=== PATIENT | female | born 1985 | race Two or more races ===

== ENCOUNTER → 2017-09-13 11:43 | Outpatient (CLI) | payer OTHER, SELFPAY ==
--- NOTE | 2017-09-13 12:15 | CT_ITS ---
CT abdomen pelvis w con CLINICAL INDICATION: ITS.REASON: NAUSEA,VOMITING WITH BLOOD, ABD PAIN ORDERING PHYSICIAN: Charley Chanel PATIENT AGE: 31 years TECHNIQUE: Axial images obtained with sagittal and coronal reformats. All CT scans at the facility use one or more dose reduction, viz: automated exposure control; ma/kV adjustment per patient size (including targeted exams where dose is matched to indication; i.e. head); or iterative reconstruction technique. PROCEDURE: Oral Contrast: Gastroview IV Contrast: 75 mL's of Isovue-370 . FINDINGS: No acute finding in the lung bases. No focal liver lesion. Prior cholecystectomy with only minimal prominence of the biliary tree. The spleen, adrenal glands, and pancreas are unremarkable. No renal or ureteral calculi or hydronephrosis. Unremarkable appendix. No evidence of diverticulitis, intestinal obstruction, or free air. There is a tiny umbilical hernia which contains fat. There is a small amount fluid in the cul-de-sac. There is a macrolobulated 18 mm isodensity right adnexa with a thin rim of contrast enhancement and may be due to ruptured ovarian cyst. No acute bony anomalies. IMPRESSION: 1. Suspect ruptured right ovarian cyst measuring 18 mm with a small amount fluid in the cul-de-sac. 2. Otherwise negative CT abdomen pelvis
== END ==
PROVIDERS: PCP Family Medicine; Visit Provider Nurse Practitioner
DX: R11.2 Nausea with vomiting, unspecified (principal); R10.9 Unspecified abdominal pain; K92.0 Hematemesis
CPT/HCPCS: 74177; Q9967

== ENCOUNTER → 2017-09-20 08:04 | Outpatient (CLI) | payer OTHER, SELFPAY ==
--- NOTE | 2017-09-20 08:12 | FL_ITS ---
FL upper GI w air HISTORY: ITS.REASON: NAUSEA, VOMITING,ABD PAIN, HEMATEMESIS ORDERING PHYSICIAN: Alexx Vivas MD PATIENT AGE: 31 years COMPARISON: FINDINGS: The esophagus, stomach, and duodenum have an unremarkable appearance. There is no evidence of hiatal hernia. No ulcer or mass evident. No mucosal abnormalities apparent. There is normal peristalsis. The duodenal C-loop is nondisplaced. There has been prior cholecystectomy FLUOROSCOPY TIME : 1 minute and 55 seconds. IMPRESSION: Negative upper GI
[2017-09-20 10:26] LABS: Alanine Aminotransferase 31 U/L (12-78); Albumin Level 3.9 gm/dL (3.4-5.0); Albumin/Globulin Ratio 1.1 (1.1-1.8); Alkaline Phosphatase 57 U/L (46-116); Amylase 45 U/L (25-125); Aspartate Amino Transferase 18 U/L (15-37); Bilirubin,Total 0.5 mg/dL (0.2-1.0); Blood Urea Nitrogen 13 mg/dL (7-18); Calcium 8.8 mg/dL (8.5-10.1); Carbon Dioxide 26 mmol/L (21.0-32.0); Chloride 105 mmol/L (98-107); Creatinine,Serum 0.58 mg/dL (0.55-1.02); Estimated Glomerular Filt Rate 122 ml/min (>60); GFR (African American) 148 ML/MIN (>60); Globulin 3.6 gm/dl (1.3-3.2); Glucose 98 mg/dL (74-106); Lipase 122 u/L (73-393); Sodium 141 mmol/L (136-145); Total Protein,Serum 7.5 gm/dL (6.4-8.2)
== END ==
PROVIDERS: Nurse Practitioner; Family Provider Family Medicine; PCP Family Medicine; Visit Provider Family Medicine
DX: R11.2 Nausea with vomiting, unspecified (principal); R10.9 Unspecified abdominal pain; K92.0 Hematemesis
CPT/HCPCS: 36415; 74247; 80053; 82150; 83690

== ENCOUNTER → 2017-09-25 14:07 | Outpatient (POV) | payer OTHER, SELFPAY | PROVIDERS: Family Provider Family Medicine; PCP Family Medicine; Visit Provider Nurse Practitioner Acute Care | DX: Z00.00 Encounter for general adult medical examination without abnormal findings (principal) ==

== ENCOUNTER → 2017-10-05 09:57 | Outpatient (CLI) | payer OTHER, SELFPAY ==
--- NOTE | 2017-10-05 09:58 | US_ITS ---
US transvaginal HISTORY: Pelvic pain/pressure, bleeding ITS.REASON: US T/V- Heavy bleeding ORDERING PHYSICIAN: Robyn Miguel MD PATIENT AGE: 32 years Comparison: None FINDINGS: The uterus measures 10 x 4 x 6 cm with a combined endometrial thickness of 9 mm. No uterine mass evident. The left ovary is 3 x 2 cm and contains small follicles and a small cyst measuring up to 1.5 cm. The right ovary measures 4 x 2.7 cm containing small follicles and a cyst at 1.7 cm No cul-de-sac fluid evident. IMPRESSION: 1. Mildly prominent uterus with endometrial thickness upper limits of normal 2. Small bilateral ovarian cysts
== END ==
PROVIDERS: Family Provider Family Medicine; PCP Family Medicine; Visit Provider Obstetrics & Gynecology
DX: N92.0 Excessive and frequent menstruation with regular cycle (principal)
CPT/HCPCS: 76830

== ENCOUNTER → 2017-11-20 10:18 | Outpatient (CLI) | payer OTHER, SELFPAY ==
[2017-11-20 10:51] LABS: Basophils % 0.2 % (0.1-2.0); Eosinophils # 0.2 K/mm3 (0.0-0.4); Eosinophils % 3.1 % (0.1-12.0); Hematocrit 38.8 % (37.0-47.0); Lymphocytes # 1.9 K/mm3 (0.7-4.5); Lymphocytes % 27.1 K/mm3 (10-50); Mean Corpuscular HGB Conc 33.5 g/dL (31.8-35.4); Mean Corpuscular Hemoglobin 28.5 pg (27.0-31.2); Mean Corpuscular Volume 85.1 fl (81-99); Mean Platelet Volume 8.8 fl (7.4-10.4); Monocytes # 0.3 K/mm3 (0.1-1.0); Monocytes % 4.7 % (1.7-9.3); Neutrophils # 4.6 K/mm3 (1.8-7.8); Neutrophils % 64.9 % (37.0-80.0); Platelet Count 266 K/mm3 (142-424); Red Blood Count 4.56 M/mm3 (4.20-5.40); Red Cell Distribution Width 13.1 % (11.5-17.5); White Blood Count 7.1 K/mm3 (4.8-10.8)
[2017-11-20 11:28] LABS: HCG Qualitative, Serum Negative (Negative)
[2017-11-20 11:58] LABS: Anion Gap 11.9 mEq/L (5-15); Blood Urea Nitrogen 12 mg/dL (7-18); Calcium 8.6 mg/dL (8.5-10.1); Carbon Dioxide 26 mmol/L (21.0-32.0); Chloride 107 mmol/L (98-107); Creatinine,Serum 0.58 mg/dL (0.55-1.02); Estimated Glomerular Filt Rate 121 ml/min (>60); GFR (African American) 147 ML/MIN (>60); Glucose 87 mg/dL (74-106); Potassium 3.9 mmoL/L (3.5-5.1); Sodium 141 mmol/L (136-145)
== END ==
PROVIDERS: Visit Provider Obstetrics & Gynecology
DX: Z01.818 Encounter for other preprocedural examination (principal); N92.0 Excessive and frequent menstruation with regular cycle; R10.2 Pelvic and perineal pain; N94.6 Dysmenorrhea, unspecified; N85.2 Hypertrophy of uterus
CPT/HCPCS: 36415; 80048; 84703; 85025

== ENCOUNTER → 2017-11-21 12:08 | Outpatient (CLI) | payer OTHER, SELFPAY | PROVIDERS: Family Provider Family Medicine; PCP Family Medicine; Visit Provider Obstetrics & Gynecology | DX: Z01.818 Encounter for other preprocedural examination (principal) | CPT/HCPCS: 36415; 86850 ==

== ENCOUNTER 2017-11-23 08:30 | Inpatient (IN) ==
--- NOTE | 2017-11-23 10:10 | Progress Note ---
[facility] Anesthesia Checklist - Patient Identification Patient Identification: Arm Band - Structural Data Admitted From: Home Planned Operative Procedure/s: maddy bso Consent for Planned Operative Procedure(s) Verified: Yes Verified Documents: Surgical Consent, History and Physical - NPO Status Verified Time NPO: 00:00 - Additional verifications Anesthesia Reactions: No - Airway Assessment C-Spine Mobility Assessed: Yes (mp2) TMJ Mobility Assessed: Yes Dentition: Good Dentition - Neurological Assessment Level of Consciousness: Awake, Alert - Anesthesia Plan Anesthesia Risk discussed: Yes Anesthesia Plan: Verified ASA Class: II Anesthesia Type: General (with TAP block) [facility] Anesthesia HX Medical History: Reports:: Anxiety Denies:: Asthma, Cancer, Depression, Diabetes Mellitus Type 1, Diabetes Mellitus Type 2, Hyperlipidemia, Hypertension, Internal Pacemaker, Lung Disease , Migraine, MRSA, Seizures Other Medical History: Denies: Blood Transfusion Reaction Other Surgeries: Yes: Cholecystectomy. No: Pacemaker Amputation: No Fractures: No *Family Hx:: Cancer, Diabetes, Thyroid Disorder
--- NOTE | 2017-11-23 13:11 | Progress Note ---
[facility] Anesthesia Record Part II Discharge Time: 13:35 Destination: 2nd floor PACU nurse assessment reviewed?: Yes Patient Condition:: Good Anesthesia Complications:: None
--- NOTE | 2017-11-23 13:11 | Progress Note ---
[facility] Anesthesia Record Part I Intake, IV Amount: 2,000 Estimated blood loss (mL): 300 Urine output (mL): 150 Blood Pressure: 141/71 SaO2: 96 Pulse Rate: 82 Respiratory Rate: 16 Temperature: 98.3 F Patient is:: Drowsy, Stable Stable to PACU at:: 13:05
--- NOTE | 2017-11-23 14:59 | Pharmacy Consult Notes ---
[facility] VTE Monitoring - Patient Demographics Admission date: 11/23/17 Report Date: 11/23/17 Time: 14:59 Allergies/Adverse Reactions: Patient Allergies No Known Allergies Allergy (Verified 10/30/17 13:53) Height: 1.63 m Weight: 78.471 kg - VTE Risk Was VTE Risk Assessment Performed: Yes Clinical Trial Participant: No - Prophylaxis VTE Prophylaxis Ordered?: Yes Types of VTE Prophylaxis: IPCS Knee High
--- NOTE | 2017-11-23 22:00 | Operative Note ---
Date of procedure: 11/23/17 Pre-op Diagnosis:: 1. Heavy menstrual bleeding 2. Severe dysmenorrhea 3. Chronic pelvic pain 4. Bulky/enlarged uterus 5. Bilateral ovarian cysts Post-op Diagnosis:: 1. Heavy menstrual bleeding 2. Severe dysmenorrhea 3. Chronic pelvic pain 4. Pelvic congestion Procedure performed:: Total abdominal hysterectomy, bilateral salpingectomy Surgeon:: Robyn Miguel MD Batch Mixer(s):: Stuart Baptiste MD ASSEMBLER RUBBER FOOTWEAR:: Chauncey Perry Anesthesia: GETA Estimated blood loss (mL): 300 Operative findings:: Grossly normal size uterus without obvious fibroids Grossly normal fallopian tubes and ovaries bilaterally Extensive pelvic congestion, bilaterally No evidence of endometriosis or pelvic adhesions Operative note:: The patient was taken to the operating room and general anesthesia was administered without difficulty. She was prepped and draped in the supine position. A Pfannenstiel skin incision was made approximately 2 cm above the pubic symphysis with a scalpel and carried down to the underlying layer of fascia. The fascia was incised in the midline and extended laterally sharply. The rectus muscles were sharply dissected off the fascia and in the midline. The peritoneum was turned and sharply, with good visualization of the underlying structures. The peritoneal incision was extended bluntly. A survey of the patient's pelvis and abdomen revealed a grossly normal sized uterus without any obvious fibroids. No evidence of endometriosis or pelvic adhesions were observed. Significant pelvic congestion was noted bilaterally, adjacent to both adnexa, and extending throughout the IP ligaments on both sides. At this time, the patient was placed in Trendelenburg and a Chris retractor was placed in the abdomen; the bowel was packed with moist laparotomy sponges. Tooth tenaculum was placed on the uterine fundus and the uterus was elevated out of the pelvis. No fibroids or other visible uterine lesions were noted. The round ligaments were identified and transected and suture-ligated. The anterior lip of the broad ligament was dissected medially on both sides and the bladder flap was created digitally. The posterior leaf of the broad ligament was dissected until the ureters were able to be identified on either side and noted to be free of the forthcoming adnexal pedicles. Infundibulopelvic ligaments were doubly clamped transected and suture ligated on either side, with excellent hemostasis noted. The fallopian tubes on either side were clamped transected and suture ligated and the specimens were set aside for pathology. The uterine arteries were skeletonized on either side, and were clamped, transected and suture ligated with excellent hemostasis. The bladder flap was further bluntly dissected off the lower uterine segment with excellent hemostasis and without injury to the bladder. The cardinal and uterosacral ligaments were clamped transected and suture ligated on both sides until the vaginal mucosa was entered. The vaginal incision was extended circumferentially with the Jorganson scissors; the uterus and cervix were removed abdominally and sent for pathology, along with the fallopian tubes. The vaginal cuff angles were closed 0 Vicryl [id number] sutures and were transfixed to the ipsilateral cardinal and uterosacral ligaments. The remainder of the vaginal cuff was closed with 0 Vicryl interrupted sutures. The pelvis was copiously irrigated with a solution of sterile water containing 1 g of Ancef. The cuff was examined and found to be hemostatic. Tamar was placed over the vaginal cuff and area of bladder flap dissection for additional hemostasis. The adnexal pedicles and area of the fallopian tube excision were reexamined and remained hemostatic. All instruments were removed from the patient's pelvis and abdomen and an initial count was correct. The peritoneum was closed with 2-0 Vicryl in a running fashion. Fascia was closed with 0 Vicryl in a running fashion. The skin was closed with wedny. The patient tolerated the procedure well; sponge/lap/needle and instrument counts were correct 2. She was taken to the recovery room awake in stable condition. Estimated blood loss: 300cc. Condition: stable Disposition: PACU Specimens:: Uterus and bilateral fallopian tubes Complications:: None
[2017-11-24 06:06] LABS: Hematocrit 31.6 % (37.0-47.0); Hemoglobin 10.6 g/dL (12.2-16.2)
[2017-11-24 06:23] LABS: Anion Gap 7.9 mEq/L (5-15); Calcium 8.2 mg/dL (8.5-10.1); Potassium 3.9 mmoL/L (3.5-5.1)
--- NOTE | 2017-11-24 15:28 | Progress Note ---
Internal Medicine - PN: Subj *Date: 11/24/17 *Time: 15:24 Interval history: POD #1 LUIS M, bilateral salpingectomy Having some difficulty with pain management overnight because IV narcotics making her feel drowsy; switched over to po pain meds for today Denies nausea/vomiting and tolerating clear liquids Catheter removed but has not voided yet Exam Vital signs and Labs for Last 24 Hours: Temp Pulse Resp BP Pulse Ox 97.8 F 70 18 103/57 100 11/24/17 12:30 11/24/17 12:30 11/24/17 12:30 11/24/17 12:30 11/24/17 12:30 Laboratory Results - last 24 hr 11/23/17 10:50: Urine Color Yellow, Urine Appearance Clear, Urine pH 7.5, Ur Specific [place] 1.020, Urine Protein Negative, Urine Glucose (UA) Negative, Urine Ketones Negative, Urine Blood Trace-l, Urine Nitrate Negative, Urine Bilirubin Negative, Urine Urobilinogen 0.2, Ur Leukocyte Esterase Negative, Urine RBC Occasional, Urine WBC Occasional, Ur Squamous Epith Cells 10-20, Urine Bacteria Trace 11/24/17 05:04: Hgb 10.6 L, Hct 31.6 L 11/24/17 05:04: Sodium 138, Potassium 3.9, Chloride 106, Carbon Dioxide 28, Anion Gap 7.9, BUN 6 L, Creatinine 0.61, Estimated Creat Clear 166, Estimated GFR 114, Est GFR ( Amer) 138, Glucose 138 H, Calcium 8.2 L I & O for Last 24 hours: Intake & Output 11/22/17 11/23/17 11/24/17 11/25/17 11:59 11:59 11:59 11:59 Intake Total 4121 / 4121 Output Total 4850 / 4850 350 / 350 Balance -729 / -729 -350 / -350 Weight 173 lb 173 lb - Constitutional no acute distress - *Routine HEENT Exam Head: Present: normocephalic, atraumatic - *Routine Respiratory Exam Present: CTA bilaterally. Absent: respiratory distress - *Routine Cardiovascular Exam Present: RRR. Absent: tachycardia - *Routine Abdominal Exam Present: soft. Absent: tenderness, distended, guarding - *Routine Extremities Exam Absent: edema, tenderness - *Routine Skin Exam Present: intact, dry, warm. Absent: lesions, rash - *Routine Neurological Exam Present: alert, oriented X3. Absent: altered mental status - Routine Psychiatric Exam Present: normal affect. Absent: depressed, anxious Assessment and Plan (1) H/O hysterectomy for benign disease Current visit: Yes Status: Acute Category: Surgical Code(s): Z90.710 - Acquired absence of both cervix and uterus (2) Heavy menstrual bleeding Current visit: No Status: Acute Category: Medical Code(s): N92.0 - Excessive and frequent menstruation with regular cycle (3) Pain in female pelvis Current visit: No Status: Acute Category: Medical Code(s): R10.2 - Pelvic and perineal pain (4) Severe dysmenorrhea Current visit: No Status: Acute Category: Medical Code(s): N94.6 - Dysmenorrhea, unspecified (5) Pelvic congestion Current visit: No Status: Acute Category: Medical Code(s): N94.89 - Other specified conditions associated with female genital organs and menstrual cycle - Assessment and plan all Dx Assessment and Plan for all problems:: Routine postop care Advance care as tolerated Anticipate discharge POD #3
--- NOTE | 2017-11-25 17:43 | Progress Note ---
Internal Medicine - PN: Subj *Date: 11/25/17 *Time: 17:40 Interval history: POD #2 LUIS M, bilateral salpingectomy Denies N/V; tolerating regular diet. Voiding without difficulty, +flatus Pain control not as good with po dilaudid; will switch back to oxycodone to see if better relief Exam Vital signs and Labs for Last 24 Hours: Temp Pulse Resp BP Pulse Ox 98.8 F 69 18 133/69 98 11/25/17 13:39 11/25/17 13:39 11/25/17 13:39 11/25/17 13:39 11/25/17 13:39 I & O for Last 24 hours: Intake & Output 11/23/17 11/24/17 11/25/17 11/26/17 11:59 11:59 11:59 11:59 Intake Total 4121 / 4121 480 / 480 Output Total 4850 / 4850 1300 / 1300 Balance -729 / -729 -820 / -820 Weight 173 lb - Constitutional no acute distress - *Routine Respiratory Exam Absent: respiratory distress - *Routine Cardiovascular Exam Absent: tachycardia - *Routine Abdominal Exam Present: soft, tenderness (appropriate postop pain incision). Absent: distended , guarding - *Routine Extremities Exam Absent: edema, tenderness - *Routine Skin Exam Present: intact (incision dry/intact) - *Routine Neurological Exam Present: alert, oriented X3 - Routine Psychiatric Exam Present: normal affect. Absent: depressed, anxious Assessment and Plan (1) H/O hysterectomy for benign disease Current visit: Yes Status: Acute Category: Surgical Code(s): Z90.710 - Acquired absence of both cervix and uterus (2) Heavy menstrual bleeding Current visit: No Status: Acute Category: Medical Code(s): N92.0 - Excessive and frequent menstruation with regular cycle (3) Pain in female pelvis Current visit: No Status: Acute Category: Medical Code(s): R10.2 - Pelvic and perineal pain (4) Severe dysmenorrhea Current visit: No Status: Acute Category: Medical Code(s): N94.6 - Dysmenorrhea, unspecified (5) Pelvic congestion Current visit: No Status: Acute Category: Medical Code(s): N94.89 - Other specified conditions associated with female genital organs and menstrual cycle - Assessment and plan all Dx Assessment and Plan for all problems:: POD#2 Routine PO care pain meds changed to oxycodone anticipate dc tomorrow
--- NOTE | 2017-11-26 14:45 | Discharge Summary ---
General - General Admission date:: 11/23/17 Discharge date: 11/26/17 HPI HPI: POD #3 LUIS M, bilateral salpingectomy Tolerating regular diet, ambulating and voiding without difficullty Having less side effects with po percocet compared to po dilaudid Ready for discharge today Hospital Course Hospital Course: as per HPI Objective Vital signs: Temp Pulse Resp BP Pulse Ox 98.3 F 76 18 111/62 100 11/26/17 12:00 11/26/17 12:00 11/26/17 12:00 11/26/17 12:00 11/26/17 12:00 no acute distress - *Routine Respiratory Exam Absent: respiratory distress - *Routine Abdominal Exam Present: soft. Absent: tenderness, distended, guarding (Incision intact with wendy) - *Routine Extremities Exam Absent: edema - *Routine Skin Exam Absent: rash - Routine Psychiatric Exam Absent: depressed, anxious DS: Diagnosis - Discharge Diagnosis (1) H/O hysterectomy for benign disease Status: Acute (2) Heavy menstrual bleeding Status: Acute (3) Pain in female pelvis Status: Acute (4) Severe dysmenorrhea Status: Acute (5) Pelvic congestion Status: Acute Discharge Plan - Patient Discharge Instructions ACTIVITY: Continue current activity, No heavy lifting - Follow up Plan Disposition: Home, Self-Retirement Medications: Home Medications Medication Instructions Recorded Confirmed Type Buspirone HCl [Buspar 10mg tablet] 5 mg PO BID 11/23/17 11/23/17 History Prescriptions/Medication Reconciliation: New Oxycodone HCl [OxyIR 5mg tablet] 10 mg PO Q4HP PRN tablet PRN Reason: Severe Pain Ibuprofen [Motrin 400mg tablet] 800 mg PO Q6HP PRN tablet PRN Reason: Mild Pain Continue Buspirone HCl [Buspar 10mg tablet] 5 mg PO BID
== END 2017-11-26 16:40 | disposition home or self-care (01) ==
LOC: OB 08:51 → EDSTATUS 10:30 → OB 13:45
PROVIDERS: ADMIT Obstetrics & Gynecology; ATTEND Obstetrics & Gynecology

== ENCOUNTER → 2017-12-25 10:38 | Outpatient (POV) | payer OTHER, SELFPAY | PROVIDERS: Family Provider Family Medicine; PCP Family Medicine; Visit Provider Nurse Practitioner Acute Care | DX: Z00.00 Encounter for general adult medical examination without abnormal findings (principal) ==

== ENCOUNTER → 2018-01-12 09:32 | Outpatient (CLI) | payer OTHER, SELFPAY ==
--- NOTE | 2018-01-12 | CA_ITS ---
PROCEDURE: 2-D M-mode and color Doppler study INDICATIONS FOR THE TEST: Chest pain+ COPD Heart Murmur Tobacco Smoking Palpitations+ Fatigue+ Syncope+ Edema Hypertension Diabetes Mellitus Rheumatic Fever SOB CORDERO Obesity Hyperlipidemia Family History HD+ Additional History PATIENT INFORMATION HEIGHT: 64 WEIGHT: 172 GENDER: Female B/P: 100/76 2-D/M-MODE INTERPRETATION: 2-D MEASUREMENTS OBSERVED VALUES IN CMS Right Ventricular Dimension (RVDd) 2.2 Interventricular Septum (Thickness)(IVsd) 0.8 Left Ventricular Internal Dimensions(LVIDd) 4.1 Left Ventricular Posterior Wall (Thickness)(LVPWd) 0.8 Aortic Root 2.4 Aortic Cusp Separation 1.9 Left Atrial Dimensions (LAD) 3.3 2D 1. Left atrium is normal size, left ventricle is normal size, there is no concentric left ventricular hypertrophy, visually estimated ejection fraction 55% with no obvious regional wall motion abnormality. 2. The right atrium and right ventricle are normal size and contractility. 3. The aortic, mitral and tricuspid valve are grossly normal. 4. The pulmonic valve is poorly visualized. 5. No significant pericardial effusion noted. DOPPLER INTERROGATION: Doppler interrogation of the aortic, mitral and tricuspid valvular presence of mild mitral and tricuspid regurgitation, tricuspid regurgitation jet velocity is insufficient for calculation of the right ventricular systolic pressure, diastolic parameters are within normal range. CONCLUSION: 1. Normal left ventricular size, preserved left ventricular systolic function, visually estimated ejection fraction 55% with no obvious regional wall motion abnormality diastolic parameters are within normal range. 2. Mild mitral and tricuspid regurgitation 3. No significant pericardial effusion noted.
--- NOTE | 2018-01-12 09:35 | XR_ITS ---
XR chest 2V HISTORY: ITS.REASON: LEFT CHEST PRESSURE ORDERING PHYSICIAN: Alexx Vivas MD PATIENT AGE: 32 years COMPARISON: 02/29/2016 FINDINGS: The cardiomediastinal silhouette and pulmonary vascularity are within normal limits. The lungs are clear without infiltrates, suspicious nodules, or pleural effusions. No acute bony abnormalities. IMPRESSION: Negative chest, no acute finding
--- NOTE | 2018-01-12 13:04 | US_ITS ---
US thyroid HISTORY: Enlarged thyroid gland ITS.REASON: H/O MALIGNANT NEOPLASM ORDERING PHYSICIAN: Alexx Vivas MD PATIENT AGE: 32 years Comparison: 03/10/2017 FINDINGS: The isthmus is slightly prominent 4 mm. The right lobe is 4.5 x 1.6 x 1.9 cm. There is homogeneous echogenicity. The left lobe is 4.4 x 1.3 x 1.9 cm with homogeneous echogenicity. No nodules evident. IMPRESSION: Mild thyromegaly, no thyroid nodules appear
== END ==
PROVIDERS: Family Provider Family Medicine; PCP Family Medicine; Visit Provider Family Medicine
DX: R07.89 Other chest pain (principal); R00.2 Palpitations; Z85.850 Personal history of malignant neoplasm of thyroid
CPT/HCPCS: 71046; 76536; 93005; 93306

== ENCOUNTER → 2018-01-14 15:59 | Outpatient (CLI) | payer OTHER, SELFPAY | PROVIDERS: PCP Family Medicine; Visit Provider Nurse Practitioner | DX: R00.2 Palpitations (principal) | CPT/HCPCS: 93225; 93226 ==

== ENCOUNTER → 2018-02-01 13:32 | Outpatient (CLI) | payer OTHER, SELFPAY ==
--- NOTE | 2018-02-01 13:33 | US_ITS ---
US transvaginal HISTORY: ITS.REASON: US T/V- Pelvic Pain ORDERING PHYSICIAN: Robyn Miguel MD PATIENT AGE: 32 years Comparison: 10/05/2017 FINDINGS: There has been an interval hysterectomy. The vaginal cuff has an unremarkable appearance. The left ovary is 3.5 x 3.8 cm and contains a 2.5 cm complex cyst with some internal echoes. There is blood flow to the left ovary. There is a small amount cul-de-sac fluid and small amount fluid adjacent to the left ovary.. The right ovary is 3.3 x 2.9 cm. Previously noted 1.5 cm cyst of the right ovary is no longer apparent. There are a few small follicles of the right ovary. IMPRESSION: Interval hysterectomy. 2.5 cm complex left ovarian cyst consistent with hemorrhagic cyst Small right ovarian follicles
== END ==
PROVIDERS: Family Provider Family Medicine; PCP Family Medicine; Visit Provider Obstetrics & Gynecology
DX: R10.2 Pelvic and perineal pain (principal)
CPT/HCPCS: 76830

== ENCOUNTER → 2018-02-05 08:43 | Outpatient (POV) | payer OTHER, SELFPAY | PROVIDERS: Family Provider Family Medicine; PCP Family Medicine; Visit Provider Nurse Practitioner Acute Care | DX: Z00.00 Encounter for general adult medical examination without abnormal findings (principal) ==

== ENCOUNTER → 2018-02-05 13:13 | Outpatient (CLI) | payer OTHER, SELFPAY ==
--- NOTE | 2018-02-05 13:15 | US_ITS ---
US kidney retroperitoneal comp HISTORY: ITS.REASON: HEMATURIA ORDERING PHYSICIAN: Alexx Vivas MD PATIENT AGE: 32 years Comparison: None FINDINGS: RIGHT KIDNEY:Unremarkable. Normal size and echogenicity. No hydronephrosis 10 x 4 x 5 cm LEFT KIDNEY:Unremarkable. No hydronephrosis. Normal size and echogenicity. 11 by 7 x 6 cm OTHER FINDINGS: No other pertinent findings IMPRESSION: Unremarkable bilateral renal ultrasound
== END ==
PROVIDERS: Family Provider Family Medicine; PCP Family Medicine; Visit Provider Family Medicine
DX: R31.9 Hematuria, unspecified (principal)
CPT/HCPCS: 76770

== ENCOUNTER → 2018-03-05 12:27 | Outpatient (CLI) | payer OTHER, SELFPAY ==
--- NOTE | 2018-03-05 12:32 | US_ITS ---
US transvaginal HISTORY: ITS.REASON: Pelvic Pain ORDERING PHYSICIAN: Stuart Baptiste MD PATIENT AGE: 32 years Comparison: None FINDINGS: There is been prior hysterectomy. The left ovary is 4.8 x 3.8 x 4.2 cm and contains a 4.3 x 3 cm cyst. There are internal septations of the cysts have a somewhat lacy appearance and may represent a hemorrhagic ovarian cyst. Small amount fluid is present adjacent to the left ovary. The right ovary is 2.5 x 2.3 cm and contains a 9 mm cyst. IMPRESSION: 1. 4.3 x 3 cm complex left ovarian cyst consistent with a hemorrhagic cyst. Suggest 6-12 week follow-up to confirm resolution. Small amount fluid is noted adjacent to the left ovary 2. Prior hysterectomy
== END ==
PROVIDERS: Family Provider Family Medicine; PCP Family Medicine; Visit Provider Obstetrics & Gynecology
DX: R10.2 Pelvic and perineal pain (principal)
CPT/HCPCS: 76830

== ENCOUNTER → 2018-04-05 14:23 | Outpatient (CLI) | payer OTHER, SELFPAY ==
[2018-04-05 14:26] LABS: Microscopic, Urine URINE MICROSCOPIC (MICROSCOPIC)
[2018-04-05 14:49] LABS: Appearance,Urine CLEAR (Clear); Bilirubin,Urine Negative (Negative); Blood, Urine TRACE-I (Negative); Color,Urine YELLOW (Yellow); Glucose,Urine (UA) Negative (Negative); Ketones,Urine Negative (Negative); Leukocyte Esterase,Urine Negative (Negative); Nitrate,Urine Negative (Negative); Protein,Urine Negative (Negative); Urobilinogen,Urine 0.2 EU/dl (0.2)
[2018-04-05 14:58] LABS: Basophils % 0.3 % (0.1-2.0); Eosinophils # 0.2 K/mm3 (0.0-0.4); Eosinophils % 1.8 % (0.1-12.0); Hematocrit 39.1 % (37.0-47.0); Lymphocytes # 2.8 K/mm3 (0.7-4.5); Lymphocytes % 27.4 % (10-50); Mean Corpuscular HGB Conc 33.2 g/dL (31.8-35.4); Mean Corpuscular Hemoglobin 26.4 pg (27.0-31.2); Mean Corpuscular Volume 79.6 fl (81-99); Mean Platelet Volume 8.2 fl (7.4-10.4); Monocytes # 0.4 K/mm3 (0.1-1.0); Monocytes % 3.9 % (1.7-9.3); Neutrophils # 6.8 K/mm3 (1.8-7.8); Neutrophils % 66.6 % (37.0-80.0); Platelet Count 316 K/mm3 (142-424); Red Blood Count 4.91 M/mm3 (4.20-5.40); Red Cell Distribution Width 15.2 % (11.5-17.5); White Blood Count 10.3 K/mm3 (4.8-10.8)
[2018-04-05 16:33] LABS: Alanine Aminotransferase 45 U/L (12-78); Albumin Level 3.9 gm/dL (3.4-5.0); Alkaline Phosphatase 82 U/L (46-116); Anion Gap 16.9 mEq/L (5-15); Aspartate Amino Transferase 30 U/L (15-37); Bilirubin,Total 0.4 mg/dL (0.2-1.0); Blood Urea Nitrogen 11 mg/dL (7-18); Calcium 8.8 mg/dL (8.5-10.1); Carbon Dioxide 25 mmol/L (21.0-32.0); Chloride 100 mmol/L (98-107); Creatinine,Serum 0.55 mg/dL (0.55-1.02); Estimated Glomerular Filt Rate 129 ml/min (>60); GFR (African American) 156 ML/MIN (>60); Globulin 3.9 gm/dl (1.3-3.2); Glucose 103 mg/dL (74-106); Potassium 3.9 mmoL/L (3.5-5.1); Sodium 138 mmol/L (136-145); Total Protein,Serum 7.8 gm/dL (6.4-8.2)
[2018-04-05 19:02] LABS: Bacteria,Urine 2+ /lpf
[2018-04-09 11:14] LABS: Cancer Antigen (CA) 125 8.9 U/mL (0.0-38.1)
== END ==
PROVIDERS: Visit Provider Obstetrics & Gynecology
DX: Z01.818 Encounter for other preprocedural examination (principal); R19.00 Intra-abdominal and pelvic swelling, mass and lump, unspecified site; R10.2 Pelvic and perineal pain; N94.9 Unspecified condition associated with female genital organs and menstrual cycle
CPT/HCPCS: 36415; 80053; 81001; 85025; 86316; 87086

== ENCOUNTER 2018-04-10 06:44 | Inpatient (IN) ==
--- NOTE | 2018-04-10 07:30 | Progress Note ---
[facility] Anesthesia Checklist - Patient Identification Patient Identification: Arm Band - Structural Data Admitted From: Home Planned Operative Procedure/s: pelviscopy, bso Consent for Planned Operative Procedure(s) Verified: Yes Verified Documents: Surgical Consent, History and Physical - NPO Status Verified Time NPO: 00:00 - Additional verifications Anesthesia Reactions: No - Airway Assessment C-Spine Mobility Assessed: Yes (mp2) TMJ Mobility Assessed: Yes Dentition: Good Dentition - Neurological Assessment Level of Consciousness: Awake, Alert - Anesthesia Plan Anesthesia Risk discussed: Yes Anesthesia Plan: Verified Anesthesia Type: General [facility] History I have reviewed the patient's past medical history: Yes Medical History: Denies:: Anxiety, Asthma, Cancer, Depression, Diabetes Mellitus Type 1, Diabetes Mellitus Type 2, Hyperlipidemia, Hypertension, Internal Pacemaker, Lung Disease, Migraine, MRSA, Seizures Other Medical History: Denies: Blood Transfusion Reaction Other Surgeries: Yes: Cholecystectomy, Hysterectomy-Total, Hysterectomy-Partial, Other. No: Pacemaker Amputation: No Fractures: No - *Social History Educational Level: Completed College Smoking Status: Never smoker Alcohol Intake: never Alcohol Intake Frequency:: holidays/special occasions only Substance Use Type: denies use Occupational Status: unemployed Household Members: family, children - Psychiatric History Expresses thoughts of harming self/others: None Suicide Plan Description: No Plan Pschychiatric History:: Denies:: Anxiety, Depression *Family Hx:: Cancer, Diabetes, Thyroid Disorder
--- NOTE | 2018-04-10 09:49 | Operative Note ---
Date of procedure: 04/10/18 Pre-op Diagnosis:: 1. Pelvic pain. 2. Left ovarian cyst. Post-op Diagnosis:: 1. Pelvic pain. 2. Hemorrhagic left ovarian cyst. 3. Extensive pelvic adhesions. Procedure performed:: 1. Diagnostic laparoscopy. 2. Exploratory laparotomy. 3. Extensive lysis of adhesions. 4. Left oophorectomy. Surgeon:: Stuart Baptiste MD Business Info Consultant(s):: MARIAN Bowser DEFENSIVE FIRE CONTROL SYSTEMS OPERATOR:: Chauncey Perry Anesthesia: GETKajal Estimated blood loss (mL): 300 Operative findings:: 1. Extensive pelvic adhesions. 2. Hemorrhagic left ovarian cyst. Operative note:: After the patient was prepped and draped in usual fashion and general anesthesia was admitted a moist pack was placed in the vagina for elevation of the vaginal cuff during the laparoscopy. After appropriate draping, the skin on either side of the umbilicus was tented up with towel clips. A small incision was made in the base of the umbilicus with a knife, and a Veress needle was inserted into the abdominal cavity. After a demonstration of negative pressure, an adequate pneumoperitoneum was created with carbon dioxide gas. The Veress needle was then replaced with a trocar and cannula, using the [employer] system, and the trocar replaced with a laparoscope. The pelvis was socked in with adhesions. The uterus was surgically absent. Neither adnexa was able to be visualized. The density and vascularity of the adhesions led to the decision to proceed to exploratory laparotomy. The sponge stick was removed from the vagina, and the instruments removed under direct visualization. The skin incision was infused with a dilute solution of Marcaine, and closed with a subcuticular suture of 3-0 Vicryl. The patient was then repositioned and a Pierce catheter was placed. She was reprepped and draped. A low Pfannenstiel incision was then made across the midline through the previous incision, and the fat and fascia was in usual fashion, bleeders being clamped and coagulated along the way. There was a dense, rubbery band ventral added to the rectus muscle, which required extra dissection. The peritoneum was ultimately entered bluntly, and extended above and below. There were extensive omental adhesions to the anterior abdominal wall, and these were taken down with a combination of sharp dissection and cautery. A self-retaining [place] retractor with bladder blade was placed, but the pelvis was difficult to address, because of extensive dense, vascular adhesions filling the pelvis. Extensive lysis of adhesions was carefully carried out, and ultimately the left adnexa was able to be identified. A hemorrhagic cyst was leaking. The fallopian tube had previously been removed. Careful painstaking dissection was carried out and the infundibulopelvic ligament was ultimately able to be isolated and crossclamped and cut, thus removing the left ovary. Several pedicles were To sutured with 0 Vicryl. Because of oozing Surgicel was placed across the ovarian pedicle, and sewn in place. Further dissection was carried out on the right, but at no time was the ovary able to be isolated. This the patient's symptoms were primarily on the left, it was felt prudent to leave the right ovary in situ, rather than risk injury to bowel or ureter. Extensive irrigation was carried out, and Gelfoam was placed in the pelvis because of oozing. The peritoneum was grasped with 3 Yenni clamps, and closed with a running semi-locked suture of 0 Vicryl. The muscle was approximated with a running unlocked suture of 0 Vicryl. The fascia was closed with a running locked suture of #1 Vicryl. The subcutaneous fat and Luanne's fascia were closed with a running unlocked suture of 2-0 Vicryl. The skin was closed with a subcuticular suture of 3-0 Vicryl, and appropriately dressed. The urine was clear in the Pierce catheter. The sponge and needle counts correct. The estimated blood loss was 300 cc. The patient tolerated the procedure well, and was taken to PACU in excellent condition. She will be admitted postoperatively. Condition: stable Disposition: PACU Specimens:: Left ovary Complications:: None
--- NOTE | 2018-04-10 09:57 | Progress Note ---
[facility] Anesthesia Record Part I Intake, IV Amount: 2,000 Estimated blood loss (mL): 300 Urine output (mL): 150 Blood Pressure: 144/68 SaO2: 98 Pulse Rate: 78 Respiratory Rate: 16 Temperature: 99.3 F Patient is:: Drowsy, Stable Stable to PACU at:: 09:45
--- NOTE | 2018-04-10 09:58 | Progress Note ---
[facility] Anesthesia Record Part II Discharge Time: 10:15 Destination: 2nd floor PACU nurse assessment reviewed?: Yes Patient Condition:: Good Anesthesia Complications:: None
[2018-04-10 10:52] LABS: Hematocrit 35.6 % (37.0-47.0); Hemoglobin 11.8 g/dL (12.2-16.2)
--- NOTE | 2018-04-10 17:36 | Progress Note ---
Internal Medicine - PN: Subj *Date: 04/10/18 *Time: 17:35 Interval history: This is day of surgery. The patient is afebrile. Her vital signs are stable. Her urine output is somewhat low and give her a dose of Lasix. Abdomen soft. Surgery has been explained to the patient and her family. Exam Vital signs and Labs for Last 24 Hours: Temp Pulse Resp BP Pulse Ox 97.5 F L 116 H 16 114/61 100 04/10/18 15:35 04/10/18 16:35 04/10/18 16:35 04/10/18 16:35 04/10/18 16:35 Laboratory Results - last 24 hr 04/10/18 08:10: Urine Color Yellow, Urine Appearance Sl cloudy, Urine pH 6.0, Ur Specific [place] >= 1.030, Urine Protein 2+, Urine Glucose (UA) Negative, Urine Ketones Negative, Urine Blood 2+, Urine Nitrate Negative, Urine Bilirubin Negative, Urine Urobilinogen 0.2, Ur Leukocyte Esterase Negative, Urine RBC None, Urine WBC 3-5, Ur Squamous Epith Cells 5-10, Urine Bacteria Trace 04/10/18 10:40: Hgb 11.8 L, Hct 35.6 L I & O for Last 24 hours: Intake & Output 04/08/18 04/09/18 04/10/18 04/11/18 11:59 11:59 11:59 11:59 Intake Total 2074 Output Total 50 / 50 Balance 2024 Weight 168 lb
--- NOTE | 2018-04-10 19:26 | Pharmacy Consult Notes ---
[facility] Pharmacy VTE Monitoring - Patient Demographics Admission date: 04/10/18 Report Date: 04/10/18 Time: 19:26 Allergies/Adverse Reactions: Patient Allergies No Known Allergies Allergy (Verified 04/09/18 08:21) Height: 1.63 m Weight: 76.204 kg - VTE Risk Labs: VTE Related Lab Results Hgb 11.8 g/dL (12.2-16.2) L 04/10/18 10:40 Hct 35.6 % (37.0-47.0) L 04/10/18 10:40 Was VTE Risk Assessment Performed: Yes VTE Score: 1 VTE Risk Level: Very Low Risk Clinical Trial Participant: No - Prophylaxis VTE Prophylaxis Ordered?: Yes Types of VTE Prophylaxis: IPCS Knee High (POST OP) Location of Applied Device: Bilateral Lower Extremeties
[2018-04-10 20:36] LABS: Hematocrit 25.6 % (37.0-47.0)
[2018-04-10 20:38] LABS: Hemoglobin 8.6 g/dL (12.2-16.2)
--- NOTE | 2018-04-10 21:16 | Progress Note ---
Internal Medicine - PN: Subj *Date: 04/10/18 *Time: 21:09 Interval history: I was called to see this postop patient at approximately 2000 because of tachycardia and diaphoresis. She was also complaining of left chest pain and had shallow breathing. She had undergone an exploratory laparotomy early this morning. Her hemoglobin preop was 13.0 g and immediately postop was 11.8 g. The surgery was complicated in that there were extensive adhesions from her previous total abdominal hysterectomy and bilateral salpingectomies. The indication for that surgery was pelvic pain in the left adnexal mass. Initial laparoscopy this morning revealed extensive adhesions and a "socked in pelvis", necessitating the exploratory laparotomy. Even at open procedure, the surgery was difficult because of extensive adhesions. There was some oozing and the estimated blood loss was 300 cc. En route I ordered a stat EKG and chest x-ray and H&H. The EKG was normal, as was a chest x-ray. Upon my arrival, the patient was somewhat diaphoretic. She was and is afebrile. Her lungs revealed minimal bibasilar crackles. Her abdomen is somewhat distended, but soft, and her wounds are clean. Urine output is good/clear (she had received 1 postop dose of Lasix because of initial low output). Her hemoglobin tonight is 8.6 g (a greater than 3 g drop). I consulted Dr. Armando Groves (general surgeon) and he examined the patient at bedside. The result of both of our exams is that her condition is somewhat worrisome and guarded, and the options included transfusion or return to the OR for exploratory laparotomy because of a presumed postop bleed. After discussing these options with the patient and her , the decision has been made to return to the OR in a proactive fashion. They understand the risks and benefits of the procedure and the risks of not proceeding, and wish to proceed with surgery. A preop antibiotic will be administered. The patient has been typed and crossed. Exam Vital signs and Labs for Last 24 Hours: Temp Pulse Resp BP Pulse Ox 97.4 F L 107 H 16 107/60 L 100 04/10/18 17:35 04/10/18 17:35 04/10/18 17:59 04/10/18 17:35 04/10/18 17:35 Laboratory Results - last 24 hr 04/10/18 08:10: Urine Color Yellow, Urine Appearance Sl cloudy, Urine pH 6.0, Ur Specific [place] >= 1.030, Urine Protein 2+, Urine Glucose (UA) Negative, Urine Ketones Negative, Urine Blood 2+, Urine Nitrate Negative, Urine Bilirubin Negative, Urine Urobilinogen 0.2, Ur Leukocyte Esterase Negative, Urine RBC None, Urine WBC 3-5, Ur Squamous Epith Cells 5-10, Urine Bacteria Trace 04/10/18 10:40: Hgb 11.8 L, Hct 35.6 L 04/10/18 20:19: Hgb 8.6 L D, Hct 25.6 L 04/10/18 20:55: Crossmatch (AHG) See Detail I & O for Last 24 hours: Intake & Output 04/08/18 04/09/18 04/10/18 04/11/18 11:59 11:59 11:59 11:59 Intake Total 2074 931 / 931 Output Total 50 / 50 150 / 150 Balance 2024 781 / 781 Weight 168 lb 168 lb
--- NOTE | 2018-04-10 23:29 | Operative Note ---
Date of procedure: 04/10/18 Pre-op Diagnosis:: Postop hemorrhage Post-op Diagnosis:: Postop hemorrhage, transected left ureter Procedure performed:: Exploratory laparotomy, evacuation of hemoperitoneum, oversewing of bleeders. Surgeon:: Stuart Baptiste MD Knotting Machine Operator(s):: Dr. Groves LEASE OUT WORKER:: Chauncey Perry Anesthesia: GETA Estimated blood loss (mL): 1,000 Operative findings:: Hemoperitoneum, transected left ureter Operative note:: After the patient was prepped and draped in usual fashion and general anesthesia was administered, the fresh low Pfannenstiel incision was opened, and taken down through fat and fascia. Blood and clots extruded from the peritoneal cavity. A large amount of clot was removed, and, with difficult visualization and retraction, the left infundibulopelvic ligament pedicle was exposed. There was some oozing from that area, but a distinct pumping bleeder was not identified. Several small exposed areas were oversewn with 2-0 Vicryl, and Gelfoam was used to pack the area and for hemostasis. At that point it was discovered that the left ureter was exposed and apparently had been transected. It was peristalsing and the urine was seen to flow from above. The periureteral tissue was tagged with a suture of 2-0 Prolene for identification. A #10 flat Shady-Hahn drain was placed in the pelvis and brought out through the right lower quadrant. A grenade was attached and a small amount of watery blood was flowing into the grenade. The WINSOME drain sewn in place with 2-0 Vicryl. Because [facility] does not have an on-call urologist, elected to close the wound and transfer the patient to urology (Dr. Cano) for further treatment. The muscle was loosely sewn over the abdominal wall and the fascia was closed with a running unlocked suture of 0 Vicryl. Skin was closed with skin wendy. Under needle counts correct. The urine was clear in Pierce catheter. The estimated blood loss was 1000 cc. Condition: critical Disposition: PACU Specimens:: None Complications:: Patient to be transferred to urology
--- NOTE | 2018-04-10 23:33 | Progress Note ---
[facility] Anesthesia Record Part I Intake, IV Amount: 1,500 Estimated blood loss (mL): 1,000 Urine output (mL): 50 Blood Pressure: 106/64 SaO2: 100 Pulse Rate: 84 Respiratory Rate: 16 Temperature: 98.1 F Patient is:: Drowsy, Stable Stable to PACU at:: 23:25
--- NOTE | 2018-04-10 23:34 | Progress Note ---
[facility] Anesthesia Record Part II Discharge Time: 23:55 Destination: 2nd floor (pt being transferred to ) PACU nurse assessment reviewed?: Yes Patient Condition:: Good Anesthesia Complications:: None
--- NOTE | 2018-04-10 23:42 | Progress Note ---
[facility] Anesthesia Record Part I Intake, IV Amount: 1,500 Estimated blood loss (mL): 1,000 Urine output (mL): 50 Blood Products used (#): PRBC's ([id number]) Blood Pressure: 106/64 SaO2: 100 Pulse Rate: 84 Respiratory Rate: 16 Temperature: 98.1 F Patient is:: Drowsy, Stable Stable to PACU at:: 23:25
[2018-04-11 00:05] LABS: Hematocrit 24.9 % (37.0-47.0); Hemoglobin 8.2 g/dL (12.2-16.2)
== END 2018-04-11 00:13 | disposition short-term general hospital (02) | DRG 742 ==
LOC: OR 06:44 → 2ND 09:34 → OB 10:30
PROVIDERS: ADMIT Obstetrics & Gynecology; ATTEND Obstetrics & Gynecology
CPT/HCPCS: 36415; 71010; 71045; 81001; 85014; 85018; 86850; 93005; 94761; 96372; 96374; J0131; J0330; J2405; J2710; P9016

== ENCOUNTER → 2018-05-11 11:09 | Outpatient (CLI) | payer OTHER, SELFPAY ==
--- NOTE | 2018-05-11 11:12 | XR_ITS ---
XR abdomen min 2V HISTORY: Lower abdominal pain with nausea and vomiting ITS.REASON: N/V ORDERING PHYSICIAN: SINDY Riley PATIENT AGE: 32 years COMPARISON: None FINDINGS: Surgical clips are present in the right upper quadrant. There is a left ureteral stent present with the proximal aspect curled in the region of the pelvis and the distal aspect curled in the region of the urinary bladder. There is a surgical clip overlying the left aspect of the sacrum and one overlying the pelvis toward the right. No intestinal obstruction or free air. Bowel gas pattern is nonspecific. No acute bony anomalies. IMPRESSION: Nonspecific nonobstructive bowel gas pattern with left ureteral stent in place
== END ==
PROVIDERS: PCP Physician Assistant; Visit Provider Physician Assistant
DX: R11.2 Nausea with vomiting, unspecified (principal)
CPT/HCPCS: 74019

== ENCOUNTER → 2019-01-31 09:47 | Outpatient (CLI) | payer OTHER, SELFPAY ==
--- NOTE | 2019-01-31 09:59 | US_ITS ---
PROCEDURE: US THYROID CLINICAL INDICATION: FAMILY H/O MALIGNANT NEOPLASM TYROID GLAND Fatigue, borderline thyroid function test abnormalities COMPARISON: THY US thyroid from 01/12/2018 FINDINGS: Right lobe: 4.4 x 1.4 x 2 cm in. Homogeneous echogenicity without evidence of nodule Left lobe: 4.2 x 1.6 x 1.8 cm with homogeneous echogenicity. No discrete nodule. Isthmus: Unremarkable Additional findings: IMPRESSION: Enlarged thyroid gland. No discrete nodule with no significant change Dictated by: Vivek Mary MD 01/31/2019 20:19 Electronically signed by Vivek Mary MD in [place] 01/31/2019 20:19
== END ==
PROVIDERS: PCP Physician Assistant; Visit Provider Nurse Practitioner
DX: Z80.8 Family history of malignant neoplasm of other organs or systems (principal)
CPT/HCPCS: 76536

== ENCOUNTER → 2020-10-05 08:38 | Outpatient (CLI) | payer OTHER, SELFPAY ==
--- NOTE | 2020-10-05 08:45 | US_ITS ---
PROCEDURE: US ABDOMEN LIMITED CLINICAL INDICATION: ELEVATED LFTS COMPARISON: US RUQ US RUQ-(ABD LTD)1ORGAN/QUAD/FU from 02/29/2016 FINDINGS: PANCREAS: Unremarkable. No obvious mass or abnormal fluid collection. No ductal dilatation LIVER: Diffuse increased echogenicity of the liver with poor through transmission of sound consistent with hepatic steatosis. No focal liver lesion demonstrated. There is appropriate direction of blood flow within non dilated portal vein. RIGHT KIDNEY: Unremarkable. Normal size and echogenicity. No hydronephrosis GALLBLADDER: Prior cholecystectomy. Common bile duct is normal in diameter at 3 mm. IMPRESSION: Fatty appearing liver otherwise negative right upper quadrant ultrasound Dictated by: Vivek Mary MD 10/05/2020 09:42 Vivek Mary MD in [place] 10/05/2020 09:42
== END ==
PROVIDERS: PCP Physician Assistant; Visit Provider Nurse Practitioner
DX: R79.89 Other specified abnormal findings of blood chemistry (principal); R94.5 Abnormal results of liver function studies
CPT/HCPCS: 76705

== ENCOUNTER → 2020-11-19 12:23 | Outpatient (CLI) | payer OTHER, SELFPAY ==
[2020-11-19 12:26] LABS: MANUAL DIFFERENTIAL MANUAL DIFFERENTIAL (MANUAL DIFF)
[2020-11-19 12:58] LABS: Basophils # 0.1 K/mm3 (0-0.2); Basophils % 0.6 % (0.1-2.0); Eosinophils # 0.3 K/mm3 (0.0-0.4); Eosinophils % 2.9 % (0.1-12.0); Hematocrit 42.1 % (37.0-47.0); Hemoglobin 14.1 g/dL (12.2-16.2); Lymphocytes # 2.3 K/mm3 (0.7-4.5); Lymphocytes % 27.1 % (10-50); Mean Corpuscular HGB Conc 33.5 g/dL (31.8-35.4); Mean Corpuscular Hemoglobin 28.8 pg (27.0-31.2); Mean Corpuscular Volume 85.8 fl (81-99); Mean Platelet Volume 8.5 fl (7.4-10.4); Monocytes # 0.5 K/mm3 (0.1-1.0); Monocytes % 5.3 % (1.7-9.3); Neutrophils # 5.6 K/mm3 (1.8-7.8); Neutrophils % 64.2 % (37.0-80.0); Platelet Count 269 K/mm3 (142-424); Red Blood Count 4.91 M/mm3 (4.20-5.40); Red Cell Distribution Width 12.4 % (11.5-17.5); White Blood Count 8.7 K/mm3 (4.8-10.8)
[2020-11-19 13:53] LABS: Eosinophils % 2 % (0-3); Lymphocytes % 31 % (10-50); Monocytes % 7 % (2-9); Neutrophils % 60 % (42-76); Platelet Estimate Normal; RBC Morphology Normal; Total Cells Counted 100
[2020-11-21 12:25] LABS: Peripheral Smear Review Scanned Result
== END ==
PROVIDERS: Visit Provider Nurse Practitioner
DX: R79.89 Other specified abnormal findings of blood chemistry (principal)
CPT/HCPCS: 36415; 85007; 85014; 85018; 85048; 85049

== ENCOUNTER → 2021-01-06 09:15 | Outpatient (CLI) | payer OTHER, SELFPAY ==
[2021-01-06 09:20] LABS: MANUAL DIFFERENTIAL MANUAL DIFFERENTIAL (MANUAL DIFF)
[2021-01-06 09:51] LABS: Basophils # 0.1 K/mm3 (0-0.2); Basophils % 0.8 % (0.1-2.0); Eosinophils # 0.1 K/mm3 (0.0-0.4); Hematocrit 40.1 % (37.0-47.0); Hemoglobin 14.2 g/dL (12.2-16.2); Lymphocytes % 29.6 % (10-50); Mean Corpuscular HGB Conc 35.4 g/dL (31.8-35.4); Mean Corpuscular Hemoglobin 29.3 pg (27.0-31.2); Mean Corpuscular Volume 82.9 fl (81-99); Mean Platelet Volume 8.2 fl (7.4-10.4); Monocytes # 0.3 K/mm3 (0.1-1.0); Monocytes % 3.9 % (1.7-9.3); Neutrophils # 4.4 K/mm3 (1.8-7.8); Neutrophils % 63.7 % (37.0-80.0); Platelet Count 321 K/mm3 (142-424); Red Blood Count 4.84 M/mm3 (4.20-5.40); Red Cell Distribution Width 13.3 % (11.5-17.5); White Blood Count 6.9 K/mm3 (4.8-10.8)
[2021-01-06 12:38] LABS: Eosinophils % 1 % (0-3); Hypochromasia 1+; Lymphocytes % 34 % (10-50); Microcytosis 1+; Monocytes % 3 % (2-9); Neutrophils % 62 % (42-76); Platelet Estimate Normal; Total Cells Counted 100
[2021-01-08 09:17] LABS: Peripheral Smear Review Scanned Result
== END ==
PROVIDERS: Visit Provider Nurse Practitioner
DX: R79.89 Other specified abnormal findings of blood chemistry (principal)
CPT/HCPCS: 36415; 85007; 85014; 85018; 85048; 85049

== ENCOUNTER → 2021-02-15 10:15 | Outpatient (CLI) | payer OTHER, SELFPAY ==
--- NOTE | 2021-02-15 10:19 | XR_ITS ---
PROCEDURE: XR CHEST 2V CLINICAL HISTORY: COSTOCHONDRITIS COMPARISON: CR CXR CHEST(2 VIEWS-NOT PORTABLE) from 02/29/2016 CR CXR2V XR chest 2V from 01/12/2018 CR,CT CXR1VP XR chest portable from 04/10/2018 FINDINGS: The cardiomediastinal silhouette and pulmonary vascularity are within normal limits. The lungs are clear without infiltrates, suspicious nodules, or pleural effusions. No acute bony abnormalities. IMPRESSION: No acute findings. Dictated by: Vivek Mary MD 02/15/2021 11:51 Vivek Mary MD in OV 02/15/2021 11:51
== END ==
PROVIDERS: PCP Family Medicine; Visit Provider Nurse Practitioner
DX: M94.0 Chondrocostal junction syndrome [Tietze] (principal)
CPT/HCPCS: 71046

== ENCOUNTER → 2021-04-27 12:38 | Outpatient (CLI) | payer OTHER, SELFPAY ==
[2021-04-27 13:17] LABS: Basophils # 0.1 K/mm3 (0-0.2); Basophils % 1.3 % (0.1-2.0); Eosinophils # 0.2 K/mm3 (0.0-0.4); Eosinophils % 2.5 % (0.1-12.0); Hematocrit 39.1 % (37.0-47.0); Lymphocytes # 2.1 K/mm3 (0.7-4.5); Lymphocytes % 24.8 % (10-50); Mean Corpuscular HGB Conc 35.9 g/dL (31.8-35.4); Mean Corpuscular Hemoglobin 30.4 pg (27.0-31.2); Mean Corpuscular Volume 84.9 fl (81-99); Monocytes # 0.4 K/mm3 (0.1-1.0); Monocytes % 4.9 % (1.7-9.3); Neutrophils # 5.6 K/mm3 (1.8-7.8); Neutrophils % 66.5 % (37.0-80.0); Platelet Count 343 K/mm3 (142-424); White Blood Count 8.5 K/mm3 (4.8-10.8)
== END ==
PROVIDERS: PCP Nurse Practitioner; Visit Provider Nurse Practitioner
DX: Z20.822 Contact with and (suspected) exposure to COVID-19 (principal)
CPT/HCPCS: 36415; 85025; C9803; U0003; U0005

== ENCOUNTER → 2021-08-30 08:18 | Outpatient (CLI) | payer OTHER, SELFPAY ==
[2021-08-31 16:22] LABS: H. pylori Breath Test Negative (Negative)
== END ==
PROVIDERS: Visit Provider Nurse Practitioner
DX: R76.8 Other specified abnormal immunological findings in serum (principal)
CPT/HCPCS: 83013

== ENCOUNTER → 2021-09-01 10:08 | Outpatient (CLI) | payer OTHER, SELFPAY ==
--- NOTE | 2021-09-01 10:12 | CT_ITS ---
FINAL REPORT TECHNIQUE: After the administration of intravenous contrast, axial images were obtained through the abdomen and pelvis by computed tomography. The study was performed with techniques to keep radiation dose as low as reasonably achievable, (ALARA). Individual dose reduction techniques using automated exposure control or adjustment of mA and/or kV according to the patient's size were employed. CLINICAL HISTORY: N/V/D AND RLQ PAIN X 1 MONTH FINDINGS: Abdomen: The lung bases are clear. There is mild diffuse fatty infiltration of the liver. The gallbladder is absent. The spleen, pancreas, adrenals and kidneys appear unremarkable. The aorta is normal in caliber. There is no free fluid or adenopathy. Pelvis: The appendix is not identified. The urinary bladder is unremarkable. There is no free fluid or adenopathy. The uterus is not identified and presumed surgically absent. There is an ovoid cystic structure in the right adnexa measuring 3.8 x 3.1 cm well seen on image 90 of series 2. There is a moderate amount of stool throughout the colon. IMPRESSION: 3.8 x 3.1 cm right adnexal cyst which is probably physiologic. Mild diffuse fatty infiltration of the liver. Reviewed, Interpreted and Dictated by Jordan Figueroa MD Transcribed by Micheline Castillo Authenticated by Jordan Figueroa MD on 09/01/2021 01:36:50 PM [facility]
== END ==
LOC: RAD 10:09
PROVIDERS: PCP Nurse Practitioner; Visit Provider Nurse Practitioner
DX: R11.2 Nausea with vomiting, unspecified (principal); R19.7 Diarrhea, unspecified
CPT/HCPCS: 74177; Q9967

== ENCOUNTER 2021-09-25 17:57 | Emergency (ER) | payer OTHER, SELFPAY ==
[2021-09-25 18:13] VITALS: BP 127/69; PULSE 68; RESP 19; TEMP 37.1; O2SAT 99; BMI 28.8
--- NOTE | 2021-09-25 18:17 | HMH.EDUTC ---
[facility] Disposition Clinical Impression: Encounter for screening for COVID-19 Disposition: Home, Self-Care Condition on Discharge: Good Instructions: Preventing the Spread of Coronavirus Discharge Instructions Additional Instructions: Drink plenty of fluids. Take tylenol for pain or fever. Return if you begin to have difficulty breathing. Follow up with your regular doctor. GO TO THE ER FOR ANY WORSENING SYMPTOMS Referrals: Ernesto Saucedo MD [Primary Care Provider] - Time of Disposition: 18:18 Medical Decision Making - Medical Records Medical records reviewed: No: I reviewed the patient's medical records. - Rodolfo Inquiry Pt receiving controlled substance: No Vital Signs: 09/25/21 18:13 09/25/21 18:22 Temperature 98.8 F 98.8 F Temperature Source Oral Pulse Rate 68 Pulse Rate [Left] 68 Respiratory Rate 19 19 Blood Pressure 127/69 Blood Pressure [Right Arm] 127/69 Blood Pressure Mean [Right Arm] 88 02 Sat by Pulse Oximetry 99 Orders (Tests/Meds): ORDERS Category Date Time Status Covid-19 Nasal PCR ([facility]) Routine Lab 09/25/21 18:[address] [facility] HPI - General Stated complaint: covid test for surg 09/28 in [place] Time Seen by Provider: 09/25/21 18:17 Mode of Arrival: Ambulatory Source of Information: Patient Limitations: No Limitations Description of Symptoms (Recalled from Triage Doc. by RN): pt here for covid test for procedure HEENT Symptoms (Recalled from RN notes): No Resp Symptoms (Recalled from RN notes): No Skin Symptoms (Recalled from RN notes): No MS Symptoms (Recalled from RN notes): No Functional Status (Recalled from RN notes): wnl - History of Present Illness Provider Complaint: She has an EGD scheduled for 3 days from now and she needs a covid test before she can have it done. - Related Data Home Medications Medication Instructions Recorded Confirmed No Known Home Medications 03/12/18 04/10/18 Allergies Allergy/AdvReac Type Severity Reaction Status Date / Time No Known Allergies Allergy Verified 04/09/18 08:21 - Worker's Comp Is this a Worker's Comp case?: No [facility] History - Hepatitis A Screen Attestation statement:: This patient has been screened for Hepatitis A risk factors. I have reviewed the patient's past medical history: Yes Medical History: Denies:: Anxiety, Asthma, Cancer, Depression, Diabetes Mellitus Type 1, Diabetes Mellitus Type 2, Hyperlipidemia, Hypertension, Internal Pacemaker, Lung Disease, Migraine, MRSA, Seizures Other Medical History: Denies: Blood Transfusion Reaction Other Surgeries: Yes: Cholecystectomy, Hysterectomy-Total, Hysterectomy-Partial, Other. No: Pacemaker Amputation: No Fractures: No Comment: pt. had total abdominal hysterectomy/ bilateral salpingectomy (ovaries in situ) - Social History Smoking Status: Never smoker Alcohol Intake: never Alcohol Intake Frequency:: holidays/special occasions only Substance Use Type: denies use Occupational Status: unemployed Housing: house Household Members: family, children - Psychiatric History Pschychiatric History:: Denies:: Anxiety, Depression Family Hx:: Cancer, Diabetes, Thyroid Disorder ROS Obtained: Yes All systems reviewed & no additional complaints - Constitutional Constitutional: Reports system reviewed and no additional complaints, except as docu - Eyes Eyes: Reports system reviewed and no additional complaints, except as docu - ENT Ears, Nose, Mouth, and Throat: Reports system reviewed and no additional complaints, except as docu - Cardiovascular Cardiovascular: Reports system reviewed and no additional complaints, except as docu - Respiratory Respiratory: Reports system reviewed and no additional complaints, except as docu - Gastrointestinal Gastrointestingal: Reports: system reviewed and no additional complaints, except as docu Physical Exam - General General appearance: alert, in no apparent distress - Hea
[2021-09-25 18:22] VITALS: BP 127/69; PULSE 68; RESP 19; TEMP 37.1
== END 2021-09-25 18:24 | disposition home or self-care (01) ==
PROVIDERS: Emergency Provider Nurse Practitioner Family; PCP Family Medicine
DX: Z20.822 Contact with and (suspected) exposure to COVID-19 (principal)
CPT/HCPCS: 99212; C9803; G0463; U0003; U0005

== ENCOUNTER → 2022-02-09 07:11 | Outpatient (CLI) | payer OTHER, SELFPAY | LOC: LAB.DROPOF 02-10 07:12 | PROVIDERS: PCP Nurse Practitioner; Visit Provider Nurse Practitioner | DX: R10.31 Right lower quadrant pain (principal) | CPT/HCPCS: 87086 ==

== ENCOUNTER → 2022-02-15 09:00 | Outpatient (CLI) | payer OTHER, SELFPAY ==
--- NOTE | 2022-02-15 09:00 | CT_ITS ---
FINAL REPORT TECHNIQUE: Axial images through the abdomen and pelvis was performed by computed tomography after the administration of IV an oral contrast. This study was performed with techniques to keep radiation doses as low as reasonably achievable (ALARA). Individualized dose reduction techniques using automated exposure control or adjustment of mA and/or kV according to the patient's size were employed. CLINICAL HISTORY: RLQ pain COMPARISON: 09/01/2021 FINDINGS: Abdomen: Lung bases are clear. There is fatty infiltration of the liver. The patient is status post cholecystectomy. The spleen, pancreas and adrenal glands are unremarkable. Kidneys show no mass or obstruction. No bowel obstruction or fluid collection is seen. There is mild fecal impaction. Pelvis: The appendix is unremarkable. There is an on the large cyst in the right ovary measuring 2.5 x 1.9 cm, previously measured 3.9 x 3.0 cm. There is trace free fluid. The patient is status post hysterectomy. The bladder is unremarkable. Pelvic bowel loops are unremarkable. No adenopathy is seen. IMPRESSION: No evidence of appendicitis. Enlarged benign-appearing right ovarian cyst, improved since previous. Fatty changes of liver. Reviewed, Interpreted and Dictated by Indio Lamas MD Transcribed by Kathia Franco Authenticated and [facility]
--- NOTE | 2022-02-15 09:33 | PC.NURSE ---
called to CT to initiate IV for CT scan. 20G in the left AC started. saline locked.
== END ==
LOC: RAD 09:00
PROVIDERS: PCP Nurse Practitioner; Visit Provider Nurse Practitioner
DX: R10.31 Right lower quadrant pain (principal)
CPT/HCPCS: 74177; Q9967

== ENCOUNTER 2022-02-15 09:48 | Emergency (ER) | payer OTHER, SELFPAY ==
[2022-02-15 09:48] VITALS: BP 121/84; PULSE 77; RESP 20; TEMP 36.6; O2SAT 98; BMI 29.2
--- NOTE | 2022-02-15 10:09 | HMH.EDALLER ---
Discharge Plan Disposition Patient Disposition: Home, Self-Care Condition: Good Prescriptions Prescriptions: New methylprednisolone [Medrol] 4 mg tablet 4 mg PO DIRECTED Qty: 21 0RF Rx Instructions: Take as directed on package instructions No Action methylprednisolone 4 mg tablets,dose pack See Rx Instructions PO PER PKG DIR Qty: 21 0RF Rx Instructions: PO PER PKG DIR diclofenac sodium 75 mg tablet,delayed release (DR/EC) 75 mg PO BID Qty: 60 0RF Referrals Follow up/Referrals: Provider,Referral, [Referring] - See instructions Clinical Impressions Clinical Impression: Allergic reaction Instructions Patient Instructions: DI for Adverse Drug Reaction -- Allergic Discharge ED Provider: Jonnathan Solorio Allergic React/Insect Bite HPI General Chief complaint: Allergic Reaction Stated complaint: allergic reaction Time Seen by Provider: 02/15/22 10:10 Mode of Arrival - ED Triage: Ambulatory Source of Information: Patient Limitations: No Limitations History of Present Illness HPI narrative: This is a 36-year-old female presented to the emergency department with possible allergic reaction. Patient states that she was getting a CT scan with contrast earlier when she started getting very itchy. She was feeling flushed. She felt like her throat was scratchy. Patient states she has had scans with contrast before in the past without any issues. Patient states that her symptoms are improving at this time. She denies any headache or change in vision. No focal weakness. Fevers or chills. No abdominal pain or vomiting. No diarrhea. No chest pain or shortness of breath. Allergies Allergy/AdvReac Type Severity Reaction Status Date / Time No Known Allergies Allergy Verified 02/09/22 09:11 Related Data Previous Rx's Medication Instructions Recorded diclofenac sodium 75 mg 75 mg PO BID #60 tabs 02/09/22 tablet,delayed release methylprednisolone 4 mg tablets in See Rx Instructions PO PER PKG DIR 02/09/22 a dose pack #21 tabs methylprednisolone 4 mg tablet 4 mg PO DIRECTED #21 tabs 02/15/22 (Medrol) [facility] Medical History Bulky or enlarged uterus Heavy menstrual bleeding Ovarian cyst Severe dysmenorrhea Surgical History H/O hysterectomy for benign disease Family History Other Cancer Diabetes Heart attack Social History Smoking Status: Never smoker alcohol intake: never substance use type: denies use current occupational status: unemployed Travel in the last 8 weeks: None household members: family and children housing: house current occupational exposures/hazards: No caffeine: Yes ROS Obtained: Yes All systems reviewed & no additional complaints except as documented Constitutional Constitutional: Denies chills, Denies fever(s) and Denies headache(s) ENT Ears, Nose, Mouth, and Throat: Denies headache(s) and Reports sore throat Cardiovascular Cardiovascular: Denies chest pain and Denies dyspnea Respiratory Respiratory: Denies dyspnea Gastrointestinal Gastrointestingal: Denies vomiting Musculoskeletal Musculoskeletal: Denies arthralgias Integumentary/Breasts Skin/Breast: Denies rash Neurologic Neurologic: Denies headache(s) Physical Exam General General appearance: alert and in no apparent distress Eye Eye exam: Present normal appearance, PERRL and EOMI ENT ENT exam: Present normal exam and normal oropharynx Neck Neck exam: Present normal inspection and full ROM Respiratory Respiratory exam: Present normal lung sounds bilaterally; Absent respiratory distress Cardiovascular Cardiovascular exam: Present regular rate and normal rhythm Abdominal Exam Abdominal exam: Present soft; Absent distention, ten
--- NOTE | 2022-02-15 10:23 | PC.NURSE ---
pt states feeling improved after meds
[2022-02-15 10:30] VITALS: BP 145/96; PULSE 70; RESP 16; O2SAT 100
[2022-02-15 11:00] VITALS: BP 136/84; PULSE 67; RESP 16; O2SAT 98
--- NOTE | 2022-02-15 11:01 | PC.NURSE ---
arrived to ed. at the bedside with pt.
--- NOTE | 2022-02-15 11:09 | PC.NURSE ---
family at bedside. pt up to bathroom ambulatory with steady gait
[2022-02-15 11:19] VITALS: BP 142/74; PULSE 78; RESP 16; TEMP 36.9; O2SAT 98
== END 2022-02-15 11:21 | disposition home or self-care (01) ==
PROVIDERS: Emergency Provider Emergency Medicine; PCP Nurse Practitioner
DX: T78.40XA Allergy, unspecified, initial encounter (principal)
CPT/HCPCS: 96374; 96375; 99284; J2405

== ENCOUNTER → 2022-09-30 15:30 | Outpatient (CLI) | payer OTHER, SELFPAY | LOC: RT 15:31 | PROVIDERS: PCP Nurse Practitioner; Visit Provider Nurse Practitioner | DX: R00.2 Palpitations (principal) | CPT/HCPCS: 93225; 93226 ==

== ENCOUNTER → 2022-10-07 14:10 | Outpatient (CLI) | payer OTHER, SELFPAY | PROVIDERS: PCP Nurse Practitioner; Visit Provider Nurse Practitioner | DX: R00.2 Palpitations (principal); R60.0 Localized edema | CPT/HCPCS: 93306 ==

== ENCOUNTER → 2022-10-18 09:00 | Outpatient (CLI) | payer OTHER, SELFPAY ==
[2022-10-18 18:48] LABS: Basophils % 0.4 % (0.1-2.0); Eosinophils # 0.2 K/mm3 (0.0-0.4); Hemoglobin 13.7 g/dL (12.2-16.2); Lymphocytes # 1.8 K/mm3 (0.7-4.5); Lymphocytes % 23.9 % (10-50); Mean Corpuscular HGB Conc 32.7 g/dL (31.8-35.4); Mean Corpuscular Hemoglobin 29.6 pg (27.0-31.2); Mean Corpuscular Volume 90.6 fl (81-99); Mean Platelet Volume 10.7 fl (7.4-10.4); Monocytes # 0.4 K/mm3 (0.1-1.0); Neutrophils # 5.2 K/mm3 (1.8-7.8); Neutrophils % 68.7 % (37.0-80.0); Platelet Count 253 K/mm3 (142-424); Red Blood Count 4.63 M/mm3 (4.20-5.40); Red Cell Distribution Width 13.3 % (11.5-17.5); White Blood Count 7.6 K/mm3 (4.8-10.8)
[2022-10-18 18:51] LABS: Alanine Aminotransferase 62 U/L (12-78); Albumin/Globulin Ratio 1.6 (1.1-1.8); Alkaline Phosphatase 93 U/L (38-126); Anion Gap 12.9 mEq/L (5-15); Aspartate Amino Transferase 54 U/L (14-36); Bilirubin,Total 0.4 mg/dl (0.2-1.3); Blood Urea Nitrogen 13 mg/dl (7-17); Calcium 8.6 mg/dl (8.4-10.2); Carbon Dioxide 27 mmol/L (22.0-30.0); Chloride 102 mmol/L (98-107); Chol/HDL Ratio 3.8 (1-3.5); Cholesterol 189 mg/dl (140-200); Estimated Glomerular Filt Rate 140 ml/min (>60); GFR (African American) 169 ML/MIN (>60); Globulin 2.5 g/dL (1.3-3.2); Glucose 98 mg/dl (74-100); HDL Cholesterol 50 mg/dl (40-60); Potassium 3.9 mmoL/L (3.5-5.1); Sodium 138 mmol/L (136-145); Total Protein,Serum 6.5 g/dl (6.3-8.2); Triglycerides 249 mg/dl (30-150); VLDL Cholesterol 50 mg/dL (0-40)
[2022-10-18 19:02] LABS: Direct LDL Cholesterol 105.54 mg/dL (100-129)
[2022-10-18 19:09] LABS: 25-OH Vitamin D, Total 16.6 ng/mL (30-100)
[2022-10-18 19:21] LABS: Thyroid Stimulating Hormone 0.96 uIU/mL (0.465-4.68)
[2022-10-18 19:30] LABS: Hemoglobin A1C 5.1 % (4.0-6.0)
[2022-10-18 19:39] LABS: Vitamin B12 350 pg/mL (239-931)
== END ==
LOC: LAB.DROPOF 10-19 06:41
PROVIDERS: PCP Nurse Practitioner; Visit Provider Nurse Practitioner
DX: R00.2 Palpitations (principal); R60.0 Localized edema; Z13.1 Encounter for screening for diabetes mellitus; Z13.220 Encounter for screening for lipoid disorders; E55.9 Vitamin D deficiency, unspecified; Z79.899 Other long term (current) drug therapy
CPT/HCPCS: 80053; 80061; 82306; 82607; 83036; 84443; 85025

== ENCOUNTER → 2022-11-18 09:06 | Outpatient (CLI) | payer OTHER, SELFPAY ==
--- NOTE | 2022-11-18 09:18 | XR_ITS ---
FINAL REPORT CLINICAL HISTORY: costochondritis, BLE edema COMPARISON: 02/15/2021 FINDINGS: TWO VIEW CHEST The heart size is normal. The mediastinum is normal. The lungs are clear. There is no pneumothorax. IMPRESSION: No acute cardiopulmonary process. Reviewed, Interpreted and Dictated by Syd Singh III, MD Transcribed by Rudi Castillo Authenticated and [facility]
[2022-11-18 09:20] LABS: Basophils % 0.4 % (0.1-2.0); Eosinophils # 0.2 K/mm3 (0.0-0.4); Eosinophils % 2.7 % (0.1-12.0); Hematocrit 40.3 % (37.0-47.0); Hemoglobin 13.6 g/dL (12.2-16.2); Lymphocytes # 1.8 K/mm3 (0.7-4.5); Lymphocytes % 22.9 % (10-50); Mean Corpuscular HGB Conc 33.7 g/dL (31.8-35.4); Mean Corpuscular Hemoglobin 29.4 pg (27.0-31.2); Mean Corpuscular Volume 87.4 fl (81-99); Mean Platelet Volume 9.4 fl (7.4-10.4); Monocytes # 0.3 K/mm3 (0.1-1.0); Monocytes % 4.2 % (1.7-9.3); Neutrophils # 5.3 K/mm3 (1.8-7.8); Neutrophils % 69.8 % (37.0-80.0); Platelet Count 275 K/mm3 (142-424); Red Blood Count 4.61 M/mm3 (4.20-5.40); Red Cell Distribution Width 13.2 % (11.5-17.5); White Blood Count 7.7 K/mm3 (4.8-10.8)
[2022-11-18 10:20] LABS: Alanine Aminotransferase 52 U/L (12-78); Albumin Level 4.1 g/dl (3.5-5.0); Albumin/Globulin Ratio 1.6 (1.1-1.8); Alkaline Phosphatase 74 U/L (38-126); Anion Gap 14.3 mEq/L (5-15); Aspartate Amino Transferase 37 U/L (14-36); Bilirubin,Total 0.5 mg/dl (0.2-1.3); Blood Urea Nitrogen 15 mg/dl (7-17); Calcium 8.8 mg/dl (8.4-10.2); Carbon Dioxide 25 mmol/L (22.0-30.0); Chloride 103 mmol/L (98-107); Estimated Glomerular Filt Rate 113 ml/min (>60); GFR (African American) 137 ML/MIN (>60); Globulin 2.6 g/dL (1.3-3.2); Glucose 98 mg/dl (74-100); Potassium 4.3 mmoL/L (3.5-5.1); Sodium 138 mmol/L (136-145); Total Protein,Serum 6.7 g/dl (6.3-8.2)
[2022-11-18 10:30] LABS: NT Pro Brain Natriuretic Pep. 20.5 pg/mL (0-125)
[2022-11-18 10:32] LABS: Troponin I < 0.01 ng/ml (0.00-0.034)
[2022-11-18 10:34] LABS: Free T4 (Free Thyroxine) 0.91 ng/dl (0.78-2.19)
[2022-11-18 10:49] LABS: Thyroid Stimulating Hormone 0.92 uIU/mL (0.465-4.68)
== END ==
LOC: LAB 09:06
PROVIDERS: PCP Nurse Practitioner; Visit Provider Nurse Practitioner
DX: R60.0 Localized edema (principal); M94.0 Chondrocostal junction syndrome [Tietze]; R63.5 Abnormal weight gain; R06.09 Other forms of dyspnea
CPT/HCPCS: 71046; 80053; 83880; 84439; 84443; 84484; 85025

== ENCOUNTER → 2023-01-02 16:40 | Outpatient (CLI) | payer SELFPAY ==
[2023-01-02 19:08] LABS: Basophils % 0.3 % (0.1-2.0); Eosinophils # 0.2 K/mm3 (0.0-0.4); Eosinophils % 2.5 % (0.1-12.0); Hematocrit 42.8 % (37.0-47.0); Hemoglobin 14.7 g/dL (12.2-16.2); Lymphocytes # 2.3 K/mm3 (0.7-4.5); Lymphocytes % 29.2 % (10-50); Mean Corpuscular HGB Conc 34.3 g/dL (31.8-35.4); Mean Corpuscular Hemoglobin 30.5 pg (27.0-31.2); Mean Corpuscular Volume 89.1 fl (81-99); Mean Platelet Volume 9.7 fl (7.4-10.4); Monocytes # 0.3 K/mm3 (0.1-1.0); Monocytes % 4.4 % (1.7-9.3); Neutrophils % 63.6 % (37.0-80.0); Platelet Count 281 K/mm3 (142-424); Red Cell Distribution Width 12.7 % (11.5-17.5); White Blood Count 7.8 K/mm3 (4.8-10.8)
[2023-01-02 19:15] LABS: Alanine Aminotransferase 84 U/L (12-78); Albumin Level 4.5 g/dl (3.5-5.0); Albumin/Globulin Ratio 1.4 (1.1-1.8); Alkaline Phosphatase 78 U/L (38-126); Anion Gap 15.7 mEq/L (5-15); Aspartate Amino Transferase 66 U/L (14-36); Bilirubin,Total 0.4 mg/dl (0.2-1.3); Blood Urea Nitrogen 14 mg/dl (7-17); Calcium 9.4 mg/dl (8.4-10.2); Carbon Dioxide 23 mmol/L (22.0-30.0); Chloride 106 mmol/L (98-107); Estimated Glomerular Filt Rate 113 ml/min (>60); GFR (African American) 137 ML/MIN (>60); Globulin 3.3 g/dL (1.3-3.2); Glucose 97 mg/dl (74-100); Potassium 3.7 mmoL/L (3.5-5.1); Sodium 141 mmol/L (136-145); Total Protein,Serum 7.8 g/dl (6.3-8.2)
[2023-01-02 19:33] LABS: 25-OH Vitamin D, Total 32.2 ng/mL (30-100); Free Thyroxine Index 2.8 ug/dL (5.93-13.13); T4 (Thyroxine) 9.6 ug/dl (5.53-11.0); Triiodothryronine (T3) Uptake 29 % (23.5-40.5)
[2023-01-02 19:37] LABS: Hemoglobin A1C 5.2 % (4.0-6.0)
[2023-01-02 20:43] LABS: Thyroid Stimulating Hormone 1.13 uIU/mL (0.465-4.68)
[2023-01-02 20:44] LABS: Thyroid Stimulating Hormone 1.13 uIU/mL (0.465-4.68)
[2023-01-02 21:02] LABS: Vitamin B12 486 pg/mL (239-931)
== END ==
PROVIDERS: PCP Nurse Practitioner; Visit Provider Nurse Practitioner
DX: R53.83 Other fatigue (principal); Z79.899 Other long term (current) drug therapy
CPT/HCPCS: 80053; 82306; 82607; 83036; 84436; 84443; 84479; 85025

== ENCOUNTER 2023-01-14 11:33 | Emergency (ER) | payer OTHER, SELFPAY ==
[2023-01-14] VITALS (7 sets, daily range): BP systolic 109–147; BP diastolic 57–92; PULSE 63–77; RESP 17–18; TEMP 36.8–37; O2SAT 96–99; BMI 32.1
[2023-01-14 11:46] LABS: Coronavirus 19, PCR Not Detected (NotDetected); Influenza A, PCR Not Detected (NotDetected); Influenza B, PCR Not Detected (NotDetected)
--- NOTE | 2023-01-14 12:19 | HMH.EDGENADL ---
Discharge Plan Disposition Patient Disposition: Home, Self-Care Prescriptions Prescriptions: New promethazine-DM 6.25-15 mg/5 mL syrup 5 ml PO Q6H PRN (Reason: cough) 7 Days Qty: 118 0RF ondansetron 4 mg tablet,disintegrating 4 mg PO Q6H PRN (Reason: nausea and vomiting) 5 Days Qty: 20 0RF No Action cefdinir 300 mg capsule 300 mg PO BID Qty: 20 0RF ciprofloxacin-dexamethasone 0.3-0.1 % drops,suspension 4 drp otic (ear) BID 7 Days Qty: 7.5 0RF hydrochlorothiazide 12.5 mg tablet 12.5 mg PO DAILY Qty: 15 2RF cholecalciferol (vitamin D3) 1,250 mcg (50,000 unit) capsule 1,250 mcg PO WEEKLY Qty: 8 0RF Referrals Follow up/Referrals: Charley Chanel APRN [Primary Care Provider] - See instructions Activity Restrictions/Add. Instructions Additional Instructions/Restrictions: Follow-up with primary care doctor as needed. Return to the emergency department if your symptoms worsen. Clinical Impressions Clinical Impression: Acute viral syndrome, Elevated transaminase level Discharge ED Provider: Tommy Miguel General Adult HPI General Chief complaint: Upper Respiratory Infection Stated complaint: vomiting, SOA, BLANTON,, RT leg feels numb Time Seen by Provider: 01/14/23 11:58 Mode of Arrival: Ambulatory Source of Information: Patient Limitations: No Limitations Description of Symptoms (Recalled from ER Triage Doc. by RN): Pt reports body aches, fevers, nasal and chest congestion with nonn-productive cough since Monday of this week. Reports has had vomitting x4 episodes today. Pt also reports R hip to knee area has been having intermittent numbness x4 days. States was recently treated for ear infection approx 1.5-2 weeks ago, finished antibiotics for this. History of Present Illness HPI narrative: 37-year-old female here with multiple complaints. She states she has had headache cough nasal congestion fevers since Monday this week. She had numerous episodes of nausea and vomiting which have been nonbloody nonbilious. Her primary reason for coming today is because she has had increasing nausea and vomiting has been able to keep anything down at home. She states she was recently treated for an ear infection as well but her ear symptoms have since resolved. Tmax at home was been 101. Related Data Previous Rx's Medication Instructions Recorded cholecalciferol (vitamin D3) 1,250 1,250 mcg PO WEEKLY #8 caps 10/19/22 mcg (50,000 unit) capsule cefdinir 300 mg capsule 300 mg PO BID #20 caps 01/02/23 ciprofloxacin 0.3 %-dexamethasone 4 drp otic (ear) BID 7 days #7.5 mL 01/02/23 0.1 % ear drops,suspension hydrochlorothiazide 12.5 mg tablet 12.5 mg PO DAILY #15 tabs 01/02/23 ondansetron 4 mg disintegrating 4 mg PO Q6H PRN nausea and 01/14/23 tablet vomiting 5 days #20 tabs promethazine-DM 6.25 mg-15 mg/5 mL 5 ml PO Q6H PRN cough 7 days #118 01/14/23 oral syrup mL Allergies Allergy/AdvReac Type Severity Reaction Status Date / Time No Known Allergies Allergy Verified 01/02/23 15:33 [facility] Disclaimer: The information contained in this section may have been updated after the patient was seen, as this information can be updated by other users. 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
[2023-01-14 12:32] LABS: Basophils # 0.1 K/mm3 (0-0.2); Basophils % 0.6 % (0.1-2.0); Eosinophils # 0.3 K/mm3 (0.0-0.4); Eosinophils % 3.8 % (0.1-12.0); Lymphocytes # 2.1 K/mm3 (0.7-4.5); Lymphocytes % 24.2 % (10-50); Mean Corpuscular HGB Conc 34.1 g/dL (31.8-35.4); Mean Corpuscular Hemoglobin 29.6 pg (27.0-31.2); Mean Corpuscular Volume 86.9 fl (81-99); Mean Platelet Volume 8.8 fl (7.4-10.4); Monocytes # 0.4 K/mm3 (0.1-1.0); Monocytes % 4.3 % (1.7-9.3); Neutrophils # 5.9 K/mm3 (1.8-7.8); Neutrophils % 67.2 % (37.0-80.0); Platelet Count 308 K/mm3 (142-424); Red Blood Count 4.72 M/mm3 (4.20-5.40); White Blood Count 8.8 K/mm3 (4.8-10.8)
[2023-01-14 12:39] LABS: Alanine Aminotransferase 125 U/L (12-78); Albumin Level 4.2 g/dl (3.5-5.0); Albumin/Globulin Ratio 1.2 (1.1-1.8); Alkaline Phosphatase 78 U/L (38-126); Anion Gap 12.6 mEq/L (5-15); Aspartate Amino Transferase 58 U/L (14-36); Bilirubin,Total 0.3 mg/dl (0.2-1.3); Blood Urea Nitrogen 10 mg/dl (7-17); Calcium 8.8 mg/dl (8.4-10.2); Carbon Dioxide 26 mmol/L (22.0-30.0); Chloride 105 mmol/L (98-107); Creatine Kinase 57 U/L (30-135); Creatinine Clearance Estimated 174 mL/min (50-200); Estimated Glomerular Filt Rate 113 ml/min (>60); GFR (African American) 137 ML/MIN (>60); Globulin 3.6 g/dL (1.3-3.2); Glucose 85 mg/dl (74-100); Potassium 3.6 mmoL/L (3.5-5.1); Sodium 140 mmol/L (136-145); Total Protein,Serum 7.8 g/dl (6.3-8.2)
--- NOTE | 2023-01-14 14:03 | PC.NURSE ---
helped pt stand and gain her balance. stated she felt better nothin needed at this time, at bs
[2023-01-17 05:52] LABS: HBsAg Screen Negative (Negative); HCV Ab Non Reactive (Non Reactive); Hep A Ab, IGM Negative (Negative); Hep B Core Ab, IgM Negative (Negative)
== END 2023-01-14 14:40 | disposition home or self-care (01) ==
PROVIDERS: Emergency Provider Student in an Organized Health Care Education/Training Program; PCP Nurse Practitioner
DX: R51.9 Headache, unspecified (principal); R50.9 Fever, unspecified; R05.9 Cough, unspecified; R74.01 Elevation of levels of liver transaminase levels; B34.9 Viral infection, unspecified
CPT/HCPCS: 80053; 80074; 82550; 85025; 87636; 96361; 96374; 96375; 99285; J0131; J2405

== ENCOUNTER → 2023-01-16 23:25 | Outpatient (CLI) | payer OTHER, SELFPAY ==
[2023-01-16 18:53] LABS: Adenovirus,PCR Not Detected (NotDetected); Bordetella Pertussis Not Detected (NotDetected); Chlamydophila Pneumoniae, PCR Not Detected (NotDetected); Coronavirus 19, PCR Not Detected (NotDetected); Coronavirus 229E Not Detected (NotDetected); Coronavirus NL63 Not Detected (NotDetected); Coronavirus OC43 Not Detected (NotDetected); Coronovirus HKU1,PCR Not Detected (NotDetected); Human Metapneumovirus Not Detected (NotDetected); Influenza A, PCR Not Detected (NotDetected); Influenza AH1, 2009 Not Detected (NotDetected); Influenza AH1, PCR Not Detected (NotDetected); Influenza AH3,PCR Not Detected (NotDetected); Influenza B, PCR Not Detected (NotDetected); Mycoplasma Pneumoniae, PCR Not Detected (NotDetected); Parainfluenza 1, PCR Not Detected (NotDetected); Parainfluenza 2, PCR Not Detected (NotDetected); Parainfluenza 3, PCR Not Detected (NotDetected); Parainfluenza 4, PCR Not Detected (NotDetected); Respiratory Syncytial Virus Not Detected (NotDetected); Rhinovirus/Enterovirus Not Detected (NotDetected)
[2023-01-16 19:02] LABS: Basophils % 0.3 % (0.1-2.0); Eosinophils # 0.3 K/mm3 (0.0-0.4); Eosinophils % 2.5 % (0.1-12.0); Hematocrit 41.3 % (37.0-47.0); Hemoglobin 13.9 g/dL (12.2-16.2); Lymphocytes # 2.3 K/mm3 (0.7-4.5); Lymphocytes % 23.9 % (10-50); Mean Corpuscular HGB Conc 33.7 g/dL (31.8-35.4); Mean Corpuscular Hemoglobin 30.2 pg (27.0-31.2); Mean Corpuscular Volume 89.7 fl (81-99); Monocytes # 0.5 K/mm3 (0.1-1.0); Monocytes % 4.6 % (1.7-9.3); Neutrophils # 6.7 K/mm3 (1.8-7.8); Neutrophils % 68.6 % (37.0-80.0); Platelet Count 298 K/mm3 (142-424); Red Cell Distribution Width 12.9 % (11.5-17.5); White Blood Count 9.8 K/mm3 (4.8-10.8)
== END ==
LOC: LAB.DROPOF 23:25
PROVIDERS: PCP Nurse Practitioner; Visit Provider Nurse Practitioner
DX: J06.9 Acute upper respiratory infection, unspecified (principal)
CPT/HCPCS: 85025; 87581; 87632; 87798

== ENCOUNTER → 2023-01-30 12:49 | Outpatient (CLI) | payer OTHER, SELFPAY ==
--- NOTE | 2023-01-30 12:53 | US_ITS ---
FINAL REPORT CLINICAL HISTORY: pelvic pain COMPARISON: None FINDINGS: Transvaginal sonographic images of the pelvis were obtained. Uterus and ovaries are absent. IMPRESSION: No acute findings. Reviewed, Interpreted and Dictated by Syd Singh III, MD Transcribed by Arabella Colmenares Authenticated and [facility]
--- NOTE | 2023-01-30 12:53 | MR_ITS ---
FINAL REPORT CLINICAL HISTORY: loss of balance, nystagmus. HEADACHE, DIZZINESS, BLURRED VISION. SYMPTOMS [id number]. NO INJURY OR TRAUMA COMPARISON: None FINDINGS: Multiplanar MR imaging of the brain was performed without and with contrast. There is no evidence of intracranial hemorrhage or mass. No abnormal extra-axial fluid collection is seen. The ventricular size is within normal limits. There is no evidence of shift of the midline structures. The posterior fossa and brainstem have an unremarkable appearance. No area of abnormal restricted diffusion is identified. No abnormal contrast enhancement is seen. Normal major vessel vascular flow voids are noted. IMPRESSION: No acute intracranial abnormality identified. Reviewed, Interpreted and Dictated by Syd Singh III, MD Transcribed by Arabella Colmenares Authenticated and [facility]
== END ==
PROVIDERS: PCP Nurse Practitioner; Visit Provider Nurse Practitioner
DX: R26.89 Other abnormalities of gait and mobility (principal); H55.09 Other forms of nystagmus; R10.2 Pelvic and perineal pain; Z80.8 Family history of malignant neoplasm of other organs or systems
CPT/HCPCS: 70553; 76830; A9576

== ENCOUNTER 2023-01-30 15:07 | Observation (INO) | payer OTHER, SELFPAY ==
[2023-01-30] VITALS (15 sets, daily range): BP systolic 94–155; BP diastolic 44–86; PULSE 75–99; RESP 9–23; TEMP 36.8–37.2; O2SAT 96–100; BMI 26.6; BMI 25.0; BMI 30.6
--- NOTE | 2023-01-30 15:14 | ECG_ITS ---
APPROVED REPORT Exam: Resting ECG HR:113 bpm ECG Measurements Heart Rate 113 AXES HI 142 P 72 QRSd 88 QRS 78 QT 316 T -11 QTc 383 Conclusion SINUS TACHYCARDIA MARKED ST ELEVATION, CONSIDER LATERAL INJURY [MARKED ST ELEVATION W/O NORMALLY INFLECTED T-WAVE IN I/aVL/V5/V6] ACUTE NM INTERPRETATION BASED ON A DEFAULT AGE OF 40 YEARS UNCONFIRMED REPORT Electronically signed by : Jaguar Carbajal MD 01/31/2023 17:13:45
--- NOTE | 2023-01-30 15:16 | ECG_ITS ---
APPROVED REPORT Exam: Resting ECG HR:106 bpm ECG Measurements Heart Rate 106 AXES NM 145 P 73 QRSd 94 QRS 79 QT 345 T -22 QTc 407 Conclusion SINUS TACHYCARDIA MARKED ST ELEVATION, CONSIDER LATERAL INJURY [MARKED ST ELEVATION W/O NORMALLY INFLECTED T-WAVE IN I/aVL/V5/V6] ACUTE DE INTERPRETATION BASED ON A DEFAULT AGE OF 40 YEARS UNCONFIRMED REPORT Electronically signed by : Jaguar Carbajal MD 01/31/2023 17:13:38
--- NOTE | 2023-01-30 15:19 | XR_ITS ---
FINAL REPORT CLINICAL HISTORY: CP, stemi COMPARISON: None FINDINGS: The heart size is normal. The mediastinum is normal. There is no focal infiltrate or edema. There are no pleural effusions. There is no pneumothorax. There is no osseous abnormality. IMPRESSION: No acute cardiopulmonary process Reviewed, Interpreted and Dictated by Syd Singh III, MD Transcribed by Shivani Camara Authenticated and . [facility]
[2023-01-30 15:32] LABS: Chloride 106 mmol/L (98-107); Sodium 139 mmol/L (136-145)
[2023-01-30 15:33] LABS: Potassium 3.8 mmoL/L (3.5-5.1)
[2023-01-30 15:35] LABS: Alanine Aminotransferase 60 U/L (12-78); Alkaline Phosphatase 84 U/L (38-126); Aspartate Amino Transferase 57 U/L (14-36); Basophils % 0.6 % (0.1-2.0); Bilirubin,Total 0.6 mg/dl (0.2-1.3); Blood Urea Nitrogen 9 mg/dl (7-17); Creatinine Clearance Estimated 144 mL/min (50-200); Eosinophils # 0.2 K/mm3 (0.0-0.4); Eosinophils % 3.1 % (0.1-12.0); Estimated Glomerular Filt Rate 113 ml/min (>60); GFR (African American) 137 ML/MIN (>60); Hematocrit 43.2 % (37.0-47.0); Hemoglobin 14.5 g/dL (12.2-16.2); Lymphocytes % 28.3 % (10-50); Mean Corpuscular HGB Conc 33.6 g/dL (31.8-35.4); Mean Corpuscular Hemoglobin 29.3 pg (27.0-31.2); Mean Corpuscular Volume 87.2 fl (81-99); Mean Platelet Volume 9.5 fl (7.4-10.4); Monocytes # 0.3 K/mm3 (0.1-1.0); Monocytes % 4.3 % (1.7-9.3); Neutrophils # 4.6 K/mm3 (1.8-7.8); Neutrophils % 63.7 % (37.0-80.0); Platelet Count 291 K/mm3 (142-424); Red Blood Count 4.95 M/mm3 (4.20-5.40); Red Cell Distribution Width 12.7 % (11.5-17.5); White Blood Count 7.2 K/mm3 (4.8-10.8)
[2023-01-30 15:36] LABS: Albumin Level 4.3 g/dl (3.5-5.0); Albumin/Globulin Ratio 1.2 (1.1-1.8); Anion Gap 12.8 mEq/L (5-15); Calcium 9.5 mg/dl (8.4-10.2); Carbon Dioxide 24 mmol/L (22.0-30.0); Globulin 3.5 g/dL (1.3-3.2); Glucose 88 mg/dl (74-100); Total Protein,Serum 7.8 g/dl (6.3-8.2)
[2023-01-30 15:53] LABS: T4 (Thyroxine) 11.4 ug/dl (5.53-11.0)
[2023-01-30 16:03] LABS: Troponin I < 0.01 ng/ml (0.00-0.034)
--- NOTE | 2023-01-30 16:03 | HMH.EDGENADL ---
Discharge Plan Disposition Patient Disposition: Admitted Chief Complaint: Allergic Reaction Prescriptions Prescriptions: No Action finasteride 1 mg tablet 1 mg PO DAILY Patient Comments: TAKE 1 TABLET BY MOUTH EVERY DAY azithromycin 250 mg tablet See Rx Instructions PO .COMPLEX Qty: 6 0RF Rx Instructions: For 250 mg dose pack: take 500 mg today (day 1), then 250 mg for 4 days (days 2-5) PO methylprednisolone 4 mg tablets,dose pack See Rx Instructions PO PER PKG DIR Qty: 21 0RF Rx Instructions: PO PER PKG DIR albuterol sulfate 90 mcg/actuation HFA aerosol inhaler 2 puff inhalation Q4-6H PRN (Reason: shortness of breath or wheezing) Qty: 8.5 0RF iufjpcqkrkkmsqf-daetcsdzc-NB [Bromfed DM] 2-30-10 mg/5 mL syrup 5 ml PO Q4-6H PRN (Reason: cold symptoms) Qty: 240 0RF hydrochlorothiazide 12.5 mg tablet 12.5 mg PO DAILY Qty: 15 2RF cholecalciferol (vitamin D3) 1,250 mcg (50,000 unit) capsule 1,250 mcg PO WEEKLY Qty: 8 0RF ondansetron 4 mg tablet,disintegrating 4 mg PO Q6H PRN (Reason: nausea and vomiting) 5 Days Qty: 20 0RF Referrals Follow up/Referrals: Provider,Referral, MD [Primary Care Provider] - See instructions Clinical Impressions Clinical Impression: Type 2 AMI (acute myocardial infarction) Anaphylaxis Qualifiers: Encounter type: initial encounter Qualified Code(s): T78.2XXA - Anaphylactic shock, unspecified, initial encounter Discharge ED Provider: Justo Ramos General Adult HPI General Chief complaint: Allergic Reaction Stated complaint: Reaction to contrast Time Seen by Provider: 01/30/23 15:19 Mode of Arrival: Wheelchair Source of Information: Patient Limitations: No Limitations Description of Symptoms (Recalled from ER Triage Doc. by RN): pt to ed from MRI c/o hives and throat tightness. pt states she has a known pre-existing allergy to CT contrast, but has tolerated MRI contrast in the past. pt reports having a reaction shortly after receiving MRI contrast today. History of Present Illness HPI narrative: 37-year-old female with history of iodine contrast allergy, unspecified heart problem presenting with allergic reaction. Patient has known allergy to iodine contrast, but was getting an MRI today with contrast. Started to have swelling in her throat, hives, difficulty breathing, and chest pressure. Was sent to the ED for this. On arrival, patient complaining of similar symptoms. Denies nausea or vomiting, wheezing, difficulty breathing, but states feels like there is something in my throat. Related Data Home Medications Medication Instructions Recorded Confirmed finasteride 1 mg tablet 1 mg PO DAILY 01/16/23 01/16/23 Previous Rx's Medication Instructions Recorded cholecalciferol (vitamin D3) 1,250 1,250 mcg PO WEEKLY #8 caps 10/19/22 mcg (50,000 unit) capsule hydrochlorothiazide 12.5 mg tablet 12.5 mg PO DAILY #15 tabs 01/02/23 ondansetron 4 mg disintegrating 4 mg PO Q6H PRN nausea and 01/14/23 tablet vomiting 5 days #20 tabs albuterol sulfate 90 mcg/actuation 2 puff inhalation Q4-6H PRN 01/16/23 aerosol inhaler shortness of breath or wheezing #8.5 grams azithromycin 250 mg tablet See Rx Instructions PO .COMPLEX #6 01/16/23 tabs dueoldywbkmgsjh-xamftjnjutjttsr-IH 5 ml PO Q4-6H PRN cold symptoms 01/16/23 2 mg-30 mg-10 mg/5 mL oral syrup #240 mL (Bromfed DM) methylprednisolone 4 mg tablets in See Rx Instructions PO PER PKG DIR 01/16/23 a dose pack #21 tabs Allergies Allergy/AdvReac Type Severity Reaction Status Date / Time Iodinated Contrast Media Allergy Mild Rash Verified 01/30/23 15:32 [facility] Disclaimer: The information contained in this section may have been updated after the patient was seen, as this information can be updated by other users. Medical History Abnormal Holter exam Bilateral lower extremity edema Bulky or enlarged uterus
[2023-01-30 16:07] LABS: Thyroid Stimulating Hormone 0.58 uIU/mL (0.465-4.68)
[2023-01-30 16:20] LABS: Activated Partial Thrombo Time 28.2 seconds (22.8-30.6)
[2023-01-30 18:26] LABS: Troponin I 0.33 ng/ml (0.00-0.034)
--- NOTE | 2023-01-30 18:26 | PC.NURSE ---
critical trop 0.33, MD aware
--- NOTE | 2023-01-30 18:44 | ECG_ITS ---
APPROVED REPORT Exam: Resting ECG HR:83 bpm ECG Measurements Heart Rate 83 AXES NM 162 P 72 QRSd 78 QRS 75 QT 370 T 105 QTc 410 Conclusion SINUS RHYTHM NORMAL ECG INTERPRETATION BASED ON A DEFAULT AGE OF 40 YEARS UNCONFIRMED REPORT Electronically signed by : Jaguar Carbajal MD 01/31/2023 17:13:21
--- NOTE | 2023-01-30 19:15 | PC.NURSE ---
hives reported per dayshift when pt arrived, skin clear, no evidence of rash noted.
--- NOTE | 2023-01-30 19:59 | PC.NURSE ---
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
--- NOTE | 2023-01-30 20:00 | PC.NURSE ---
Pt laying in bed, hospitalist at bedside, pt denies CP. Stil states feels like something in her throat a little, no hives noted. WCTM, awaiting bed placement on floor
--- NOTE | 2023-01-30 20:36 | PC.NURSE ---
pt arrived to floor at this time
--- NOTE | 2023-01-30 20:49 | EXP.HP ---
History of Present Illness *Admission Date: 01/30/23 *Reason for visit:: anaphylaxis *History of present illness: This is a 37-year-old female with no significant medical history other than palpitation, polycystic ovaric disease and of iodine contrast allergy. Patient has known allergy to iodine contrast, but was getting an MRI today with contrast as part of the undergoing work up for dizziness. right after dye exposure patient started to refferred swelling in her throat, hives, difficulty breathing, and chest pressure. Was sent to the ED for this. On arrival, patient complaining of similar symptoms. Denies nausea or vomiting, wheezing, difficulty breathing, but states feels like there is something in my throat. Admitted for further management and treatment. [facility] Disclaimer: The information contained in this section may have been updated after the patient was seen, as this information can be updated by other users. 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 Ovarian cyst Palpitations Pelvic inflammatory disease (PID) Severe dysmenorrhea Urinary tract infection Surgical History (Updated 01/30/23 @ 20:57 by Pamela Restrepo RN) H/O hysterectomy for benign disease History of cholecystectomy Family History Other Cancer Diabetes Heart attack Social History (Updated 01/30/23 @ 20:57 by Pamela Restrepo RN) Smoking Status: Never smoker alcohol intake: never substance use type: denies use current occupational status: unemployed Travel in the last 8 weeks: None household members: family and children housing: house current occupational exposures/hazards: No caffeine: Yes Review of Systems Review of Systems Review of systems:: pertinent systems reviewed and negative unless documented below Meds Home Medications and Allergies Home Medications Medication Instructions Recorded Confirmed Type ondansetron 4 mg disintegrating 4 mg PO Q6H PRN nausea and 01/14/23 01/30/23 Rx tablet vomiting 5 days #20 tabs cholecalciferol (vitamin D3) 1,250 1,250 mcg PO WEEKLY Supplement 01/30/23 01/30/23 History mcg (50,000 unit) capsule hydrochlorothiazide 12.5 mg tablet 12.5 mg PO DAILY Fluid 01/30/23 01/30/23 History albuterol sulfate 90 mcg/actuation 2 puff inhalation Q4-6H PRN 01/31/23 01/31/23 History aerosol inhaler Wheezing or Shortness of Breath cyanocobalamin (vitamin B-12) 1,000 mcg PO DAILY Supplement 01/31/23 01/31/23 History 1,000 mcg tablet diphenhydramine HCl 25 mg capsule 25 mg PO Q8H PRN sleep 3 days #9 01/31/23 Rx (Benadryl) caps prednisone 20 mg tablet 40 mg PO DAILY 1 day #2 tabs 01/31/23 Rx New Prescriptions to Start Prescriptions: diphenhydramine HCl [Benadryl] Jerome Julien prednisone Jerome Julien Allergies Allergy/AdvReac Type Severity Reaction Status Date / Time Iodinated Contrast Media Allergy Mild Rash Verified 01/30/23 15:32 Exam Data for Last 24 hours Vital signs and Labs for Last 24 Hours: Temp Pulse Resp BP Pulse Ox O2 Del Method 98.6 F 95 H 16 107/67 L 98 Room Air 01/30/23 20:27 01/30/23 20:27 01/30/23 20:27 01/30/23 20:27 01/30/23 19:01 01/30/23 20:27 Laboratory Results - last 24 hr 01/30/23 15:13: WBC 7.2, RBC 4.95, Hgb 14.5, Hct 43.2, MCV 87.2, MCH 29.3, MCHC 33.6, RDW 12.7, Plt Count 291, MPV 9.5, Neut % (Auto) 63.7, Lymph % (Auto) 28.3, [place] % (Auto) 4.3, Eos % (Auto) 3.1, Baso % (Auto) 0.6, Neut # (Auto) 4
[2023-01-30 22:01] LABS: Troponin I 0.35 ng/ml (0.00-0.034)
--- NOTE | 2023-01-30 22:19 | ECG_ITS ---
APPROVED REPORT Exam: Resting ECG HR:80 bpm ECG Measurements Heart Rate 80 AXES WY 168 P 57 QRSd 100 QRS 57 QT 391 T 118 QTc 427 Conclusion SINUS RHYTHM ABNORMAL QRS-T ANGLE [QRS-T AXIS DIFFERENCE > 60] ABNORMAL ECG UNCONFIRMED REPORT Electronically signed by : Jaguar Carbajal MD 01/31/2023 17:13:00
[2023-01-31] VITALS: PULSE 80
[2023-01-31 00:56] VITALS: BP 102/64; PULSE 78
[2023-01-31 04:00] VITALS: BP 99/51; PULSE 64; RESP 16; TEMP 36.7; O2SAT 97; BMI 30.6
[2023-01-31 05:00] VITALS: PULSE 60
--- NOTE | 2023-01-31 06:00 | PC.NURSE ---
pt admitted for seril troponins. reports pain in middle of chest 4/10 pressure. hospitalist made aware.repeat trop 0.36. new order for ekg. administered 3 ntg without relief. cards consult in am. pt having multiple c/o. reported heaviness in legs bilaterally below the knee and right sided abd pain which she said is not new for her. nsr on monitor, bp 90's/50's. ns@125ml/'hr infusing
[2023-01-31 06:48] LABS: Eosinophils % 0.1 % (0.1-12.0); Hematocrit 41.3 % (37.0-47.0); Hemoglobin 13.8 g/dL (12.2-16.2); Lymphocytes # 0.9 K/mm3 (0.7-4.5); Lymphocytes % 9.2 % (10-50); Mean Corpuscular HGB Conc 33.4 g/dL (31.8-35.4); Mean Corpuscular Hemoglobin 29.3 pg (27.0-31.2); Mean Corpuscular Volume 87.7 fl (81-99); Mean Platelet Volume 9.3 fl (7.4-10.4); Monocytes # 0.2 K/mm3 (0.1-1.0); Monocytes % 2.2 % (1.7-9.3); Neutrophils # 8.1 K/mm3 (1.8-7.8); Neutrophils % 88.5 % (37.0-80.0); Platelet Count 302 K/mm3 (142-424); Red Blood Count 4.71 M/mm3 (4.20-5.40); Red Cell Distribution Width 12.7 % (11.5-17.5); White Blood Count 9.2 K/mm3 (4.8-10.8)
[2023-01-31 06:55] LABS: MANUAL DIFFERENTIAL MANUAL DIFFERENTIAL (MANUAL DIFF)
[2023-01-31 07:08] LABS: Alanine Aminotransferase 91 U/L (12-78); Anion Gap 12.8 mEq/L (5-15); Aspartate Amino Transferase 82 U/L (14-36); Bilirubin,Total 0.5 mg/dl (0.2-1.3); Blood Urea Nitrogen 7 mg/dl (7-17); Carbon Dioxide 22 mmol/L (22.0-30.0); Chloride 108 mmol/L (98-107); Creatinine Clearance Estimated 212 mL/min (50-200); Estimated Glomerular Filt Rate 140 ml/min (>60); GFR (African American) 169 ML/MIN (>60); Globulin 3.1 g/dL (1.3-3.2); Glucose 156 mg/dl (74-100); Magnesium 1.7 mg/dl (1.6-2.3); Phosphorous 3.4 mg/dl (2.5-4.5); Potassium 3.8 mmoL/L (3.5-5.1); Sodium 139 mmol/L (136-145); Total Protein,Serum 7.1 g/dl (6.3-8.2)
[2023-01-31 07:09] LABS: Albumin/Globulin Ratio 1.3 (1.1-1.8); Alkaline Phosphatase 62 U/L (38-126); Chol/HDL Ratio 5.5 (1-3.5); Cholesterol 214 mg/dl (140-200); HDL Cholesterol 39 mg/dl (40-60); Triglycerides 129 mg/dl (30-150); VLDL Cholesterol 26 mg/dL (0-40)
--- NOTE | 2023-01-31 07:11 | HMH.PHAINT1 ---
Pharmacy Intervention Comments: Medication history complete, medications verified with fill history. - Melody Ag, PharmD Candidate 2023
[2023-01-31 07:19] LABS: Direct LDL Cholesterol 130.07 mg/dL (100-129)
[2023-01-31 08:00] VITALS: BP 106/62; PULSE 66; RESP 16; TEMP 36.4; O2SAT 99
[2023-01-31 08:10] LABS: Lymphocytes % 10 % (10-50); Neutrophils % 87 % (42-76); Platelet Estimate Normal; RBC Morphology Normal; Total Cells Counted 100
[2023-01-31 08:11] LABS: Anisocytosis 1+
--- NOTE | 2023-01-31 10:37 | ECG_ITS ---
APPROVED REPORT Exam: Resting ECG HR:72 bpm ECG Measurements Heart Rate 72 AXES NM 179 P 55 QRSd 85 QRS 51 QT 445 T 127 QTc 469 Conclusion SINUS RHYTHM WITH SINUS ARRHYTHMIA ABNORMAL QRS-T ANGLE [QRS-T AXIS DIFFERENCE > 60] ABNORMAL ECG UNCONFIRMED REPORT Electronically signed by : Jaguar Carbajal MD 01/31/2023 17:11:36
--- NOTE | 2023-01-31 11:13 | EXP.CARD.CON ---
History of Present Illness History of Present Illness Consult date: 01/31/23 Requesting physician: Jerome Julien Chief complaint: Anaphylaxis, difficulty swallowing, itching throat History of present illness: 37-year-old female with no significant medical history other than palpitation, polycystic ovaric disease and of iodine contrast allergy. Patient has known allergy to iodine contrast, but was getting an MRI today with contrast as part of the undergoing work up for dizziness. right after dye exposure patient started to referred swelling in her throat, hives, difficulty breathing, and chest pressure. Was sent to the ED for this. On arrival, patient complaining of similar symptoms. Denies nausea or vomiting, wheezing, difficulty breathing, but states feels like there is something in my throat. Admitted for further management and treatment. Serial troponins were completed throughout the evening trending from 0.01-0.35. No EKG changes were observed. Patient denies chest pain or shortness of breath reports is feeling better this morning. Of note patient reports she had a stress test, echo and Holter monitor done at [facility] in September of this year and everything reported normal. [facility] Disclaimer: The information contained in this section may have been updated after the patient was seen, as this information can be updated by other users. 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 Ovarian cyst Palpitations Pelvic inflammatory disease (PID) Severe dysmenorrhea Urinary tract infection Surgical History (Updated 01/30/23 @ 20:57 by Pamela Restrepo RN) H/O hysterectomy for benign disease History of cholecystectomy Family History Other Cancer Diabetes Heart attack Social History (Updated 01/30/23 @ 20:57 by Pamela Restrepo RN) Smoking Status: Never smoker alcohol intake: never substance use type: denies use current occupational status: unemployed Travel in the last 8 weeks: None household members: family and children housing: house current occupational exposures/hazards: No caffeine: Yes Review of Systems Review of Systems Review of systems:: pertinent systems reviewed and negative unless documented below ENT Ears, Nose, Mouth, and Throat: Reports dizziness and Reports throat swelling Comments: Itching throat *Neurologic Neurologic: Reports dizziness Allergic/Immunologic Allergic/Immunologic: Reports throat swelling Exam Data for Last 24 hours Vital signs and Labs for Last 24 Hours: Temp Pulse Resp BP Pulse Ox O2 Del Method 97.5 F L 66 16 106/62 L 99 Room Air 01/31/23 08:00 01/31/23 08:00 01/31/23 08:00 01/31/23 08:00 01/31/23 08:00 01/31/23 09:00 Laboratory Results - last 24 hr 01/30/23 15:13: WBC 7.2, RBC 4.95, Hgb 14.5, Hct 43.2, MCV 87.2, MCH 29.3, MCHC 33.6, RDW 12.7, Plt Count 291, MPV 9.5, Neut % (Auto) 63.7, Lymph % (Auto) 28.3, [place] % (Auto) 4.3, Eos % (Auto) 3.1, Baso % (Auto) 0.6, Neut # (Auto) 4.6, Lymph # (Auto) 2.0, [place] # (Auto) 0.3, Eos # (Auto) 0.2, Baso # (Auto) 0.0, Sodium 139, Potassium 3.8, Chloride 106, Carbon Dioxide 24, Anion Gap 12.8, BUN 9, Creatinine 0.60, Estimated Creat Clear 144, Estimated GFR 113, Est GFR ( Amer) 137, Glucose 88, Calcium 9.5, Total Bilirubin 0.6, AST 57 H, ALT 60, Alkaline Phosphatase 84, Troponin I < 0.01, Total Protein 7.8, Albumin 4.3, Globulin 3.5 H, Albumin/Globulin Ratio 1.2, TSH 0.58, Thyroxine (T4) 11.4 H 01/30/23 15:48: APTT 28.2 01/30/23 17:52
[2023-01-31 12:00] VITALS: BP 114/68; PULSE 71; RESP 18; TEMP 36.3; O2SAT 96
--- NOTE | 2023-01-31 12:13 | EXP.DC.SUM ---
General Admission date:: 01/30/23 Discharge date: 01/31/23 HPI HPI HPI: This is a 37-year-old female with no significant medical history other than palpitation, polycystic ovaric disease and of iodine contrast allergy. Patient has known allergy to iodine contrast, but was getting an MRI today with contrast as part of the undergoing work up for dizziness. right after dye exposure patient started to refferred swelling in her throat, hives, difficulty breathing, and chest pressure. Was sent to the ED for this. On arrival, patient complaining of similar symptoms. Denies nausea or vomiting, wheezing, difficulty breathing, but states feels like there is something in my throat. Admitted for further management and treatment. Hospital Course Hospital Course Hospital Course: 37-year-old female with no significant medical history other than palpitation, polycystic ovaric disease and of iodine contrast allergy. Patient has known allergy to iodine contrast, but was getting an MRI today with contrast as part of the undergoing work up for dizziness. upon ER arrival patient showed anaphylactic symptoms, and started developing chest pressure with elevated ST segment. Patient started on Nitro continue infusion. IV benadryl and steroid given. CXR was obatined. serial troponin initiated cardiology consulted. After discussion with the ER provider and cardiology decision for admission was made. Remained stable overnight. Cardiology consulted and evaluated. Problems addressed as follows during admission: -Type 2 AMI secondary to anaphylaxis secondary to allergic reaction to contract during MRI: Patient admitted for observation overnight and medical management. Monitored with telemetry. Given nitro as needed sublingual as needed for pain. Treated with Solu-Medrol during admission. Transition to prednisone to complete 1 more day of steroids for anaphylaxis. Stable on room air during admission. Continue Benadryl as needed for scratchy throat or itching. Allergic reaction is resolved. Recommend avoiding contrast in the future and and noting contrast is anaphylactic allergy on her medical chart. -Elevated troponin. - Acute myocardial injury in the setting of anaphylaxis - Palpitations Serial troponins 0.01,0.33 and 0.35. Patient denies chest pain or shortness of breath. No acute ischemic changes noted. Echo, stress test, Holter monitor at [facility] cardiology in September this year Unremarkable. Stable to discharge home with follow-up with [facility] cardiology as needed. -Bilateral lower extremity edema: Patient on hydroclorothizide at home. Unclear use. Held during admission. Resume at discharge. Stable for discharge home. Follow-up with primary care in the coming weeks. Recommend further eval of patient's reported thyroid nodule with ENT for possible FNA. Referred to Dr. Marcus for further management. Spent 30 minutes in discharge counseling, documentation, chart review, discussion with consultants, and direct care with patient. Exam Data for Last 24 hours Vital signs and Labs for Last 24 Hours: Temp Pulse Resp BP Pulse Ox O2 Del Method 97.5 F L 66 16 106/62 L 99 Room Air 01/31/23 08:00 01/31/23 08:00 01/31/23 08:00 01/31/23 08:00 01/31/23 08:00 01/31/23 09:00 Laboratory Results - last 24 hr 01/30/23 15:13: WBC 7.2, RBC 4.95, Hgb 14.5, Hct 43.2, MCV 87.2, MCH 29.3, MCHC 33.6, RDW 12.7, Plt Count 291, MPV 9.5, Neut % (Auto) 63.7, Lymph % (Auto) 28.3, [place] % (Auto) 4.3, Eos % (Auto) 3.1, Baso % (Auto) 0.6, Neut # (Auto) 4.6, Lymph # (Auto) 2.0, [place] # (Auto) 0.3, Eos # (Auto) 0.2, Baso # (Auto) 0.0, Sodium 139, Potassium 3.8, Chloride 106, Carbon Dioxide 24, Anion Gap 12.8, BUN 9, Creatinine 0.60, Estimated Creat Clear 144, Estimated GFR 113, Est GFR ( Amer) 137, Glucose 88, Calcium 9.5, Total Bilirubin 0.6, AST 57 H, ALT 60, Alkaline Phosphatase 84, Troponin I < 0.01, Total Protein 7.8, Albumin 4.3, Globulin 3.5 H, Albumin/Globulin Ratio 1.
--- NOTE | 2023-02-02 13:34 | CARE MANAGER ---
Called and spoke with patient regarding recent discharge. Patient stated that her right leg is a little swollen today and she feels blah . I advised her to call and let her PCP know and see about being seen. No other complaints or concerns at this time.
== END 2023-01-31 13:25 | disposition home or self-care (01) ==
LOC: ER 18:55 → 2ND 21:34
PROVIDERS: Nurse Practitioner Family; Admitting Provider Internal Medicine Adolescent Medicine; Emergency Provider Emergency Medicine; Visit Provider Internal Medicine Adolescent Medicine
DX: T88.6XXA Anaphylactic reaction due to adverse effect of correct drug or medicament properly administered, initial encounter (principal); X58.XXXA Exposure to other specified factors, initial encounter; I21.A1 Myocardial infarction type 2; T50.8X5A Adverse effect of diagnostic agents, initial encounter; Y84.8 Other medical procedures as the cause of abnormal reaction of the patient, or of later complication, without mention of misadventure at the time of the procedure
CPT/HCPCS: 36415; 71045; 80053; 80061; 83735; 84100; 84436; 84443; 84484; 85007; 85025; 85730; 93005; 99291; G0378; J2405

== ENCOUNTER → 2023-02-08 01:10 | Outpatient (CLI) | payer OTHER, SELFPAY ==
[2023-02-08 19:11] LABS: Basophils # 0.1 K/mm3 (0-0.2); Basophils % 0.6 % (0.1-2.0); Eosinophils # 0.2 K/mm3 (0.0-0.4); Eosinophils % 2.2 % (0.1-12.0); Hematocrit 46.9 % (37.0-47.0); Hemoglobin 15.3 g/dL (12.2-16.2); Lymphocytes # 2.4 K/mm3 (0.7-4.5); Lymphocytes % 23.7 % (10-50); Mean Corpuscular HGB Conc 32.7 g/dL (31.8-35.4); Mean Corpuscular Hemoglobin 29.3 pg (27.0-31.2); Mean Corpuscular Volume 89.7 fl (81-99); Mean Platelet Volume 9.9 fl (7.4-10.4); Monocytes # 0.4 K/mm3 (0.1-1.0); Monocytes % 4.3 % (1.7-9.3); Neutrophils % 69.2 % (37.0-80.0); Platelet Count 302 K/mm3 (142-424); Red Blood Count 5.22 M/mm3 (4.20-5.40); White Blood Count 10.1 K/mm3 (4.8-10.8)
[2023-02-08 19:22] LABS: Alanine Aminotransferase 74 U/L (12-78); Albumin Level 4.7 g/dl (3.5-5.0); Albumin/Globulin Ratio 1.5 (1.1-1.8); Alkaline Phosphatase 94 U/L (38-126); Anion Gap 17.1 mEq/L (5-15); Aspartate Amino Transferase 56 U/L (14-36); Bilirubin,Total 0.6 mg/dl (0.2-1.3); Blood Urea Nitrogen 12 mg/dl (7-17); Calcium 9.5 mg/dl (8.4-10.2); Carbon Dioxide 29 mmol/L (22.0-30.0); Chloride 97 mmol/L (98-107); Estimated Glomerular Filt Rate 95 ml/min (>60); GFR (African American) 115 ML/MIN (>60); Globulin 3.1 g/dL (1.3-3.2); Glucose 103 mg/dl (74-100); Potassium 4.1 mmoL/L (3.5-5.1); Sodium 139 mmol/L (136-145); Total Protein,Serum 7.8 g/dl (6.3-8.2)
== END ==
PROVIDERS: PCP Nurse Practitioner; Visit Provider Nurse Practitioner
DX: I5A Non-ischemic myocardial injury (non-traumatic) (principal); T50.8X5A Adverse effect of diagnostic agents, initial encounter; T78.2XXA Anaphylactic shock, unspecified, initial encounter; Y78.0 Diagnostic and monitoring radiological devices associated with adverse incidents
CPT/HCPCS: 80053; 85025

== ENCOUNTER → 2023-02-27 15:19 | Outpatient (CLI) | payer OTHER, SELFPAY ==
[2023-02-27 16:53] LABS: T4 (Thyroxine) 8.2 ug/dl (5.53-11.0); Triiodothryronine (T3) Uptake 28 % (23.5-40.5)
[2023-03-01 16:43] LABS: Thyroglobulin IMA CHARGE YES; Thyroglobulin Level <1.0 IU/mL (0.0-0.9)
== END ==
PROVIDERS: PCP Nurse Practitioner; Visit Provider Otolaryngology
DX: Z80.8 Family history of malignant neoplasm of other organs or systems (principal); Z79.899 Other long term (current) drug therapy
CPT/HCPCS: 36415; 84436; 84443; 84479; 86800

== ENCOUNTER → 2023-02-28 12:52 | Outpatient (CLI) | payer OTHER, SELFPAY ==
--- NOTE | 2023-02-28 13:00 | XR_ITS ---
FINAL REPORT CLINICAL HISTORY: PAIN radiates down right leg. FINDINGS: 5 views were obtained. There is no acute fracture. There is no malalignment. There is mild rightward curvature. There are mild degenerative changes with small osteophytes. There is a moderate amount of retained stool. Postoperative changes are seen in the right abdomen and in the pelvis. IMPRESSION: Mild degenerative changes. Reviewed, Interpreted and Dictated by Syd Singh III, MD Transcribed by Santo Posadas Authenticated and [facility]
== END ==
PROVIDERS: PCP Nurse Practitioner; Visit Provider Anesthesiology
DX: M54.16 Radiculopathy, lumbar region (principal)
CPT/HCPCS: 72110

== ENCOUNTER → 2023-03-14 16:03 | Outpatient (CLI) | payer OTHER, SELFPAY ==
--- NOTE | 2023-03-14 16:06 | MR_ITS ---
PROCEDURE INFORMATION: Exam: MR Lumbar Spine Without Contrast Exam date and time: 03/14/2023 4:16 PM Age: 37 years old Clinical indication: Low back pain; Additional info: Radiculopathy TECHNIQUE: Imaging protocol: Magnetic resonance imaging of the lumbar spine without contrast. COMPARISON: CR XR LUMBAR SPINE MIN 4V 02/28/2023 1:04 PM FINDINGS: Bones/joints: There is L5-S1 disc desiccation noted. Otherwise the intervertebral disc spaces are maintained. No fracture. Normal alignment. Spinal cord: Visualized cord, conus medullaris and cauda equina are unremarkable without compression. L1-L2: No significant disc bulge or herniation. No severe spinal canal stenosis. No significant neural foraminal narrowing. L2-L3: No significant disc bulge or herniation. No severe spinal canal stenosis. No significant neural foraminal narrowing. L3-L4: No significant disc bulge or herniation. No severe spinal canal stenosis. No significant neural foraminal narrowing. L4-L5: There is a small broad-based central disc protrusion without significant spinal canal stenosis. The right neural foramen appears patent. There is left foraminal disc bulging without significant neural foraminal stenosis. L5-S1: There is a small broad-based central disc protrusion which causes minimal mass effect on the anterior thecal sac. There is no significant spinal canal stenosis. The protrusion appears to mildly abut the central S1 nerve roots in the right lateral recess. There is bilateral foraminal disc bulging and facet hypertrophy without significant neural foraminal stenosis. Soft tissues: Unremarkable. IMPRESSION: Degenerative changes as described. Please see above for specific findings at each level.
== END ==
PROVIDERS: PCP Nurse Practitioner; Visit Provider Anesthesiology
DX: M54.16 Radiculopathy, lumbar region (principal)
CPT/HCPCS: 72148; 76376

== ENCOUNTER → 2023-03-22 14:39 | Outpatient (CLI) | payer OTHER, SELFPAY ==
--- NOTE | 2023-03-22 14:39 | US_ITS ---
FINAL REPORT TECHNIQUE: Real-time grayscale and color ultrasound of the thyroid was performed. CLINICAL HISTORY: thyroid nodule COMPARISON: None FINDINGS: The thyroid gland measures 46 mm on the right and 43 mm on the left. The isthmus measures 5 mm. Nodules: Left 2 x 2 x 2 mm solid hypoechoic TR 4 nodule. IMPRESSION: 2 mm left TR 4 nodule. No follow-up recommended per TI-RADS criteria. Reviewed, Interpreted and Dictated by Syd Singh III, MD Transcribed by Arabella Colmenares Authenticated and [facility]
== END ==
PROVIDERS: PCP Nurse Practitioner; Visit Provider Otolaryngology
DX: Z80.8 Family history of malignant neoplasm of other organs or systems (principal)
CPT/HCPCS: 76536

== ENCOUNTER → 2023-03-29 12:19 | Outpatient (CLI) | payer OTHER, SELFPAY ==
--- NOTE | 2023-03-29 12:23 | XR_ITS ---
FINAL REPORT CLINICAL HISTORY: CERVICAL RADICULOPATHY COMPARISON: None FINDINGS: CERVICAL SPINE 5 views were obtained. There is no acute fracture or malalignment. Inter-vertebral disc and vertebral body heights are preserved. Cervical lordosis is preserved. Facet joints are properly aligned. Mild degenerative disease at C5-6. Precervical soft tissues are normal. IMPRESSION: Mild degenerative changes without acute osseous abnormality. Reviewed, Interpreted and Dictated by Macey Castro MD Transcribed by Arabella Colmenares Authenticated and [facility]
== END ==
PROVIDERS: PCP Nurse Practitioner; Visit Provider Physician Assistant
DX: M54.12 Radiculopathy, cervical region (principal)
CPT/HCPCS: 72050

== ENCOUNTER 2023-05-29 10:21 | Outpatient (CLI) | payer OTHER, SELFPAY ==
[2023-05-29 10:59] LABS: Basophils % 0.3 % (0.1-2.0); Eosinophils # 0.1 K/mm3 (0.0-0.4); Eosinophils % 1.7 % (0.1-12.0); Hematocrit 42.2 % (37.0-47.0); Hemoglobin 14.5 g/dL (12.2-16.2); Lymphocytes # 1.5 K/mm3 (0.7-4.5); Lymphocytes % 18.1 % (10-50); Mean Corpuscular HGB Conc 34.5 g/dL (31.8-35.4); Mean Corpuscular Hemoglobin 30.6 pg (27.0-31.2); Mean Corpuscular Volume 88.8 fl (81-99); Mean Platelet Volume 8.9 fl (7.4-10.4); Monocytes # 0.3 K/mm3 (0.1-1.0); Monocytes % 3.2 % (1.7-9.3); Neutrophils # 6.3 K/mm3 (1.8-7.8); Neutrophils % 76.8 % (37.0-80.0); Platelet Count 264 K/mm3 (142-424); Red Blood Count 4.75 M/mm3 (4.20-5.40); Red Cell Distribution Width 13.6 % (11.5-17.5); White Blood Count 8.2 K/mm3 (4.8-10.8)
[2023-05-29 11:27] LABS: Chloride 105 mmol/L (98-107); Potassium 3.9 mmoL/L (3.5-5.1); Sodium 138 mmol/L (136-145)
[2023-05-29 11:30] LABS: Alanine Aminotransferase 34 U/L (12-78); Albumin Level 4.3 g/dl (3.5-5.0); Albumin/Globulin Ratio 1.7 (1.1-1.8); Alkaline Phosphatase 71 U/L (38-126); Anion Gap 9.9 mEq/L (5-15); Aspartate Amino Transferase 30 U/L (14-36); Bilirubin,Total 0.4 mg/dl (0.2-1.3); Blood Urea Nitrogen 12 mg/dl (7-17); Calcium 8.6 mg/dl (8.4-10.2); Carbon Dioxide 27 mmol/L (22.0-30.0); Estimated Glomerular Filt Rate 113 ml/min (>60); GFR (African American) 137 ML/MIN (>60); Globulin 2.5 g/dL (1.3-3.2); Glucose 107 mg/dl (74-100); Total Protein,Serum 6.8 g/dl (6.3-8.2); Uric Acid 5.2 mg/dl (2.5-6.2)
[2023-05-29 11:40] LABS: Erythrocyte Sedimentation Rate 20 mm/hr (0-20)
[2023-05-30 11:17] LABS: RA Latex Turbid. <10.0 IU/mL (<14.0)
[2023-05-30 14:12] LABS: Anti-Cyclic Citrullinated Pept 7 units (0-19)
[2023-05-31 15:02] LABS: Antinuclear Antibodies, IFA Negative (.)
[2023-06-06 21:20] LABS: HLA-B27 Negative (.)
== END 2023-05-29 23:59 ==
LOC: LAB 10:23
PROVIDERS: PCP Nurse Practitioner; Visit Provider Podiatrist Foot & Ankle Surgery
DX: M79.672 Pain in left foot (principal)
CPT/HCPCS: 36415; 80053; 84550; 85025; 85651; 86038; 86140; 86200; 86431; 86812

== ENCOUNTER 2023-07-04 19:56 | Outpatient (CLI) | payer OTHER, SELFPAY | END 2023-07-04 23:59 | LOC: LAB.DROPOF 19:56 | PROVIDERS: PCP Nurse Practitioner; Visit Provider Nurse Practitioner | DX: J10.1 Influenza due to other identified influenza virus with other respiratory manifestations (principal); R10.9 Unspecified abdominal pain; R11.2 Nausea with vomiting, unspecified | CPT/HCPCS: 87086 ==

== ENCOUNTER 2023-07-31 18:26 | Outpatient (CLI) | payer OTHER, SELFPAY ==
[2023-07-31 18:17] LABS: Basophils # 0.1 K/mm3 (0-0.2); Eosinophils # 0.1 K/mm3 (0.0-0.4); Eosinophils % 1.2 % (0.1-12.0); Hematocrit 46.5 % (37.0-47.0); Hemoglobin 15.5 g/dL (12.2-16.2); Lymphocytes # 1.7 K/mm3 (0.7-4.5); Lymphocytes % 20.4 % (10-50); Mean Corpuscular HGB Conc 33.4 g/dL (31.8-35.4); Mean Corpuscular Hemoglobin 31.3 pg (27.0-31.2); Mean Corpuscular Volume 93.7 fl (81-99); Mean Platelet Volume 9.8 fl (7.4-10.4); Monocytes # 0.3 K/mm3 (0.1-1.0); Monocytes % 3.2 % (1.7-9.3); Neutrophils # 6.1 K/mm3 (1.8-7.8); Neutrophils % 74.2 % (37.0-80.0); Platelet Count 269 K/mm3 (142-424); Red Blood Count 4.97 M/mm3 (4.20-5.40); Red Cell Distribution Width 13.3 % (11.5-17.5); White Blood Count 8.2 K/mm3 (4.8-10.8)
[2023-07-31 18:42] LABS: Alanine Aminotransferase 49 U/L (12-78); Albumin Level 4.9 g/dl (3.5-5.0); Albumin/Globulin Ratio 1.7 (1.1-1.8); Alkaline Phosphatase 73 U/L (38-126); Anion Gap 11.8 mEq/L (5-15); Aspartate Amino Transferase 43 U/L (14-36); Bilirubin,Total 0.8 mg/dl (0.2-1.3); Blood Urea Nitrogen 14 mg/dl (7-17); Calcium 9.6 mg/dl (8.4-10.2); Carbon Dioxide 29 mmol/L (22.0-30.0); Chloride 102 mmol/L (98-107); Chol/HDL Ratio 5.3 (1-3.5); Cholesterol 258 mg/dl (140-200); Estimated Glomerular Filt Rate 81 ml/min (>60); GFR (African American) 98 ML/MIN (>60); Globulin 2.9 g/dL (1.3-3.2); Glucose 100 mg/dl (74-100); HDL Cholesterol 49 mg/dl (40-60); Potassium 3.8 mmoL/L (3.5-5.1); Sodium 139 mmol/L (136-145); Total Protein,Serum 7.8 g/dl (6.3-8.2); Triglycerides 113 mg/dl (30-150); VLDL Cholesterol 23 mg/dL (0-40)
[2023-07-31 19:01] LABS: Direct LDL Cholesterol 159.51 mg/dL (100-129)
[2023-07-31 19:13] LABS: Thyroid Stimulating Hormone 0.76 uIU/mL (0.465-4.68)
[2023-07-31 19:23] LABS: Creatinine,Urine Random 615 mg/dL (Not Estab.); Microalbumin/Creatinine Ratio 6.5
[2023-07-31 19:32] LABS: Vitamin B12 619 pg/mL (239-931)
[2023-07-31 19:57] LABS: 25-OH Vitamin D, Total 24.6 ng/mL (30-100)
== END 2023-07-31 23:59 ==
LOC: LAB.DROPOF 18:27
PROVIDERS: PCP Nurse Practitioner; Visit Provider Nurse Practitioner
DX: Z68.27 Body mass index [BMI] 27.0-27.9, adult (principal); Z79.899 Other long term (current) drug therapy; E66.9 Obesity, unspecified; I10 Essential (primary) hypertension; E05.90 Thyrotoxicosis, unspecified without thyrotoxic crisis or storm; F41.9 Anxiety disorder, unspecified; F32.A Depression, unspecified
CPT/HCPCS: 80053; 80061; 82043; 82306; 82570; 82607; 84439; 84443; 85025

== ENCOUNTER 2023-08-22 20:10 | Outpatient (CLI) | payer OTHER, SELFPAY ==
[2023-08-22 18:36] LABS: Basophils # 0.1 K/mm3 (0-0.2); Basophils % 0.8 % (0.1-2.0); Eosinophils # 0.1 K/mm3 (0.0-0.4); Eosinophils % 1.4 % (0.1-12.0); Hemoglobin 13.9 g/dL (12.2-16.2); Lymphocytes # 1.8 K/mm3 (0.7-4.5); Mean Corpuscular HGB Conc 33.2 g/dL (31.8-35.4); Mean Corpuscular Hemoglobin 30.7 pg (27.0-31.2); Mean Corpuscular Volume 92.6 fl (81-99); Mean Platelet Volume 8.9 fl (7.4-10.4); Monocytes # 0.4 K/mm3 (0.1-1.0); Neutrophils # 5.5 K/mm3 (1.8-7.8); Neutrophils % 69.9 % (37.0-80.0); Platelet Count 275 K/mm3 (142-424); Red Blood Count 4.53 M/mm3 (4.20-5.40); Red Cell Distribution Width 13.4 % (11.5-17.5); White Blood Count 7.9 K/mm3 (4.8-10.8)
[2023-08-22 18:43] LABS: Alanine Aminotransferase 39 U/L (12-78); Albumin Level 4.2 g/dl (3.5-5.0); Albumin/Globulin Ratio 1.6 (1.1-1.8); Alkaline Phosphatase 59 U/L (38-126); Anion Gap 9.8 mEq/L (5-15); Aspartate Amino Transferase 37 U/L (14-36); Bilirubin,Total 0.5 mg/dl (0.2-1.3); Blood Urea Nitrogen 9 mg/dl (7-17); Calcium 9.2 mg/dl (8.4-10.2); Carbon Dioxide 27 mmol/L (22.0-30.0); Chloride 105 mmol/L (98-107); Estimated Glomerular Filt Rate 113 ml/min (>60); GFR (African American) 137 ML/MIN (>60); Globulin 2.6 g/dL (1.3-3.2); Glucose 114 mg/dl (74-100); Potassium 3.8 mmoL/L (3.5-5.1); Sodium 138 mmol/L (136-145); Total Protein,Serum 6.8 g/dl (6.3-8.2)
[2023-08-22 19:14] LABS: Thyroid Stimulating Hormone 0.98 uIU/mL (0.465-4.68)
== END 2023-08-22 23:59 ==
LOC: LAB.DROPOF 20:13
PROVIDERS: PCP Nurse Practitioner; Visit Provider Nurse Practitioner
DX: G25.3 Myoclonus (principal); R41.3 Other amnesia
CPT/HCPCS: 80053; 84443; 85025

== ENCOUNTER 2023-08-23 11:29 | Emergency (ER) | payer OTHER, SELFPAY ==
[2023-08-23] VITALS (7 sets, daily range): BP systolic 112–131; BP diastolic 68–88; PULSE 65–81; RESP 13–18; TEMP 36.7–36.9; O2SAT 97–100; BMI 27.4; BMI 29.8
--- NOTE | 2023-08-23 11:31 | ECG_ITS ---
APPROVED REPORT Exam: Resting ECG HR:74 bpm ECG Measurements Heart Rate 74 AXES OK 152 P 53 QRSd 110 QRS 58 QT 312 T -49 QTc 339 Conclusion SINUS RHYTHM Wandering baseline with nonspecific T wave changes in inferior leads. Nondiagnostic Electronically signed by : JEFFERSON MIRANDA, 08/23/2023 13:39:34
--- NOTE | 2023-08-23 11:34 | XR_ITS ---
FINAL REPORT CLINICAL HISTORY: Precordial chest pain COMPARISON: 01/30/2023 FINDINGS: A single portable view of the chest was obtained. The heart size and pulmonary vascularity are within normal limits. The mediastinum is within normal limits. No acute pulmonary abnormality is identified. The bony thorax is intact. IMPRESSION: No active cardiopulmonary disease. Reviewed, Interpreted and Dictated by Syd Singh III, MD Transcribed by Arabella Colmenares Authenticated and [facility]
[2023-08-23 11:42] LABS: Basophils # 0.2 K/mm3 (0-0.2); Basophils % 1.6 % (0.1-2.0); Eosinophils # 0.2 K/mm3 (0.0-0.4); Eosinophils % 1.8 % (0.1-12.0); Hematocrit 43.5 % (37.0-47.0); Hemoglobin 14.8 g/dL (12.2-16.2); Lymphocytes # 2.4 K/mm3 (0.7-4.5); Mean Corpuscular Hemoglobin 30.4 pg (27.0-31.2); Mean Corpuscular Volume 89.6 fl (81-99); Mean Platelet Volume 8.6 fl (7.4-10.4); Monocytes # 0.6 K/mm3 (0.1-1.0); Neutrophils # 6.6 K/mm3 (1.8-7.8); Neutrophils % 66.5 % (37.0-80.0); Platelet Count 279 K/mm3 (142-424); Red Blood Count 4.85 M/mm3 (4.20-5.40); Red Cell Distribution Width 13.3 % (11.5-17.5); White Blood Count 9.9 K/mm3 (4.8-10.8)
[2023-08-23 11:51] LABS: Alanine Aminotransferase 45 U/L (12-78); Albumin Level 4.5 g/dl (3.5-5.0); Albumin/Globulin Ratio 1.4 (1.1-1.8); Alkaline Phosphatase 67 U/L (38-126); Anion Gap 9.7 mEq/L (5-15); Aspartate Amino Transferase 40 U/L (14-36); Bilirubin,Total 0.6 mg/dl (0.2-1.3); Blood Urea Nitrogen 13 mg/dl (7-17); Calcium 9.3 mg/dl (8.4-10.2); Carbon Dioxide 28 mmol/L (22.0-30.0); Chloride 104 mmol/L (98-107); Creatinine Clearance Estimated 138 mL/min (50-200); Estimated Glomerular Filt Rate 95 ml/min (>60); GFR (African American) 115 ML/MIN (>60); Globulin 3.2 g/dL (1.3-3.2); Glucose 97 mg/dl (74-100); Lipase 54 U/L (23-300); Potassium 3.7 mmoL/L (3.5-5.1); Sodium 138 mmol/L (136-145); Total Protein,Serum 7.7 g/dl (6.3-8.2)
[2023-08-23 11:57] LABS: HCG Qualitative, Serum Negative (Negative)
[2023-08-23] MEDS: ONDANSETRON 4MG/2ML VIAL 4 MG IV (12:01)
[2023-08-23] MEDS: BELLADONNA ALKALOIDS 60 ML ML PO (12:01)
[2023-08-23] MEDS: LACTATED RINGERS 1000ML 1,000 ML 999 ML IV (12:01)
[2023-08-23 12:04] LABS: Troponin I < 0.01 ng/ml (0.00-0.034)
--- NOTE | 2023-08-23 12:18 | HMH.EDCP ---
Discharge Plan Disposition Patient Disposition: Home, Self-Care Prescriptions Prescriptions: New esomeprazole magnesium 20 mg capsule,delayed release(DR/EC) 20 mg PO DAILY 28 Days Qty: 28 0RF ondansetron 4 mg tablet,disintegrating 4 mg PO Q6H PRN (Reason: nausea and vomiting) Qty: 10 0RF No Action doxycycline hyclate 100 mg tablet 100 mg PO BID Qty: 20 0RF Contrave 8-90 mg tablet extended release 2 tab PO BID Qty: 120 2RF sertraline 100 mg tablet 200 mg PO DAILY Qty: 180 1RF cyanocobalamin (vitamin B-12) 1,000 mcg tablet See Rx Instructions .ROUTE .COMPLEX Qty: 90 1RF Dose Instruction: TAKE 1 TABLET ORALLY ONCE DAILY Rx Instructions: TAKE 1 TABLET ORALLY ONCE DAILY cholecalciferol (vitamin D3) 125 mcg (5,000 unit) tablet 125 mcg PO DAILY Qty: 90 1RF albuterol sulfate 90 mcg/actuation HFA aerosol inhaler 2 puff INHALATION Q4-6H PRN (Reason: Wheezing or Shortness of Breath) Patient Comments: INHALE 2 PUFFS BY MOUTH EVERY 4 TO 6 HOURS NEEDED FOR WHEEZING OR SHORTNESS OF BREATH Referrals Follow up/Referrals: Charley Chanel APRN [Primary Care Provider] - See instructions Activity Restrictions/Add. Instructions Additional Instructions/Restrictions: Call your family doctor to establish care for this visit to the emergency department and schedule follow-up within 48 hours to ensure improvement. If you have any worsening of your condition or any other concerning signs or symptoms, return to the emergency department or your primary care doctor for further evaluation. Continue following with cardiology and pulmonology for further evaluation of chest pain. Continue taking antacid med occasion, this was sent to the pharmacy (esomeprazole) to help with your chest pain and indigestion. Clinical Impressions Clinical Impression: Chest pain Qualifiers: Chest pain type: unspecified Qualified Code(s): R07.9 - Chest pain, unspecified Discharge ED Provider: Justo Ramos General Chief Complaint: Chest Pain Stated Complaint: Chest Pain Time Seen by Provider: 08/23/23 11:43 Mode of Arrival: Ambulatory Source of Information: Patient Limitations: No Limitations Description of Symptoms (Recalled from ER Triage Doc. by RN): pt presents to ED c/o n/v that started this date. pt reports vomit was blood and bile. pt states while driving into the ED she started experiencing chest pain. pt reports she has been having chest pain for a few months and recently were a Holter monitor for [facility]. History of Present Illness HPI narrative: 37-year-old female history of anxiety, depression, chronic chest pain, STEMI secondary to anaphylaxis to MRI contrast, presenting with vomiting. Patient states that she was doing nothing in particular's morning when she began vomiting. It was initially yellow, started having streaks of blood in it. Associated with chest pain. No shortness of breath, diaphoresis, vladislav abdominal pain, diarrhea, fevers or chills. Chest pain feels like it is at her baseline chronic chest pain. Does not radiate, no neurologic deficits. Please note that above description of symptoms, in this electronic medical record under categorization of recalled from ER triage doctor by RN are reflective of an initial nursing assessment, however, is not reflective of my full history and physical exam that was personally taken and clarified. Consequentially, this preceding description of symptoms, which may include the patient's categorized chief complaint in the EMR, do not reflect my personal clinical impression, and the ultimate description of history of present illness and patient stated complaints should be deferred to this section of the note. Unless stated otherwise or congruent with this section of the note, additional signs, symptoms, or incongruence should be interpreted as inaccurate with my clinical impression. Related Data Home Medications Medication Instructions Recorded Confirmed albuterol sulfate 90 mcg/actuation 2 puff inhalation Q4-6H PRN 01/31/23 08/23/23 aerosol inhaler Wheezing or Shortness of Breath Previous Rx's Medication Instructions Recorded cyanocobalamin (vitamin B-12) See Rx Instructions .Route 04/24/23 1,000 mcg tablet .COMPLEX #90 tabs naltrexone 8 mg-bupropion 90 mg 2 tab PO BID #120 tabs 07/31/23 tablet,extended release (Contrave) sertraline 100 mg tablet 200 mg (2 x 100 mg) PO DAILY #180 07/31/23 tabs cholecalciferol (vitamin D3) 125 125 mcg PO DAILY #90 tabs 08/08/23 mcg (5,000 unit) tablet doxycycline hyclate 100 mg tablet 100 mg PO BID #20 tabs 08/22/23 esomeprazole magnesium 20 mg 20 mg PO DAILY 28 days #28 caps 08/23/23 capsule,delayed release ondansetron 4 mg disintegrating 4 mg PO Q6H PRN nausea and 08/23/23 tablet vomiting #10 tabs Allergies Allergy/AdvReac Type Severity Reaction Status Date / Time Iodinated Contrast Media Allergy Mild Rash Verified 08/22/23 09:48 [facility] Disclaimer: The information contained in this section may have been updated after the patient was seen, as this information can be updated by other users. Medical History (Updated 08/23/23 @ 14:40 by Justo Ramos MD) Cellulitis of left thigh Memory changes Myoclonic jerking while sleeping Essential hypertension Sleep apnea New daily persistent headache Tremor of right hand Hyperthyroidism Thyromegaly Acute right-sided low back pain with right-sided sciatica Obesity (BMI 30.0-34.9) Anxiety and depression Anaphylactic reaction to contrast media Urinary tract infection Pelvic inflammatory disease (PID) Endometriosis History of syncope Migraine History of chest pain Loss of balance Family history of thyroid cancer Fatigue Midline low back pain with right-sided sciatica Costochondritis Abnormal Holter exam Palpitations Bilateral lower extremity edema Neoplasm of uncertain behavior of skin of upper arm Encounter for administration of vaccine Bulky or enlarged uterus Ovarian cyst Severe dysmenorrhea Heavy menstrual bleeding Surgical History History of cholecystectomy H/O hysterectomy for benign disease Family History Other Cancer Diabetes Heart attack Social History Smoking Status: Never smoker alcohol intake: never substance use type: denies use current occupational status: unemployed Travel in the last 8 weeks: None household members: family and children housing: house current occupational exposures/hazards: No caffeine: Yes ROS Obtained: Yes All systems reviewed & no additional complaints except as documented Physical Exam General General appearance: alert Neck Neck exam: Present trachea midline Chest Chest inspection: Present normal inspection and symmetric chest wall rise Respiratory Respiratory exam: Present normal lung sounds bilaterally; Absent respiratory distress, wheezes, stridor, accessory muscle use or prolonged expiratory phase Cardiovascular Cardiovascular exam: Present regular rate and normal rhythm Extremities Exam Extremities exam: Absent edema Neurological Exam Neurological exam: Present alert, oriented X3 and CN II-XII intact Skin Skin exam: Present warm and dry; Absent cyanosis, diaphoresis or pallor HEART Score HEART Score HEART Score assessment performed?: Yes HEART Score: 1 Critical Care Critical Care Time Critical Care Time: No Medical Decision Making Medical Records Medical records reviewed: Yes I reviewed the patient's medical records. Rodolfo Inquiry Pt receiving controlled substance: No Rodolfo was queried for this patient: No Vital Signs Vital Signs: 08/23/23 11:29 08/23/23 11:36 08/23/23 11:44 Temperature 98.4 F Temperature Source Oral Pulse Rate 78 74 Pulse Rate [Right Brachial] 78 Respiratory Rate 16 13 Blood Pressure 116/74 Blood Pressure [Right Arm] 129/75 Blood Pressure Mean [Right Arm] 93 Blood Pressure Source Blood Pressure Source [Right Arm] Automatic Cuff Blood Pressure Position Blood Pressure Position [Right Arm] Sitting 02 Sat by Pulse Oximetry 99 98 Oxygen Delivery Method Room Air 08/23/23 12:00 08/23/23 12:31 08/23/23 13:25 Temperature Temperature Source Pulse Rate 74 67 65 Pulse Rate [Right Brachial] Respiratory Rate 14 18 16 Blood Pressure 123/82 131/88 112/72 Blood Pressure [Right Arm] Blood Pressure Mean [Right Arm] Blood Pressure Source Automatic Cuff Automatic Cuff Blood Pressure Source [Right Arm] Blood Pressure Position Sitting Sitting Blood Pressure Position [Right Arm] 02 Sat by Pulse Oximetry 98 97 100 Oxygen Delivery Method Room Air Room Air 08/23/23 14:46 Temperature 98.0 F Temperature Source Oral Pulse Rate 81 Pulse Rate [Right Brachial] Respiratory Rate 18 Blood Pressure 116/68 Blood Pressure [Right Arm] Blood Pressure Mean [Right Arm] Blood Pressure Source Automatic Cuff Blood Pressure Source [Right Arm] Blood Pressure Position Sitting Blood Pressure Position [Right Arm] 02 Sat by Pulse Oximetry Oxygen Delivery Method Room Air Lab Data Labs: Lab Results 08/23/23 11:35: WBC 9.9 D, RBC 4.85, Hgb 14.8, Hct 43.5, MCV 89.6, MCH 30.4, MCHC 34.0, RDW 13.3, Plt Count 279, MPV 8.6, Neut % (Auto) 66.5, Lymph % (Auto) 24.0, [place] % (Auto) 6.0, Eos % (Auto) 1.8, Baso % (Auto) 1.6, Neut # (Auto) 6.6, Lymph # (Auto) 2.4, [place] # (Auto) 0.6, Eos # (Auto) 0.2, Baso # (Auto) 0.2, Sodium 138, Potassium 3.7, Chloride 104, Carbon Dioxide 28, Anion Gap 9.7, BUN 13 D, Creatinine 0.70, Estimated Creat Clear 138, Estimated GFR 95, Est GFR ( Amer) 115, Glucose 97, Calcium 9.3, Total Bilirubin 0.6, AST 40 H, ALT 45, Alkaline Phosphatase 67, Troponin I < 0.01, Total Protein 7.7, Albumin 4.5, Globulin 3.2, Albumin/Globulin Ratio 1.4, Lipase 54, Serum HCG, Qual Negative 08/23/23 13:26: Troponin I < 0.01 08/23/23 11:35 08/23/23 11:35 Response Orders (Tests/Meds): ED MEDICATIONS Discontinued Medications Generic Name Dose Route Start Last Admin Trade Name Freq PRN Reason Stop Dose Admin Belladonna Alkaloids 60 ml 08/23/23 11:57 08/23/23 12:01 Belladonna Alkaloids 60 Ml Ml PO 08/23/23 11:58 60 ml ONCE ONE Administration Lactated Ringer's 1,000 mls @ 999 mls/hr 08/23/23 11:57 08/23/23 12:01 Lactated Ringer's 1000 Ml Bag IV 08/23/23 12:57 999 mls/hr .Q1H1M ONE Administration Ondansetron HCl 4 mg 08/23/23 11:57 08/23/23 12:01 Ondansetron 4mg/2ml Vial IV 08/23/23 11:58 4 mg ONCE ONE Administration Sodium Chloride 10 ml 08/23/23 11:38 Sodium Chloride 0.9% 10ml Flush Syringe IV 09/22/23 11:37 NEEDED PRN Maintain IV Site ORDERS Category Date Time Status CXR --portable [XR chest portable] Stat Exams 08/23/23 11:34 Completed Complete Blood Count Auto Diff Stat Lab 08/23/23 11:35 Completed Comprehensive Metabolic Panel Stat Lab 08/23/23 11:35 Completed HCG Qualitative, Serum Stat Lab 08/23/23 11:35 Completed Lipase Stat Lab 08/23/23 11:35 Completed Troponin I Q3H Lab 08/23/23 13:26 Completed Troponin I Q3H Lab 08/23/23 17:45 Ordered Troponin I Stat Lab 08/23/23 11:35 Completed MDM Narrative Medical Decision Narrative: 37-year-old female history of anxiety, depression, chronic chest pain, STEMI secondary to anaphylaxis to MRI contrast, presenting with vomiting. Patient states that she was doing nothing in particular's morning when she began vomiting. It was initially yellow, started having streaks of blood in it. Associated with chest pain. No shortness of breath, diaphoresis, vladislav abdominal pain, diarrhea, fevers or chills. Chest pain feels like it is at her baseline chronic chest pain. Does not radiate, no neurologic deficits. History was obtained via conversation with patient. On arrival, patient hemodynamically stable, alert, oriented x4, appropriate, GCS 15, moving all extremities spontaneously, pupils equal and reactive to light. Full physical exam performed and significant for very well-appearing, no acute distress. Cardiopulmonary exam within normal limits, no lower extremity edema. Lungs are clear to auscultation bilaterally anterior and posterior. Abdomen soft, nontender, nondistended. Patient not actively retching in front of me, has not had any vomiting here in the emergency department. Differential includes gastritis, enteritis, PUD, esophagitis, Jessica-Parker tear, esophageal perforation, ACS, ID, acute on chronic chest pain, costochondritis, among others. Because patient hemodynamically stable, afebrile, no acute distress, very clinically well-appearing, nontachycardic and normotensive saturating 100% on room air, I have very low concern for esophageal perforation. Patient placed in ED observation at 11:45 AM to rule out evolving ID with delta troponins. Patient was provided serial evaluations, cardiac monitoring, medications and fluids while awaiting results. Patient was given GI cocktail, Zofran, fluid bolus for symptomatic management. Independent to rotation of initial EKG on arrival 74 beats a minute sinus rhythm without ST or T wave changes concerning for acute ischemia. [place], QRS, QT intervals within normal limits. Wandering baseline in inferior leads, nondiagnostic overall. Independent interpretation of labs and imaging demonstrated nonactionable CBC or chemistry. Negative troponin. Chest x-ray without acute cardiopulmonary airspace disease. No evidence of free air, pneumomediastinum, or other findings concerning for esophageal perforation. On reevaluation, patient resting comfortably in bed. given patient presentation, workup, history, this most likely represents gastritis versus esophagitis. Less likely be cardiac in etiology after extensive cardiac workup, negative workup today, and chronicity of pain. Patient was prescribed Zofran and esomeprazole for outpatient management. Because patient at baseline without signs or symptoms of clinical decompensation, deemed appropriate for discharge. Results were relayed to patient who voiced understanding and were agreeable to outpatient management and follow up. I discussed my clinical impression with patient and answered all questions. At this time, the evidence for any other entities in the differential is insufficient to warrant any further testing or ED observation. This was explained as well. Advisory was given that persistent or worsening symptoms require further evaluation. I confirmed the understanding of this discussion.
--- NOTE | 2023-08-23 12:41 | PC.NURSE ---
Rounded on patient, no needs voiced at this time.
--- NOTE | 2023-08-23 13:50 | PC.NURSE ---
pt sitting up in bed watching videos on phone, denies any needs at this time. call light w/i reach. updated on poc.
[2023-08-23 14:25] LABS: Troponin I < 0.01 ng/ml (0.00-0.034)
== END 2023-08-23 14:49 | disposition home or self-care (01) ==
PROVIDERS: Emergency Provider Emergency Medicine; PCP Nurse Practitioner
DX: R07.9 Chest pain, unspecified (principal); R11.2 Nausea with vomiting, unspecified; I10 Essential (primary) hypertension; F41.1 Generalized anxiety disorder
CPT/HCPCS: 71045; 80053; 83690; 84484; 84703; 85025; 93005; 96361; 96374; 99284; J2405

== ENCOUNTER 2023-09-04 10:43 | Outpatient (CLI) | payer OTHER, SELFPAY ==
[2023-09-04 18:39] LABS: Basophils % 0.6 % (0.1-2.0); Eosinophils # 0.1 K/mm3 (0.0-0.4); Eosinophils % 2.1 % (0.1-12.0); Hematocrit 41.9 % (37.0-47.0); Hemoglobin 13.7 g/dL (12.2-16.2); Lymphocytes # 1.5 K/mm3 (0.7-4.5); Lymphocytes % 24.8 % (10-50); Mean Corpuscular HGB Conc 32.7 g/dL (31.8-35.4); Mean Corpuscular Hemoglobin 30.7 pg (27.0-31.2); Mean Corpuscular Volume 93.9 fl (81-99); Mean Platelet Volume 10.1 fl (7.4-10.4); Monocytes # 0.2 K/mm3 (0.1-1.0); Monocytes % 3.8 % (1.7-9.3); Neutrophils % 68.8 % (37.0-80.0); Platelet Count 246 K/mm3 (142-424); Red Blood Count 4.46 M/mm3 (4.20-5.40); Red Cell Distribution Width 13.3 % (11.5-17.5); White Blood Count 5.9 K/mm3 (4.8-10.8)
[2023-09-04 18:56] LABS: Chloride 108 mmol/L (98-107); Sodium 141 mmol/L (136-145)
[2023-09-04 18:57] LABS: Potassium 3.9 mmoL/L (3.5-5.1)
[2023-09-04 18:59] LABS: Alanine Aminotransferase 38 U/L (12-78); Alkaline Phosphatase 63 U/L (38-126); Aspartate Amino Transferase 37 U/L (14-36); Bilirubin,Total 0.5 mg/dl (0.2-1.3); Blood Urea Nitrogen 12 mg/dl (7-17); Estimated Glomerular Filt Rate 95 ml/min (>60); GFR (African American) 115 ML/MIN (>60)
[2023-09-04 19:00] LABS: Albumin Level 4.1 g/dl (3.5-5.0); Albumin/Globulin Ratio 1.6 (1.1-1.8); Anion Gap 7.9 mEq/L (5-15); Calcium 9.1 mg/dl (8.4-10.2); Carbon Dioxide 29 mmol/L (22.0-30.0); Globulin 2.6 g/dL (1.3-3.2); Glucose 102 mg/dl (74-100); Total Protein,Serum 6.7 g/dl (6.3-8.2)
[2023-09-04 20:49] LABS: Hemoglobin A1C 5.2 % (4.0-6.0)
== END 2023-09-04 23:59 | disposition home or self-care (01) ==
LOC: LAB.DROPOF 09-05 10:43
PROVIDERS: PCP Nurse Practitioner; Visit Provider Nurse Practitioner
DX: I10 Essential (primary) hypertension (principal); B96.29 Other Escherichia coli [E. coli] as the cause of diseases classified elsewhere; R80.9 Proteinuria, unspecified
CPT/HCPCS: 80053; 83036; 85025; 87086

== ENCOUNTER 2023-09-21 18:00 | Outpatient (CLI) | payer OTHER, SELFPAY ==
[2023-09-21 17:58] LABS: Basophils # 0.2 K/mm3 (0-0.2); Basophils % 2.3 % (0.1-2.0); Eosinophils # 0.2 K/mm3 (0.0-0.4); Eosinophils % 2.3 % (0.1-12.0); Hematocrit 43.8 % (37.0-47.0); Hemoglobin 15.1 g/dL (12.2-16.2); Lymphocytes # 1.7 K/mm3 (0.7-4.5); Lymphocytes % 23.8 % (10-50); Mean Corpuscular HGB Conc 34.5 g/dL (31.8-35.4); Mean Corpuscular Hemoglobin 30.3 pg (27.0-31.2); Mean Corpuscular Volume 87.6 fl (81-99); Mean Platelet Volume 9.8 fl (7.4-10.4); Monocytes # 0.3 K/mm3 (0.1-1.0); Monocytes % 3.5 % (1.7-9.3); Neutrophils # 4.9 K/mm3 (1.8-7.8); Neutrophils % 68.1 % (37.0-80.0); Platelet Count 302 K/mm3 (142-424); Red Blood Count 4.99 M/mm3 (4.20-5.40); Red Cell Distribution Width 13.3 % (11.5-17.5); White Blood Count 7.2 K/mm3 (4.8-10.8)
[2023-09-21 19:30] LABS: Erythrocyte Sedimentation Rate 12 mm/hr (0-20)
[2023-09-23 11:18] LABS: Lyme Ab CIA Negative (Negative)
== END 2023-09-21 23:59 | disposition home or self-care (01) ==
LOC: LAB.DROPOF 09-22 13:42
PROVIDERS: PCP Nurse Practitioner; Visit Provider Nurse Practitioner
DX: L30.9 Dermatitis, unspecified (principal); W57.XXXA Bitten or stung by nonvenomous insect and other nonvenomous arthropods, initial encounter
CPT/HCPCS: 85025; 85651; 86140; 86618

== ENCOUNTER 2023-09-30 18:18 | Emergency (ER) | payer OTHER, SELFPAY ==
[2023-09-30 18:19] VITALS: BP 133/84; PULSE 110; RESP 18; TEMP 38; O2SAT 100; BMI 29.2
--- NOTE | 2023-09-30 18:42 | XR_ITS ---
PROCEDURE INFORMATION: Exam: XR Chest Exam date and time: 09/30/2023 6:47 PM Age: 38 years old Clinical indication: Sternal or substernal pain; Additional info: Cp TECHNIQUE: Imaging protocol: Radiologic exam of the chest. Views: 1 view. COMPARISON: CR XR CHEST PORTABLE 08/23/2023 11:42 AM FINDINGS: Lungs: Unremarkable. No consolidation. Pleural spaces: Unremarkable. No pleural effusion. No pneumothorax. Heart/Mediastinum: Unremarkable. No cardiomegaly. Bones/joints: Unremarkable. IMPRESSION: No acute findings.
--- NOTE | 2023-09-30 18:42 | [facility].EDGENADL ---
Discharge Plan Disposition Patient Disposition: Home, Self-Care Prescriptions Prescriptions: No Action omeprazole 40 mg capsule,delayed release(DR/EC) 40 mg PO DAILY Qty: 30 2RF Contrave 8-90 mg tablet extended release 2 tab PO BID Qty: 120 2RF sertraline 100 mg tablet 200 mg PO DAILY Qty: 180 1RF propranolol 10 mg tablet 10 mg PO BID melatonin 5 mg tablet 5 - 10 mg PO HS PRN cyanocobalamin (vitamin B-12) 1,000 mcg tablet See Rx Instructions .ROUTE .COMPLEX Qty: 90 1RF Dose Instruction: TAKE 1 TABLET ORALLY ONCE DAILY Rx Instructions: TAKE 1 TABLET ORALLY ONCE DAILY cholecalciferol (vitamin D3) 125 mcg (5,000 unit) tablet 125 mcg PO DAILY Qty: 90 1RF albuterol sulfate 90 mcg/actuation HFA aerosol inhaler 2 puff INHALATION Q4-6H PRN (Reason: Wheezing or Shortness of Breath) Patient Comments: INHALE 2 PUFFS BY MOUTH EVERY 4 TO 6 HOURS NEEDED FOR WHEEZING OR SHORTNESS OF BREATH ondansetron 4 mg tablet,disintegrating 4 mg PO Q6H PRN (Reason: nausea and vomiting) Qty: 10 0RF Referrals Follow up/Referrals: Charley Chanel APRN [Primary Care Provider] - See instructions Activity Restrictions/Add. Instructions Additional Instructions/Restrictions: At this time it was felt you are safe to be discharged home. If new or worsening symptoms please do not hesitate to return the emergency department. Please continue to follow-up with your specialist on an outpatient basis as we discussed. Clinical Impressions Clinical Impression: Weakness, Chest pressure Discharge ED Provider: Gamaliel Cummings General Adult HPI General Chief complaint: Weakness Stated complaint: body aches,fever Time Seen by Provider: 09/30/23 18:21 Mode of Arrival: Ambulatory Source of Information: Patient Limitations: No Limitations Description of Symptoms (Recalled from ER Triage Doc. by RN): pt reports tingling, lethargy,fever, body aches,insomnia History of Present Illness HPI narrative: Patient is a 38-year-old female with complicated past medical history under investigation by multiple specialties who presents emergency department for evaluation of global weakness. Per chart review patient has past medical history of GERD, chest pain, myoclonic jerking, essential hypertension, daily headaches, hypothyroidism, anxiety and depression, anaphylaxis to contrast media, palpitations. She was reportedly taken off of multiple medications 3 weeks ago, and is difficult to discern exactly which ones. She has had intermittent substernal pressure-like chest pain, global weakness and bodyaches, cough. Patient no longer has her period and has had a hysterectomy and bilateral salpingo-oophorectomy. Since taken off of her medications a few weeks ago she has had poor sleep. Related Data Home Medications Medication Instructions Recorded Confirmed albuterol sulfate 90 mcg/actuation 2 puff inhalation Q4-6H PRN 01/31/23 09/21/23 aerosol inhaler Wheezing or Shortness of Breath melatonin 5 mg tablet 5 - 10 mg PO HS PRN 09/21/23 09/21/23 propranolol 10 mg tablet 10 mg PO BID 09/21/23 09/21/23 Previous Rx's Medication Instructions Recorded cyanocobalamin (vitamin B-12) See Rx Instructions .Route 04/24/23 1,000 mcg tablet .COMPLEX #90 tabs naltrexone 8 mg-bupropion 90 mg 2 tab PO BID #120 tabs 07/31/23 tablet,extended release (Contrave) sertraline 100 mg tablet 200 mg (2 x 100 mg) PO DAILY #180 07/31/23 tabs cholecalciferol (vitamin D3) 125 125 mcg PO DAILY #90 tabs 08/08/23 mcg (5,000 unit) tablet ondansetron 4 mg disintegrating 4 mg PO Q6H PRN nausea and 08/23/23 tablet vomiting #10 tabs omeprazole 40 mg capsule,delayed 40 mg PO DAILY #30 caps 09/04/23 release Allergies Allergy/AdvReac Type Severity Reaction Status Date / Time Iodinated Contrast Media Allergy Mild Rash Verified 09/21/23 09:32 [facility] Disclaimer: The information contained in this section may have been updated after the patient was seen, as this information can be updated by other users. Medical History GERD (gastroesophageal reflux disease) Cellulitis of left thigh Memory changes Myoclonic jerking while sleeping Essential hypertension Sleep apnea Mild New daily persistent headache Tremor of right hand Hyperthyroidism Thyromegaly She has a 2 mm nodule which does not appear to be abnormal based on ultrasonography Acute right-sided low back pain with right-sided sciatica Obesity (BMI 30.0-34.9) Anxiety and depression Anaphylactic reaction to contrast media Urinary tract infection Pelvic inflammatory disease (PID) Endometriosis History of syncope Migraine History of chest pain Loss of balance Family history of thyroid cancer Fatigue Midline low back pain with right-sided sciatica Costochondritis Abnormal Holter exam Palpitations Bilateral lower extremity edema Neoplasm of uncertain behavior of skin of upper arm Encounter for administration of vaccine Bulky or enlarged uterus 10cm Ovarian cyst bilateral Severe dysmenorrhea Heavy menstrual bleeding Surgical History History of cholecystectomy H/O hysterectomy for benign disease Family History Other Cancer Diabetes Heart attack Social History Smoking Status: Never smoker alcohol intake: never substance use type: denies use current occupational status: unemployed Travel in the last 8 weeks: None household members: family and children housing: house current occupational exposures/hazards: No caffeine: Yes ROS Obtained: Yes Systems reviewed as appropriate & no additional complaints except as documented Physical Exam General General appearance: alert and in no apparent distress Head Head exam: atraumatic and normocephalic Eye Eye exam: Present PERRL ENT ENT exam: Present normal oropharynx and mucous membranes moist Neck Neck exam: Present normal inspection Chest Chest inspection: Present normal inspection and symmetric chest wall rise Respiratory Respiratory exam: Present normal lung sounds bilaterally; Absent respiratory distress Cardiovascular Cardiovascular exam: Present normal rhythm and tachycardia Abdominal Exam Abdominal exam: Present soft; Absent tenderness Extremities Exam Extremities exam: Present normal inspection Neurological Exam Neurological exam: Present alert and CN II-XII intact Psychiatric Psychiatric exam: Present normal affect Skin Skin exam: Present warm and dry Medical Decision Making Rodolfo Inquiry Pt receiving controlled substance: No Vital Signs: 09/30/23 18:19 09/30/23 19:47 09/30/23 19:48 Temperature 100.4 F H 99.6 F Temperature Source Oral Oral Pulse Rate 95 H 97 H Pulse Rate [Right] 110 H Respiratory Rate 18 18 18 Blood Pressure 139/81 117/83 Blood Pressure [Right Arm] 133/84 Blood Pressure Mean 100 93 Blood Pressure Mean [Right Arm] 100 02 Sat by Pulse Oximetry 100 100 100 Oxygen Delivery Method Room Air Room Air Room Air Lab Data Lab Results 09/30/23 18:30: WBC 7.7, RBC 4.80, Hgb 14.2, Hct 43.0, MCV 89.5, MCH 29.5, MCHC 33.0, RDW 13.4, Plt Count 250, MPV 9.2, Neut % (Auto) 73.2, Lymph % (Auto) 20.1, [place] % (Auto) 5.0, Eos % (Auto) 0.9, Baso % (Auto) 0.8, Neut # (Auto) 5.7, Lymph # (Auto) 1.6, [place] # (Auto) 0.4, Eos # (Auto) 0.1, Baso # (Auto) 0.1, D-Dimer 0.35, Sodium 140, Potassium 3.8, Chloride 101, Carbon Dioxide 28, Anion Gap 14.8, BUN 10, Creatinine 0.60, Estimated Creat Clear 156, Estimated GFR 112, Est GFR ( Amer) 136, Glucose 90, Calcium 9.6, Magnesium 1.9, Total Bilirubin 0.7, AST 89 H, ALT 88 H, Alkaline Phosphatase 61, Total Creatine Kinase 59, Total Protein 8.5 H D, Albumin 5.0, Globulin 3.5 H, Albumin/Globulin Ratio 1.4, TSH 0.77, Thyroxine (T4) 10.3, Serum HCG, Qual Negative 09/30/23 19:43: Urine Color Yellow, Urine Appearance Clear, Urine pH 7.5, Ur Specific [place] 1.015, Urine Protein Negative, Urine Glucose (UA) Negative, Urine Ketones Negative, Urine Blood Trace-i, Urine Nitrate Negative, Urine Bilirubin Negative, Urine Urobilinogen 0.2, Ur Leukocyte Esterase Negative, Urine RBC Occasional, Urine WBC None, Ur Squamous Epith Cells None, Urine Bacteria None 09/30/23 18:30 09/30/23 18:30 Orders (Tests/Meds): ED MEDICATIONS Discontinued Medications Generic Name Dose Route Start Last Admin Trade Name Freq PRN Reason Stop Dose Admin Lactated Ringer's 1,000 mls @ 999 mls/hr 09/30/23 18:42 09/30/23 18:47 Lactated Ringer's 1000 Ml Bag IV 09/30/23 19:42 999 mls/hr .Q1H1M ONE Administration Ondansetron HCl 4 mg 09/30/23 20:04 Ondansetron 4mg/2ml Vial IV 09/30/23 20:05 ONCE ONE ORDERS Category Date Time Status CXR --portable [XR chest portable] Stat Exams 09/30/23 18:42 Taken CBC w/Auto Diff [Complete Blood Count Auto Diff] Stat Lab 09/30/23 18:30 Completed CK [Creatine Kinase] Stat Lab 09/30/23 18:30 Completed CMP [Comprehensive Metabolic Panel] Stat Lab 09/30/23 18:30 Completed D-Dimer Stat Lab 09/30/23 18:30 Completed Full Resp Panel w/COVID ([facility]) Routine Lab 09/30/23 18:52 Received HCG Qualitative, Serum Stat Lab 09/30/23 18:30 Completed MG [Magnesium] Stat Lab 09/30/23 18:30 Completed T4 (Thyroxine) Stat Lab 09/30/23 18:30 Completed TSH [Thyroid Stimulating Hormone] Stat Lab 09/30/23 18:30 Completed UA [Urinalysis and Microscopic] Stat Lab 09/30/23 19:43 Completed EKG Request [ECG Request] Stat Y 09/30/23 19:01 Ordered ECG Data Tracing #1: Independently interpreted by me, rate is 89, rhythm is regular, axis normal, no ST elevation in anatomical contiguous leads, QTc 396. Medical Decision Narrative: In summary patient is a 38-year-old female past medical history described above who presents emergency department for evaluation of multiple complaints. Patient is hemodynamically stable nontoxic-appearing upon arrival, tachycardic, temperature 100.4 degrees. Differential diagnosis includes nonspecific viral syndrome, ACS, pulmonary embolism, hypothyroidism, among others. Workup will be conducted with hematologic labs, chest x-ray, EKG, troponin. Initial interventions include crystalloid bolus. Initial workup reviewed by me, no significant leukocytosis, no anemia, D-dimer excludes pulmonary embolism, no NATHALIE or critical electrolyte abnormalities, mild transaminitis which is persistent. TSH and T4 normal, non. Urinalysis interpreted by me and not consistent with infection. Per repeat evaluation patient remained hemodynamically stable. It is uncertain the exact etiology of all of her symptoms however it was felt that all emergent causes were ruled out at this time patient is appropriate for outpatient management. Patient will continue to follow-up on an outpatient basis. Critical Care Critical Care Time Critical Care Time: No
[2023-09-30] MEDS: LACTATED RINGERS 1000ML 1,000 ML 999 ML IV (18:47)
[2023-09-30 18:55] LABS: Basophils # 0.1 K/mm3 (0-0.2); Basophils % 0.8 % (0.1-2.0); Eosinophils # 0.1 K/mm3 (0.0-0.4); Eosinophils % 0.9 % (0.1-12.0); Hemoglobin 14.2 g/dL (12.2-16.2); Lymphocytes # 1.6 K/mm3 (0.7-4.5); Lymphocytes % 20.1 % (10-50); Mean Corpuscular Hemoglobin 29.5 pg (27.0-31.2); Mean Corpuscular Volume 89.5 fl (81-99); Mean Platelet Volume 9.2 fl (7.4-10.4); Monocytes # 0.4 K/mm3 (0.1-1.0); Neutrophils # 5.7 K/mm3 (1.8-7.8); Neutrophils % 73.2 % (37.0-80.0); Platelet Count 250 K/mm3 (142-424); Red Cell Distribution Width 13.4 % (11.5-17.5); White Blood Count 7.7 K/mm3 (4.8-10.8)
[2023-09-30 18:55] LABS: Adenovirus,PCR Not Detected (NotDetected); Coronavirus 229E Not Detected (NotDetected); Coronavirus NL63 Not Detected (NotDetected); Coronavirus OC43 Not Detected (NotDetected); Coronovirus HKU1,PCR Not Detected (NotDetected); Human Metapneumovirus Not Detected (NotDetected); Rhinovirus/Enterovirus Not Detected (NotDetected)
[2023-09-30 18:56] LABS: Bordetella Pertussis Not Detected (NotDetected); Chlamydophila Pneumoniae, PCR Not Detected (NotDetected); Coronavirus 19, PCR Not Detected (NotDetected); Influenza A, PCR Not Detected (NotDetected); Influenza AH1, 2009 Not Detected (NotDetected); Influenza AH1, PCR Not Detected (NotDetected); Influenza AH3,PCR Not Detected (NotDetected); Influenza B, PCR Not Detected (NotDetected); Mycoplasma Pneumoniae, PCR Not Detected (NotDetected); Parainfluenza 1, PCR Not Detected (NotDetected); Parainfluenza 2, PCR Not Detected (NotDetected); Parainfluenza 3, PCR Not Detected (NotDetected); Parainfluenza 4, PCR Not Detected (NotDetected); Respiratory Syncytial Virus Not Detected (NotDetected)
[2023-09-30 18:56] LABS: Alanine Aminotransferase 88 U/L (12-78); Albumin/Globulin Ratio 1.4 (1.1-1.8); Alkaline Phosphatase 61 U/L (38-126); Aspartate Amino Transferase 89 U/L (14-36); Bilirubin,Total 0.7 mg/dl (0.2-1.3); Blood Urea Nitrogen 10 mg/dl (7-17); Calcium 9.6 mg/dl (8.4-10.2); Carbon Dioxide 28 mmol/L (22.0-30.0); Chloride 101 mmol/L (98-107); Creatine Kinase 59 U/L (30-135); Creatinine Clearance Estimated 156 mL/min (50-200); Estimated Glomerular Filt Rate 112 ml/min (>60); GFR (African American) 136 ML/MIN (>60); Globulin 3.5 g/dL (1.3-3.2); Glucose 90 mg/dl (74-100); Magnesium 1.9 mg/dl (1.6-2.3); Sodium 140 mmol/L (136-145); Total Protein,Serum 8.5 g/dl (6.3-8.2)
[2023-09-30 18:57] LABS: HCG Qualitative, Serum Negative (Negative)
[2023-09-30 19:00] LABS: D-Dimer 0.35 ug/mL (0.0-0.5)
--- NOTE | 2023-09-30 19:01 | ECG_ITS ---
APPROVED REPORT Exam: Resting ECG HR:89 bpm ECG Measurements Heart Rate 89 AXES OH 164 P 59 QRSd 88 QRS 85 QT 350 T 25 QTc 396 Conclusion SINUS RHYTHM NORMAL ECG Electronically signed by : DAVI STAPLETON, 09/30/2023 21:42:31
[2023-09-30 19:47] VITALS: BP 139/81; PULSE 95; RESP 18; TEMP 37.6; O2SAT 100
[2023-09-30 19:48] VITALS: BP 117/83; PULSE 97; RESP 18; O2SAT 100
[2023-09-30 19:52] LABS: Microscopic, Urine URINE MICROSCOPIC (MICROSCOPIC)
[2023-09-30 19:53] LABS: Appearance,Urine CLEAR (Clear); Bilirubin,Urine Negative (Negative); Blood, Urine TRACE-I (Negative); Color,Urine YELLOW (Yellow); Glucose,Urine (UA) Negative (Negative); Ketones,Urine Negative (Negative); Leukocyte Esterase,Urine Negative (Negative); Nitrate,Urine Negative (Negative); PH,Urine 7.5 (5.0-8.5); Protein,Urine Negative (Negative); Specific Gravity, Urine 1.015 (1.005-1.030); Urobilinogen,Urine 0.2 EU/dl (0.2)
[2023-09-30] MEDS: ONDANSETRON 4MG/2ML VIAL 4 MG IV (20:00)
[2023-09-30 20:07] LABS: Anion Gap 14.8 mEq/L (5-15); Potassium 3.8 mmoL/L (3.5-5.1)
[2023-09-30 20:08] LABS: T4 (Thyroxine) 10.3 ug/dl (5.53-11.0); Thyroid Stimulating Hormone 0.77 uIU/mL (0.465-4.68)
[2023-09-30 20:17] LABS: RBC,Urine Occasional #/hpf (0-3)
[2023-09-30 20:30] VITALS: BP 119/80; PULSE 85; RESP 16; TEMP 37.4; O2SAT 100
== END 2023-09-30 20:32 | disposition home or self-care (01) ==
PROVIDERS: Emergency Provider Emergency Medicine; PCP Nurse Practitioner
DX: R07.89 Other chest pain (principal); R53.1 Weakness; R50.9 Fever, unspecified; R05.9 Cough, unspecified; M79.18 Myalgia, other site; K21.9 Gastro-esophageal reflux disease without esophagitis; I10 Essential (primary) hypertension; E03.9 Hypothyroidism, unspecified; F41.9 Anxiety disorder, unspecified; F33.9 Major depressive disorder, recurrent, unspecified
CPT/HCPCS: 71045; 80053; 81001; 82550; 83735; 84436; 84443; 84703; 85025; 85378; 87581; 87632; 87635; 87798; 93005; 96361; 96374; 99285; J2405

== ENCOUNTER 2023-10-02 17:43 | Outpatient (CLI) | payer OTHER, SELFPAY ==
[2023-10-05 07:14] LABS: H. pylori Stool Ag, EIA Negative (Negative)
== END 2023-10-02 23:59 | disposition home or self-care (01) ==
LOC: LAB.DROPOF 17:44
PROVIDERS: PCP Nurse Practitioner; Visit Provider Nurse Practitioner
DX: R53.1 Weakness (principal); R11.0 Nausea; R10.84 Generalized abdominal pain
CPT/HCPCS: 87086; 87338

== ENCOUNTER 2023-10-02 17:45 | Emergency (ER) | payer OTHER, SELFPAY ==
[2023-10-02 18:10] VITALS: BP 137/94; PULSE 102; RESP 18; TEMP 37.4; O2SAT 100; BMI 30.8
--- NOTE | 2023-10-02 18:11 | EXP.UTC ---
Discharge Plan Disposition Patient Disposition: Home, Self-Care Condition: Good Prescriptions Prescriptions: New promethazine-DM 6.25-15 mg/5 mL Syrup 5 ml PO Q6H PRN (Reason: Cough) Qty: 240 0RF methylprednisolone 4 mg Tablets,Dose Pack 4 mg PO DIRECTED 6 Days Qty: 21 0RF Rx Instructions: Take 1 pack as directed for 6 days ondansetron 4 mg Tablet,Disintegrating 4 mg PO Q8H PRN (Reason: Nausea) Qty: 12 0RF No Action omeprazole 40 mg capsule,delayed release(DR/EC) 40 mg PO DAILY Qty: 30 2RF Contrave 8-90 mg tablet extended release 2 tab PO BID Qty: 120 2RF sertraline 100 mg tablet 200 mg PO DAILY Qty: 180 1RF propranolol 10 mg tablet 10 mg PO BID melatonin 5 mg tablet 5 - 10 mg PO HS PRN levofloxacin 500 mg tablet 500 mg PO Q24H Qty: 10 0RF cyanocobalamin (vitamin B-12) 1,000 mcg tablet See Rx Instructions .ROUTE .COMPLEX Qty: 90 1RF Dose Instruction: TAKE 1 TABLET ORALLY ONCE DAILY Rx Instructions: TAKE 1 TABLET ORALLY ONCE DAILY cholecalciferol (vitamin D3) 125 mcg (5,000 unit) tablet 125 mcg PO DAILY Qty: 90 1RF albuterol sulfate 90 mcg/actuation HFA aerosol inhaler 2 puff INHALATION Q4-6H PRN (Reason: Wheezing or Shortness of Breath) Patient Comments: INHALE 2 PUFFS BY MOUTH EVERY 4 TO 6 HOURS NEEDED FOR WHEEZING OR SHORTNESS OF BREATH ondansetron 4 mg tablet,disintegrating 4 mg PO Q6H PRN (Reason: nausea and vomiting) Qty: 10 0RF Referrals Follow up/Referrals: Charley Chanel APRN [Primary Care Provider] - See instructions Activity Restrictions/Add. Instructions Additional Instructions/Restrictions: Drink plenty of fluids. Take tylenol or ibuprofen for pain or fever. Continue the levaquin (antibiotics) that your doctor started you on today. Start the new medications that we prescribed here. Follow up with your regular doctor within the next 48 hours. GO TO THE ER FOR ANY WORSENING SYMPTOMS The cough medication (promethazine dm) will make you drowsy, so don't drive or operate heavy machinery after taking it. Clinical Impressions Clinical Impression: Acute bronchitis, Sinusitis Instructions Patient Instructions: Sinusitis, DI for Sinusitis, Methylprednisolone Discharge ED Provider: Jerome Stratton [facility] [place] HPI General Stated complaint: cough, lung pain Time Seen by Provider: 10/02/23 18:11 Related Data Home Medications Medication Instructions Recorded Confirmed albuterol sulfate 90 mcg/actuation 2 puff inhalation Q4-6H PRN 01/31/23 10/02/23 aerosol inhaler Wheezing or Shortness of Breath melatonin 5 mg tablet 5 - 10 mg PO HS PRN 09/21/23 10/02/23 propranolol 10 mg tablet 10 mg PO BID 09/21/23 10/02/23 Previous Rx's Medication Instructions Recorded cyanocobalamin (vitamin B-12) See Rx Instructions .Route 04/24/23 1,000 mcg tablet .COMPLEX #90 tabs naltrexone 8 mg-bupropion 90 mg 2 tab PO BID #120 tabs 07/31/23 tablet,extended release (Contrave) sertraline 100 mg tablet 200 mg (2 x 100 mg) PO DAILY #180 07/31/23 tabs cholecalciferol (vitamin D3) 125 125 mcg PO DAILY #90 tabs 08/08/23 mcg (5,000 unit) tablet ondansetron 4 mg disintegrating 4 mg PO Q6H PRN nausea and 08/23/23 tablet vomiting #10 tabs omeprazole 40 mg capsule,delayed 40 mg PO DAILY #30 caps 09/04/23 release levofloxacin 500 mg tablet 500 mg PO Q24H #10 tabs 10/02/23 methylprednisolone 4 mg tablets in 4 mg PO DIRECTED 6 days #21 tabs 10/02/23 a dose pack ondansetron 4 mg disintegrating 4 mg PO Q8H PRN Nausea #12 tabs 10/02/23 tablet promethazine-DM 6.25 mg-15 mg/5 mL 5 ml PO Q6H PRN Cough #240 mL 10/02/23 oral syrup Allergies Allergy/AdvReac Type Severity Reaction Status Date / Time Iodinated Contrast Media Allergy Mild Rash Verified 10/02/23 18:17 [facility] Disclaimer: The information contained in this section may have been updated after the patient was seen, as this information can be updated by other users. Medical History GERD (gastroesophageal reflux disease) Cellulitis of left thigh Memory changes Myoclonic jerking while sleeping Essential hypertension Sleep apnea Mild New daily persistent headache Tremor of right hand Hyperthyroidism Thyromegaly She has a 2 mm nodule which does not appear to be abnormal based on ultrasonography Acute right-sided low back pain with right-sided sciatica Obesity (BMI 30.0-34.9) Anxiety and depression Anaphylactic reaction to contrast media Urinary tract infection Pelvic inflammatory disease (PID) Endometriosis History of syncope Migraine History of chest pain Loss of balance Family history of thyroid cancer Fatigue Midline low back pain with right-sided sciatica Costochondritis Abnormal Holter exam Palpitations Bilateral lower extremity edema Neoplasm of uncertain behavior of skin of upper arm Encounter for administration of vaccine Bulky or enlarged uterus 10cm Ovarian cyst bilateral Severe dysmenorrhea Heavy menstrual bleeding Surgical History History of cholecystectomy H/O hysterectomy for benign disease Family History Other Cancer Diabetes Heart attack Social History Smoking Status: Never smoker alcohol intake: never substance use type: denies use current occupational status: unemployed Travel in the last 8 weeks: None household members: family and children housing: house current occupational exposures/hazards: No caffeine: Yes ROS Obtained: Yes All systems reviewed & no additional complaints except as documented Constitutional Constitutional: Reports poor appetite Eyes Eyes: Reports system reviewed and no additional complaints, except as documented ENT Ears, Nose, Mouth, and Throat: Reports as per HPI Cardiovascular Cardiovascular: Reports system reviewed and no additional complaints, except as documented and Denies chest pain Respiratory Respiratory: Denies shortness of breath, Denies chest congestion, Reports cough, Denies stridor and Denies wheezing Gastrointestinal Gastrointestingal: Reports system reviewed and no additional complaints, except as documented; Denies abdominal pain, diarrhea or vomiting Musculoskeletal Musculoskeletal: Reports system reviewed and no additional complaints, except as documented and Denies arthralgias Integumentary/Breasts Skin/Breast: Reports system reviewed and no additional complaints, except as documented and Denies rash Neurologic Neurologic: Denies paresthesias Allergic/Immunologic Allergic/Immunologic: Denies wheezing Physical Exam General General appearance: alert and in no apparent distress Head Head exam: atraumatic, normocephalic and normal inspection Eye Eye exam: Present normal appearance, PERRL and EOMI ENT ENT exam: Present mucous membranes moist and normal external ear exam Expanded ENT Exam TM/Canal exam: Bilateral TM: erythema and bulging Nose exam: Absent sinus tenderness Mouth exam: Present normal external inspection; Absent drooling Teeth exam: Present normal inspection Throat exam: Present tonsillar erythema, tonsillomegaly and tonsillar exudate Neck Neck exam: Present normal inspection, full ROM and trachea midline; Absent tenderness, meningismus or lymphadenopathy Chest Chest inspection: Present normal inspection and symmetric chest wall rise; Absent tenderness Respiratory Respiratory exam: Present normal lung sounds bilaterally; Absent respiratory distress, wheezes, stridor or accessory muscle use Cardiovascular Cardiovascular exam: Present regular rate and normal rhythm; Absent systolic murmur or diastolic murmur Abdominal Exam Abdominal exam: Present soft and normal bowel sounds; Absent distention, tenderness, guarding, rebound or rigidity Extremities Exam Extremities exam: Present normal inspection and normal capillary refill; Absent calf tenderness Back Exam Back exam: Present normal inspection and full ROM; Absent tenderness, CVA tenderness (R) or CVA tenderness (L) Neurological Exam Neurological exam: Present alert, oriented X3 and CN II-XII intact Psychiatric Psychiatric exam: Present normal affect and normal mood Skin Skin exam: Present warm, dry, intact and normal color Medical Decision Making Medical Records Medical records reviewed: No I reviewed the patient's medical records. Rodolfo Inquiry Pt receiving controlled substance: No Lab Data Lab results reviewed: Yes I reviewed the patient's lab results.
[2023-10-02 18:57] VITALS: BP 137/94; PULSE 102; RESP 18; TEMP 37.4; O2SAT 100
== END 2023-10-02 18:57 | disposition home or self-care (01) ==
PROVIDERS: Emergency Provider Nurse Practitioner Family; PCP Nurse Practitioner
DX: J20.9 Acute bronchitis, unspecified (principal); J01.90 Acute sinusitis, unspecified; R05.9 Cough, unspecified
CPT/HCPCS: 99212; 99214; G0463

== ENCOUNTER 2023-10-23 10:50 | Outpatient (CLI) | payer OTHER, SELFPAY | END 2023-10-23 23:59 | disposition home or self-care (01) | LOC: LAB.DROPOF 10-25 10:50 | PROVIDERS: PCP Nurse Practitioner; Visit Provider Nurse Practitioner | DX: R31.9 Hematuria, unspecified (principal) | CPT/HCPCS: 87086 ==

== ENCOUNTER 2023-10-25 11:13 | Outpatient (CLI) | payer OTHER, SELFPAY | END 2023-10-25 23:59 | disposition home or self-care (01) | LOC: LAB.DROPOF 10-26 11:13 | PROVIDERS: PCP Nurse Practitioner; Visit Provider Nurse Practitioner | DX: R31.9 Hematuria, unspecified (principal) | CPT/HCPCS: 87086 ==

== ENCOUNTER 2023-10-27 14:18 | Outpatient (CLI) | payer OTHER, SELFPAY ==
--- NOTE | 2023-10-27 14:19 | US_ITS ---
FINAL REPORT TECHNIQUE: Ultrasound images of the kidneys and bladder were obtained. CLINICAL HISTORY: hematuria FINDINGS: The right kidney measures 12 cm in length. It is normal in echogenicity. There is no hydronephrosis. The left kidney measures 11.1 cm in length. It is normal in echogenicity. There is no hydronephrosis. There is fatty infiltration of the liver. The spleen is unremarkable. IMPRESSION: Fatty liver. Reviewed, Interpreted and Dictated by Syd Singh III, MD Transcribed by Kathia Franco Authenticated and [facility]
== END 2023-10-27 23:59 | disposition home or self-care (01) ==
LOC: RAD 14:18
PROVIDERS: PCP Nurse Practitioner; Visit Provider Nurse Practitioner
DX: R31.9 Hematuria, unspecified (principal)
CPT/HCPCS: 76770

== ENCOUNTER 2023-12-22 13:28 | Emergency (ER) | payer OTHER, SELFPAY ==
[2023-12-22 13:31] VITALS: BP 145/100; PULSE 99; RESP 18; TEMP 36.9; O2SAT 99; BMI 30.9
[2023-12-22 14:00] VITALS: BP 121/72; PULSE 83; O2SAT 99
[2023-12-22] MEDS: predniSONE 20MG TAB 60 MG PO (14:02)
[2023-12-22] MEDS: FAMOTIDINE 20MG TABLET 20 MG PO (14:02)
[2023-12-22] MEDS: LORATADINE 10MG TABLET 10 MG PO (14:02)
[2023-12-22] MEDS: diphenhydrAMINE 50MG CAPSULE 50 MG PO (14:02)
[2023-12-22 14:30] VITALS: BP 121/77; PULSE 84; O2SAT 99
--- NOTE | 2023-12-22 14:31 | HMH.EDGENADL ---
Discharge Plan Disposition Patient Disposition: Home, Self-Care Prescriptions Prescriptions: New prednisone 20 mg tablet 40 mg PO DAILY 5 Days Qty: 10 0RF No Action omeprazole 40 mg capsule,delayed release(DR/EC) 40 mg PO DAILY Qty: 30 2RF Contrave 8-90 mg tablet extended release 2 tab PO BID Qty: 120 2RF sertraline 100 mg tablet 200 mg PO DAILY Qty: 180 1RF propranolol 10 mg tablet 10 mg PO BID melatonin 5 mg tablet 5 - 10 mg PO HS PRN levofloxacin 500 mg tablet 500 mg PO Q24H Qty: 10 0RF cyanocobalamin (vitamin B-12) 1,000 mcg tablet See Rx Instructions .ROUTE .COMPLEX Qty: 90 1RF Dose Instruction: TAKE 1 TABLET ORALLY ONCE DAILY Rx Instructions: TAKE 1 TABLET ORALLY ONCE DAILY cholecalciferol (vitamin D3) 125 mcg (5,000 unit) tablet 125 mcg PO DAILY Qty: 90 1RF albuterol sulfate 90 mcg/actuation HFA aerosol inhaler 2 puff INHALATION Q4-6H PRN (Reason: Wheezing or Shortness of Breath) Patient Comments: INHALE 2 PUFFS BY MOUTH EVERY 4 TO 6 HOURS NEEDED FOR WHEEZING OR SHORTNESS OF BREATH ondansetron 4 mg Tablet,Disintegrating 4 mg PO Q8H PRN (Reason: Nausea) Qty: 12 0RF Referrals Follow up/Referrals: Charley Chanel APRN [Primary Care Provider] - See instructions Activity Restrictions/Add. Instructions Additional Instructions/Restrictions: Call your family doctor to establish care for this visit to the emergency department and schedule follow-up within 48 hours to ensure improvement. If you have any worsening of your condition or any other concerning signs or symptoms, return to the emergency department or your primary care doctor for further evaluation. Clinical Impressions Clinical Impression: Allergic reaction Qualifiers: Encounter type: initial encounter Qualified Code(s): T78.40XA - Allergy, unspecified, initial encounter Print Language Print Language: Faroese Discharge ED Provider: Justo Ramos General Adult HPI General Chief complaint: Allergic Reaction Stated complaint: Poss allergic reac to nl injec. tongue swell, rash Time Seen by Provider: 12/22/23 13:44 Mode of Arrival: Ambulatory Source of Information: Patient Limitations: No Limitations Description of Symptoms (Recalled from ER Triage Doc. by RN): c/o scratchy throat and itching all over after getting two doses of injection medicine at her stress test this morning. PT reports that she had the first dose around 0830 and 1100. pt was able to eat chicken prior to arrival with no issues. History of Present Illness HPI narrative: Please note that above description of symptoms, in this electronic medical record under categorization of recalled from ER triage doctor by RN are reflective of an initial nursing assessment, however, is not reflective of my full history and physical exam that was personally taken and clarified. Consequentially, this preceding description of symptoms, which may include the patient's categorized chief complaint in the EMR, do not reflect my personal clinical impression, and the ultimate description of history of present illness and patient stated complaints should be deferred to this section of the note. Unless stated otherwise or congruent with this section of the note, additional signs, symptoms, or incongruence should be interpreted as inaccurate with my clinical impression. Related Data Home Medications ?Medication ?Instructions ?Recorded ?Confirmed albuterol sulfate 90 mcg/actuation 2 puff inhalation Q4-6H PRN 01/31/23 10/23/23 aerosol inhaler Wheezing or Shortness of Breath melatonin 5 mg tablet 5 - 10 mg PO HS PRN 09/21/23 10/23/23 propranolol 10 mg tablet 10 mg PO BID 09/21/23 10/23/23 Previous Rx's ?Medication ?Instructions ?Recorded cyanocobalamin (vitamin B-12) See Rx Instructions .Route 04/24/23 1,000 mcg tablet .COMPLEX #90 tabs naltrexone 8 mg-bupropion 90 mg 2 tab PO BID #120 tabs 07/31/23 tablet,extended release (Contrave) sertraline 100 mg tablet 200 mg (2 x 100 mg) PO DAILY #180 07/31/23 tabs cholecalciferol (vitamin D3) 125 125 mcg PO DAILY #90 tabs 08/08/23 mcg (5,000 unit) tablet omeprazole 40 mg capsule,delayed 40 mg PO DAILY #30 caps 09/04/23 release levofloxacin 500 mg tablet 500 mg PO Q24H #10 tabs 10/02/23 ondansetron 4 mg disintegrating 4 mg PO Q8H PRN Nausea #12 tabs 10/02/23 tablet prednisone 20 mg tablet 40 mg (2 x 20 mg) PO DAILY 5 days 12/22/23 #10 tabs Allergies Allergy/AdvReac Type Severity Reaction Status Date / Time Iodinated Contrast Media Allergy Mild Rash Verified 10/23/23 08:46 [facility] Disclaimer: The information contained in this section may have been updated after the patient was seen, as this information can be updated by other users. Medical History (Updated 12/22/23 @ 15:09 by Justo Ramos MD) Hematuria GERD (gastroesophageal reflux disease) Cellulitis of left thigh Memory changes Myoclonic jerking while sleeping Essential hypertension Sleep apnea New daily persistent headache Tremor of right hand Hyperthyroidism Thyromegaly Acute right-sided low back pain with right-sided sciatica Obesity (BMI 30.0-34.9) Anxiety and depression Anaphylactic reaction to contrast media Urinary tract infection Pelvic inflammatory disease (PID) Endometriosis History of syncope Migraine History of chest pain Loss of balance Family history of thyroid cancer Fatigue Midline low back pain with right-sided sciatica Costochondritis Abnormal Holter exam Palpitations Bilateral lower extremity edema Neoplasm of uncertain behavior of skin of upper arm Encounter for administration of vaccine Bulky or enlarged uterus Ovarian cyst Severe dysmenorrhea Heavy menstrual bleeding Surgical History History of cholecystectomy H/O hysterectomy for benign disease Family History Other Cancer Diabetes Heart attack Social History Smoking Status: Never smoker alcohol intake: never substance use type: denies use current occupational status: unemployed Travel in the last 8 weeks: None household members: family and children housing: house current occupational exposures/hazards: No caffeine: Yes ROS Obtained: Yes All systems reviewed & no additional complaints except as documented Physical Exam General General appearance: alert Head Head exam: atraumatic and normocephalic Eye Eye exam: Present normal appearance, PERRL and EOMI Neck Neck exam: Present normal inspection, full ROM and trachea midline Respiratory Respiratory exam: Absent respiratory distress, wheezes, stridor, accessory muscle use or prolonged expiratory phase Cardiovascular Cardiovascular exam: Present other (Pulses equal symmetric in upper and lower extremities) Abdominal Exam Abdominal exam: Present soft; Absent distention, tenderness or pulsatile mass Extremities Exam Extremities exam: Absent edema Neurological Exam Neurological exam: Present alert, oriented X3 and CN II-XII intact; Absent motor sensory deficit Skin Skin exam: Present warm and dry; Absent diaphoresis or erythema Medical Decision Making Medical Records Medical records reviewed: Yes I reviewed the patient's medical records. Rodolfo Inquiry Pt receiving controlled substance: No Rodolfo was queried for this patient: No Vital Signs: 12/22/23 13:31 Temperature 98.4 F Temperature Source Oral Pulse Rate [Left Radial] 99 H Respiratory Rate 18 Blood Pressure [Right Arm] 145/100 H Blood Pressure Mean [Right Arm] 115 Blood Pressure Source [Right Arm] Automatic Cuff Blood Pressure Position [Right Arm] Sitting 02 Sat by Pulse Oximetry 99 Oxygen Delivery Method Room Air Orders (Tests/Meds): ED MEDICATIONS Discontinued Medications Generic Name Dose Route Start Last Admin Trade Name Freq PRN Reason Stop Dose Admin Diphenhydramine HCl 50 mg 12/22/23 13:51 12/22/23 14:02 Diphenhydramine 50mg Capsule PO 12/22/23 13:52 50 mg HS ONE Administration Famotidine 20 mg 12/22/23 13:51 12/22/23 14:02 Famotidine 20mg Tablet PO 12/22/23 13:52 20 mg ONCE ONE Administration Loratadine 10 mg 12/22/23 13:51 12/22/23 14:02 Loratadine 10mg Tablet PO 12/22/23 13:52 10 mg DAILY ONE Administration Prednisone 60 mg 12/22/23 13:51 12/22/23 14:02 Prednisone 20mg Tab PO 12/22/23 13:52 60 mg ONCE ONE Administration Medical Decision Narrative: 38-year-old female history of allergy presenting with concern for allergic reaction. Patient had nuclear med stress test earlier. Her, started having itching on her back and her right arm. Throat felt tingly and weird, but not necessarily swollen. No wheezing, cough, nausea, vomiting, diaphoresis, rash, or any other concerns. Came out of concern for allergic reaction given previous history of significant allergic reaction in the setting of IV contrast. History obtained with patient. On arrival, patient very well-appearing, hypertensive, tachycardic, but anxious appearing. Lungs are clear to auscultation anterior and posteriorly, cardiac exam normal, abdomen soft, nontender, very well-appearing. No rash. Differential includes illness anxiety disorder, allergic reaction, among other. patient given meds, with the exception of epinephrine, monitored for about an hour given last dose of medicine was about 4 hours prior to this. No return of allergic reaction symptoms, so deemed appropriate for outpatient management. Sent home with steroid. Because patient at baseline without signs or symptoms of clinical decompensation, deemed appropriate for discharge. Results were relayed to patient who voiced understanding and were agreeable to outpatient management and follow up. I discussed my clinical impression with patient and answered all questions. At this time, the evidence for any other entities in the differential is insufficient to warrant any further testing or ED observation. This was explained as well. Advisory was given that persistent or worsening symptoms require further evaluation. I confirmed the understanding of this discussion. Solution Designer disclaimer Much of this encounter note is an electronic special education secretary spoken language to printed text. Electronic special education secretary of the spoken language may permit errors. Although I have reviewed the note, some errors may still exist. Critical Care Critical Care Time Critical Care Time: No
[2023-12-22 15:33] VITALS: BP 122/67; PULSE 88; RESP 18; TEMP 36.9; O2SAT 98
== END 2023-12-22 15:35 | disposition home or self-care (01) ==
PROVIDERS: Emergency Provider Emergency Medicine; PCP Nurse Practitioner
DX: T78.40XA Allergy, unspecified, initial encounter (principal)
CPT/HCPCS: 99283

== ENCOUNTER 2024-01-16 20:07 | Emergency (ER) | payer OTHER, SELFPAY ==
--- NOTE | 2024-01-16 20:11 | HMH.EDGENADL ---
Discharge Plan Disposition Patient Disposition: Home, Self-Care Condition: Good Prescriptions Prescriptions: No Action omeprazole 40 mg capsule,delayed release(DR/EC) 40 mg PO DAILY Qty: 30 2RF Contrave 8-90 mg tablet extended release 2 tab PO BID Qty: 120 2RF sertraline 100 mg tablet 200 mg PO DAILY Qty: 180 1RF propranolol 10 mg tablet 10 mg PO BID melatonin 5 mg tablet 5 - 10 mg PO HS PRN levofloxacin 500 mg tablet 500 mg PO Q24H Qty: 10 0RF cyanocobalamin (vitamin B-12) 1,000 mcg tablet See Rx Instructions .ROUTE .COMPLEX Qty: 90 1RF Dose Instruction: TAKE 1 TABLET ORALLY ONCE DAILY Rx Instructions: TAKE 1 TABLET ORALLY ONCE DAILY cholecalciferol (vitamin D3) 125 mcg (5,000 unit) tablet 125 mcg PO DAILY Qty: 90 1RF albuterol sulfate 90 mcg/actuation HFA aerosol inhaler 2 puff INHALATION Q4-6H PRN (Reason: Wheezing or Shortness of Breath) Patient Comments: INHALE 2 PUFFS BY MOUTH EVERY 4 TO 6 HOURS NEEDED FOR WHEEZING OR SHORTNESS OF BREATH ondansetron 4 mg Tablet,Disintegrating 4 mg PO Q8H PRN (Reason: Nausea) Qty: 12 0RF prednisone 20 mg tablet 40 mg PO DAILY 5 Days Qty: 10 0RF Referrals Follow up/Referrals: Charley Chanel APRN [Primary Care Provider] - See instructions Joy Turpin DPM [Staff Physician] - See instructions Activity Restrictions/Add. Instructions Additional Instructions/Restrictions: You may continue rest ice compression elevation. I have referred you to podiatry if your symptoms do not improve please call make an appointment. Return to the ER for any worsening signs or symptoms as needed. Clinical Impressions Clinical Impression: Right ankle sprain Qualifiers: Encounter type: initial encounter Involved ligament of ankle: unspecified ligament Qualified Code(s): S93.401A - Sprain of unspecified ligament of right ankle, initial encounter Instructions Patient Instructions: DI for Ankle Sprain Print Language Print Language: Palestinian Discharge ED Provider: Justo Ramos General Adult HPI <SINDY Chaparro - Last Filed: 01/16/24 20:54> General Chief complaint: Extremity Injury, Lower Stated complaint: AO08/27@1900 RT ankle inj Time Seen by Provider: 01/16/24 20:10 History of Present Illness HPI narrative: Patient presents for evaluation of a right ankle injury. Patient stepped in a hole in her yard and felt a pop. She was able to bear weight but it is extensively painful according to her. She denies any numbness or tingling. Denies injury to any other body part. Related Data Home Medications ?Medication ?Instructions ?Recorded ?Confirmed albuterol sulfate 90 mcg/actuation 2 puff inhalation Q4-6H PRN 01/31/23 10/23/23 aerosol inhaler Wheezing or Shortness of Breath melatonin 5 mg tablet 5 - 10 mg PO HS PRN 09/21/23 10/23/23 propranolol 10 mg tablet 10 mg PO BID 09/21/23 10/23/23 Previous Rx's ?Medication ?Instructions ?Recorded cyanocobalamin (vitamin B-12) See Rx Instructions .Route 04/24/23 1,000 mcg tablet .COMPLEX #90 tabs naltrexone 8 mg-bupropion 90 mg 2 tab PO BID #120 tabs 07/31/23 tablet,extended release (Contrave) sertraline 100 mg tablet 200 mg (2 x 100 mg) PO DAILY #180 07/31/23 tabs cholecalciferol (vitamin D3) 125 125 mcg PO DAILY #90 tabs 08/08/23 mcg (5,000 unit) tablet omeprazole 40 mg capsule,delayed 40 mg PO DAILY #30 caps 09/04/23 release levofloxacin 500 mg tablet 500 mg PO Q24H #10 tabs 10/02/23 ondansetron 4 mg disintegrating 4 mg PO Q8H PRN Nausea #12 tabs 10/02/23 tablet prednisone 20 mg tablet 40 mg (2 x 20 mg) PO DAILY 5 days 12/22/23 #10 tabs Allergies Allergy/AdvReac Type Severity Reaction Status Date / Time Iodinated Contrast Media Allergy Mild Rash Verified 10/23/23 08:46 [facility] <SINDY Chaparro - Last Filed: 01/16/24 20:54> [facility] Disclaimer: The information contained in this section may have been updated after the patient was seen,
--- NOTE | 2024-01-16 20:13 | XR_ITS ---
PROCEDURE INFORMATION: Exam: XR Right Ankle Exam date and time: 01/16/2024 8:14 PM Age: 38 years old Clinical indication: Injury or trauma; Other: Stepped in a hole; Sprain or strain; Lower leg and ankle and foot; Right TECHNIQUE: Imaging protocol: Radiologic exam of the right ankle. Views: 3 or more views. COMPARISON: CR XR FOOT RT 2V 01/16/2024 8:14 PM FINDINGS: Bones/joints: Normal. Soft tissues: Normal. IMPRESSION: No acute findings.
--- NOTE | 2024-01-16 20:13 | XR_ITS ---
PROCEDURE INFORMATION: Exam: XR Right Foot Exam date and time: 01/16/2024 8:14 PM Age: 38 years old Clinical indication: Injury or trauma; Other: Stepped in hole; Sprain or strain; Lower leg and ankle and foot; Right; Additional info: Stepped in a hole TECHNIQUE: Imaging protocol: Radiologic exam of the right foot. Views: 1 or 2 views. COMPARISON: CR XR ANKLE RT MIN 3V 01/16/2024 8:14 PM FINDINGS: Bones/joints: Normal. Soft tissues: Normal. IMPRESSION: No acute findings.
--- NOTE | 2024-01-16 20:13 | XR_ITS ---
PROCEDURE INFORMATION: Exam: XR Right Tibia and Fibula Exam date and time: 01/16/2024 8:14 PM Age: 38 years old Clinical indication: Injury or trauma; Other: Stepped in a hole; Sprain or strain; Lower leg and ankle and foot; Right TECHNIQUE: Imaging protocol: Radiologic exam of the right tibia and fibula. Views: 2 views. COMPARISON: CR XR ANKLE RT MIN 3V 01/16/2024 8:14 PM FINDINGS: Bones/joints: Normal. Soft tissues: Normal. IMPRESSION: No acute findings.
[2024-01-16 20:14] VITALS: BP 144/79; PULSE 89; RESP 16; TEMP 36.9; O2SAT 98; BMI 30.9
--- NOTE | 2024-01-16 20:18 | PC.NURSE ---
RAD AT BS
[2024-01-16 20:56] VITALS: BP 121/77; PULSE 85; RESP 16; TEMP 36.9
[2024-01-16 21:00] VITALS: BP 121/77; PULSE 77; RESP 18; TEMP 36.5; O2SAT 100
== END 2024-01-16 21:01 | disposition home or self-care (01) ==
PROVIDERS: Emergency Provider Emergency Medicine; PCP Nurse Practitioner
DX: S93.401A Sprain of unspecified ligament of right ankle, initial encounter (principal); M25.571 Pain in right ankle and joints of right foot; W18.42XA Slipping, tripping and stumbling without falling due to stepping into hole or opening, initial encounter
CPT/HCPCS: 73590; 73610; 73620; 99283

== ENCOUNTER 2024-02-29 16:00 | Outpatient (CLI) | payer OTHER, SELFPAY ==
[2024-02-29 19:03] LABS: Alanine Aminotransferase 45 U/L (12-78); Albumin Level 4.4 g/dl (3.5-5.0); Albumin/Globulin Ratio 1.6 (1.1-1.8); Alkaline Phosphatase 67 U/L (38-126); Anion Gap 6.9 mEq/L (5-15); Aspartate Amino Transferase 39 U/L (14-36); Bilirubin,Total 0.7 mg/dl (0.2-1.3); Blood Urea Nitrogen 14 mg/dl (7-17); Calcium 9.4 mg/dl (8.4-10.2); Carbon Dioxide 26 mmol/L (22.0-30.0); Chloride 108 mmol/L (98-107); Chol/HDL Ratio 4.9 (1-3.5); Cholesterol 217 mg/dl (140-200); Estimated Glomerular Filt Rate 112 ml/min (>60); GFR (African American) 136 ML/MIN (>60); Globulin 2.8 g/dL (1.3-3.2); Glucose 91 mg/dl (74-100); HDL Cholesterol 44 mg/dl (40-60); Potassium 3.9 mmoL/L (3.5-5.1); Sodium 137 mmol/L (136-145); Total Protein,Serum 7.2 g/dl (6.3-8.2); Triglycerides 259 mg/dl (30-150); VLDL Cholesterol 52 mg/dL (0-40)
[2024-02-29 19:09] LABS: Hemoglobin A1C 5.3 % (4.0-6.0)
[2024-02-29 19:15] LABS: Direct LDL Cholesterol 131.51 mg/dL (100-129)
[2024-02-29 19:20] LABS: 25-OH Vitamin D, Total 16.4 ng/mL (30-100)
[2024-02-29 19:53] LABS: Vitamin B12 366 pg/mL (239-931)
== END 2024-02-29 23:59 | disposition home or self-care (01) ==
LOC: LAB.DROPOF 03-01 09:52
PROVIDERS: PCP Nurse Practitioner; Visit Provider Nurse Practitioner
DX: R31.9 Hematuria, unspecified (principal); R60.0 Localized edema; E66.9 Obesity, unspecified; Z68.30 Body mass index [BMI] 30.0-30.9, adult
CPT/HCPCS: 80053; 80061; 82306; 82607; 83036; 87086

== ENCOUNTER 2024-04-01 09:00 | Outpatient (CLI) | payer BC, OTHER, SELFPAY ==
[2024-04-01 19:57] LABS: Alanine Aminotransferase 52 U/L (12-78); Albumin Level 4.7 g/dl (3.5-5.0); Albumin/Globulin Ratio 1.6 (1.1-1.8); Alkaline Phosphatase 61 U/L (38-126); Aspartate Amino Transferase 41 U/L (14-36); Bilirubin,Total 0.8 mg/dl (0.2-1.3); Blood Urea Nitrogen 11 mg/dl (7-17); Calcium 9.5 mg/dl (8.4-10.2); Carbon Dioxide 25 mmol/L (22.0-30.0); Chloride 106 mmol/L (98-107); Estimated Glomerular Filt Rate 94 ml/min (>60); GFR (African American) 114 ML/MIN (>60); Globulin 2.9 g/dL (1.3-3.2); Glucose 94 mg/dl (74-100); Sodium 141 mmol/L (136-145); Total Protein,Serum 7.6 g/dl (6.3-8.2)
[2024-04-01 20:01] LABS: HIV (1&2) Antibody Rapid NONREACTIVE (NONREACTIVE)
[2024-04-01 20:26] LABS: Free T4 (Free Thyroxine) 1.23 ng/dl (0.78-2.19)
[2024-04-01 21:48] LABS: Thyroid Stimulating Hormone 0.94 uIU/mL (0.465-4.68)
[2024-04-03 08:21] LABS: HCV Ab Non Reactive (Non Reactive)
== END 2024-04-01 23:59 | disposition home or self-care (01) ==
LOC: LAB.DROPOF 04-02 09:19
PROVIDERS: PCP Nurse Practitioner; Visit Provider Nurse Practitioner
DX: R60.0 Localized edema (principal); E66.9 Obesity, unspecified; R31.9 Hematuria, unspecified; Z11.59 Encounter for screening for other viral diseases; L65.9 Nonscarring hair loss, unspecified; Z11.4 Encounter for screening for human immunodeficiency virus [HIV]
CPT/HCPCS: 80053; 84439; 84443; 86803; 87086; 87389

== ENCOUNTER 2024-08-05 11:20 | Outpatient (CLI) | payer OTHER, SELFPAY ==
[2024-08-05 19:17] LABS: Basophils % 0.4 % (0.1-2.0); Eosinophils # 0.1 K/mm3 (0.0-0.4); Eosinophils % 1.1 % (0.1-12.0); Hematocrit 43.6 % (37.0-47.0); Hemoglobin 14.7 g/dL (12.2-16.2); Lymphocytes # 1.8 K/mm3 (0.7-4.5); Lymphocytes % 21.9 % (10-50); Mean Corpuscular HGB Conc 33.7 g/dL (31.8-35.4); Mean Corpuscular Hemoglobin 29.9 pg (27.0-31.2); Mean Corpuscular Volume 88.6 fl (81-99); Mean Platelet Volume 11.7 fl (7.4-10.4); Monocytes # 0.3 K/mm3 (0.1-1.0); Monocytes % 3.6 % (1.7-9.3); Neutrophils % 72.9 % (37.0-80.0); Platelet Count 283 K/mm3 (142-424); Red Blood Count 4.92 M/mm3 (4.20-5.40); Red Cell Distribution Width 12.4 % (11.5-17.5); White Blood Count 8.3 K/mm3 (4.8-10.8)
[2024-08-05 20:28] LABS: Microalbumin/Creatinine Ratio 7.1
[2024-08-05 20:29] LABS: Alanine Aminotransferase 46 U/L (12-78); Alkaline Phosphatase 61 U/L (38-126); Anion Gap 11.3 mEq/L (5-15); Aspartate Amino Transferase 36 U/L (14-36); Bilirubin,Total 0.5 mg/dl (0.2-1.3); Blood Urea Nitrogen 12 mg/dl (7-17); Calcium 9.6 mg/dl (8.4-10.2); Carbon Dioxide 30 mmol/L (22.0-30.0); Chloride 102 mmol/L (98-107); Cholesterol 180 mg/dl (140-200); Estimated Glomerular Filt Rate 94 ml/min (>60); GFR (African American) 114 ML/MIN (>60); Globulin 2.5 g/dL (1.3-3.2); Glucose 91 mg/dl (74-100); HDL Cholesterol 45 mg/dl (40-60); Potassium 4.3 mmoL/L (3.5-5.1); Sodium 139 mmol/L (136-145); Total Protein,Serum 7.5 g/dl (6.3-8.2); Triglycerides 180 mg/dl (30-150); VLDL Cholesterol 36 mg/dL (0-40)
[2024-08-05 20:31] LABS: Creatinine,Urine Random 286 mg/dL (Not Estab.)
[2024-08-05 20:40] LABS: Direct LDL Cholesterol 94.39 mg/dL (100-129)
[2024-08-05 20:56] LABS: 25-OH Vitamin D, Total 27.5 ng/mL (30-100)
[2024-08-05 21:12] LABS: Thyroid Stimulating Hormone 0.41 uIU/mL (0.465-4.68)
[2024-08-05 21:31] LABS: Hemoglobin A1C 5.1 % (4.0-6.0)
[2024-08-05 21:32] LABS: Vitamin B12 372 pg/mL (239-931)
== END 2024-08-05 23:59 | disposition home or self-care (01) ==
LOC: LAB.DROPOF 08-07 07:39
PROVIDERS: PCP Nurse Practitioner; Visit Provider Nurse Practitioner
DX: F41.9 Anxiety disorder, unspecified (principal); F32.A Depression, unspecified; E66.811 Obesity, class 1; I10 Essential (primary) hypertension; E05.90 Thyrotoxicosis, unspecified without thyrotoxic crisis or storm; E55.9 Vitamin D deficiency, unspecified
CPT/HCPCS: 80053; 80061; 82043; 82306; 82570; 82607; 83036; 84443; 85025

== ENCOUNTER 2024-12-14 13:15 | Emergency (ER) | payer OTHER, SELFPAY ==
--- OUTSIDE RECORDS SUMMARY | 2020-06-02 06:45 | XMS_ITS | Continuity of Care Document ---
Author Organization [facility] Address [address] [place] [address] Phone Care Team Providers Care Horse Shoer Name Role Phone Carlos Moreno MD Unavailable Unavailable Allergies, Adverse Reactions, Alerts Substance Reaction Status Criticality No Known Allergies Active No Inform ation Medications Medication Instructions Dosage Effective Dates (start - stop) Status Comments TobraDex 0.3 %-0.1 % eye drops,suspension instill 1 drop by ophthalmic route 2 times every week in the left eye 1 drop - Active Vitamin D3 10 mcg (400 unit) capsule take 1 by oral route every day 1 - Active Procedures Procedure Date OFFICE/OUTPATIENT VISIT, NEW Advance Directives Directive Yes / No Effective Date File Name No Information Encounters Encounter Description Practice Location Reason(s) For Visit Diagnoses Date Provider Providers Copied on Encounter OFFICE/OUTPAT IENT VISIT, [facility] , [address] [place], [address], tel:[phone] [facility] Corneal consult (chief complaint) Red eye associated with contact lensPresence of spectacles and contact lenses Josh Gonzalez. [address] [place] [address], [address], [place], [place], [id number]. tel:[phone] Referring Provider: Carlos Sanders, [address] [place] [address] [address], [place], [address]. tel:[phone] Family History Family Member Type Diagnosis Age At Onset Father Problem glaucoma Father Problem Retinal disease Father Problem hypertension Mother Problem Diabetes mellitus Sister Problem malignant neoplasm of thyroi d Mother Problem cataract Payers Payer name Insurance type Covered democrat ID Kelle luke(corin FELIX [id number] Social History Type Description Quantity Date Captured Comments Alcohol Use Details Unknown Caffeine Use Details Unknown Tobacco Use Status Current non-smoker 22 Smoking Status Never smoker Non-Smoking Tobacco Use Details : No Details Available : No Details Available Sex Female Chief Complaint And Reason For Visit From encounter dated '06/02/2020 10:45'. Corneal consult (chief complaint). Description: The 34 year old female presents for evaluation of Corneal consult in the right more than left eye. It started about 2 year(s) ago. It affects decrease in both near and distance vision. The symptom is frequently. The condition is described as blurry vision. Patient denies eye pain, flashes and floaters. Associated symptoms include: headaches. Patientstates that in the last 2 years she has had trouble wearing contact lenses. The most recent was last week when pt had a FBS in the left eye. She also had a pounding headache in the back of her head on the left side. She was told that there is a spot in the back of the left eye. Patient has stopped w earing her Contacts for now. Tobradex 0/2. Reason For Referral Reason For Referral No Information History Of Present Illness Encounter Date Complaint History Of Prese nt Illness Corneal consult The 34 year old female presents for evaluation of Corneal consult in the right more than left eye. It started about 2 year(s) ago. It affects decrease in both near and distance vision. The symptom is frequently. The condition is described as blurry vision. Patient denies eye pain, flashes and floaters. Associated symptoms include: headaches. Patient states that in the last 2 years she has had trouble wearing contact lenses. The most recent was last week when pt had a FBS in the left eye. She also had a pounding headache in the back of her head on the left side. She was told that there is a spot in the back of the left eye. Patient has stopped wearing her Contacts for now. Tobradex 0/2. Functional Status Date Functional Assessmen t No Information Instructions Date Instruction Additional Infor sadaf Impression/Plan Assessments Type Assessment Date assessment Red eye associated with contact lens assessment Presence of spectacles and conta ct lenses Patient Care Teams Name Effective Dates (start - stop) Status Members No Information
--- OUTSIDE RECORDS SUMMARY | 2021-01-08 11:10 | XMS_ITS | Encounter Summary ---
Author Organization [facility] Address [address] [place] [address] Care Team Providers Care Selvage Machine Operator Name Role Phone Provider, No Known Primary Care Provider Unavail able Reason for Referral * Diagnostic Imaging (Routine) - Closed Specialty Diagnoses / Procedures Referred By Contac t Referred To Contact Radiology Diagnoses Pelvic pain Procedures US Non-ob Transvaginal Magaly Gaona APRN [facility] Phone: tel: Referral ID Status Reason Start Date Expiration Date Visits Re quested Visits Authorized [id number] Closed 01/07/2021 01/07/2022 1 1 Reason for Visit * Diagnostic Imaging (Routine) - Closed Specialty Diagnoses / Procedures Referred By Contac t Referred To Contact Radiology Diagnoses Pelvic pain Procedures US Non-ob Transvaginal Magaly Gaona APRN [facility] Phone: tel: Referral ID Status Reason Start Date Expiration Date Visits Re quested Visits Authorized [id number] Closed 01/07/2021 01/07/2022 1 1 Encounter Details Date Type Department Care Team (Late st Contact Info) Description 01/08/2021 11:10 AM EDT Hospital Encounter [facility] [phone] Pelvic pain Social History Tobacco Use Types Packs/Day Years Used Date Smoking Tobacco: Never Passive Smoke Exposure: Never Smokeless Tobacco: Never Alcohol Use Standard Drinks/Week Comments Never 0 (1 standard drink = 0.6 oz pur e alcohol) PHQ-2 Answer Date Recorded Retired PHQ-9: Brief Depression Severity Measure Score 0 05/19/2022 Abuse Screen Answer Date Recorded Feels Unsafe at Home or Work/School no 04/22/2022 Feels Threatened by Someone no 06/2021 Does Anyone Try to Keep You From Having Contact with Others or Doing Things Outside Your Home? no 04/22/2022 Physical Signs of Abuse Present no 04/22/2022 Housing Stability Answer Date Recorded Current Living Arrangements home 06/2021 Potentially Unsafe Housing Conditions Not on anne e 04/22/2022 Disabilities Answer Date Recorded Difficulty Concentrating, Remembering or Making Decisions no 04/22/2022 Difficulty Managing Errands Independently no 04/22/2022 Education Answer Date Recorded Help with school or training? Not on file Preferred Language Irish 04/13/2022 PHQ-2 Answer Date Recorded Retired PHQ-9: Brief Depression Severity Measure Score 0 05/19/2022 Comments No Sex and Gender Information Value Date Recorded Sex Assigned at Not on file Legal Sex Female 11:59 AM EDT Gender Identity Not on file Sexual Orientation Not on file documented as of this encounter Plan of Treatment Upcoming Encounters Date Type Department Care Team (Late st Contact Info) Description 05/20/2025 11:45 AM EST Office Visit [facility] ENDOCRINOLOGY [address] [address] Padmini Gomez MD [address] [address] documented as of this encounter Procedures Procedure Name Priority Date/Time Associated Diagnosis Comments US NON-OB TRANSVAGINAL Routine 01/08/2021 11:40 AM EDT Pelvic pain documented in this encounter Results * US Non-ob Transvaginal (01/08/2021 11:40 AM EDT) Anatomical Region Laterality Modality Body Ultrasound 01/08/2021 12:3 9 PM EDT Narrative 01/09/2021 4:20 PM EDT PAT NAME: KYLIE LARA [facility] REC#: [id number] DA: 1985 PAT GEND: F PAT TYPE: O EXAM DYLAN: [id number] REF PHYS MAGALY GAONA Indication ======== Pelvic pain [R10.2 (ICD-10-CM)] Comparison Studies There are no relevant prior studies to which this study is being compared History ====== Medical History Past surgical history: Previous surgeries performed Surgery: Hysterectomy and left oophorectomy Method ======= Voluson E6, Transvaginal ultrasound examination, Color Doppler flow performed, 3D ultrasound examination. View: Adequate view Uterus ====== Uterus: Not visualized Uterus details: Uterus and cervix are not seen, consistent with stated history. Right Ovary Rt ovary: Normal Rt ovary D1 35.4 mm Rt ovary D2 20.1 mm Rt ovary D3 30.5 mm Rt ovary Vol 11.4 cm Left Ovary ========= Lt ovary: Not visualized Lt ovary details: not seen consistent with stated history of prior oophorectomy Cul de Sac ========= Normal. No free fluid visualized Impression ========= The right ovary appear sonographically normal in size, shape and morphology. The uterus is not seen, consistent with stated history of prior hysterectomy. The left ovary is not seen, consistent with history of prior left oophorectomy Recommendation Clinical judgement is needed to determine if further work-up is needed. Manager Community: Magaly Parekh RDMS Physician: Cole Barnes MD Electronically signed by: Cole Barnes MD at: 16:20 Procedure Note Cole Barnes MD - 01/09/2021 PAT NAME: KYLIE LARA [facility] REC#: [id number] DA: 1985 PAT GEND: F PAT TYPE: O EXAM DYLAN: [id number] REF PHYS MAGALY GAONA Indication ======== Pelvic pain [R10.2 (ICD-10-CM)] Comparison Studies There are no relevant prior studies to which this study is beingcompared History ====== Medical History Past surgical history:Previous surgeries performed Surgery:Hysterectomy and left oophorectomy Method ======= Voluson E6, Transvaginal ultrasound examination, Color Doppler flowperformed, 3D ultrasound examination. View: Adequate view Uterus ====== Uterus:Not visualized Uterus details:Uterus and cervix are not seen, consistent with statedhistory. Right Ovary Rt ovary:Normal Rt ovary D135.4 mm Rt ovary D220.1 mm Rt ovary D330.5 mm Rt ovary Vol11.4 cm Left Ovary ========= Lt ovary:Not visualized Lt ovary details:not seen consistent with stated history of prioroophorectomy Cul de Sac ========= Normal. No free fluid visualized Impression ========= The right ovary appear sonographically normal in size, shape andmorphology. The uterus is not seen, consistent with stated history of priorhysterectomy. The left ovary is not seen, consistent with history of prior leftoophorectomy Recommendation Clinical judgement is needed to determine if further work-up is needed. Manager Community: Magaly Parekh RDAK Physician: Cole Barnes MD Electronically signed by: Cole Barnes MD at: 16:20 us Magaly Gaona SOAPING DEPARTMENT SUPERVISOR IMG US ORDERABLES Final Result documented in this encounter Visit Diagnoses Diagnosis Pelvic pain documented in this encounter Care Teams Selvage Machine Operator Relationship Specialty Start Date End Date Provider, [place] [address] PCP - General 10/16/20 04/06/21 documented as of this encounter
--- OUTSIDE RECORDS SUMMARY | 2022-12-28 10:45 | XMS_ITS | Encounter Summary ---
Author Organization [facility] Address [address] [place] [address] Care Team Providers Care Senior Digital Designer Name Role Phone Ernesto Saucedo MD Primary Care Provider [phone] Reason for Referral * Hospital - Outpatient (Routine) - Closed Specialty Diagnoses / Procedures Referred By Mu abrams Referred To Contact Sleep Medicine Diagnoses Obstructive sleep apnea, adult Excessive daytime sleepiness Snoring Procedures Home Sleep Study Eyad Reveles MD [address] [place] [address] Phone: tel: fax: [facility] [address] [address] Phone: tel: fax: Referral ID Status Reason Start Date Expiration Date Visits Re quested Visits Authorized [id number] Closed 12/12/2022 12/12/2023 1 1 Reason for Visit * Hospital - Outpatient (Routine) - Closed Specialty Diagnoses / Procedures Referred By Mu abrams Referred To Contact Sleep Medicine Diagnoses Obstructive sleep apnea, adult Excessive daytime sleepiness Snoring Procedures Home Sleep Study Eyad Reveles MD [address] [place] [address] Phone: tel: fax: [facility] [address] [place] [address] Phone: tel: fax: Referral ID Status Reason Start Date Expiration Date Visits Re quested Visits Authorized [id number] Closed 12/12/2022 12/12/2023 1 1 Encounter Details Date Type Department Care Team (Late st Contact Info) Description 12/28/2022 10:45 AM EDT Hospital Encounter [facility] [address] [facility] [address] [place] [phone] Eyad Reveles MD [address] [place] [address] Obstructive sleep apnea, adult; Excessive daytime sleepiness; Snoring Social History Tobacco Use Types Packs/Day Years [...] or training? Not on file Preferred Language Armenian 04/13/2022 PHQ-2 Answer Date Recorded Retired PHQ-9: Brief Depression Severity Measure Score 0 05/19/2022 Comments No Sex and Gender Information Value Date Recorded Sex Assigned at Not on file Legal Sex Female 11:59 AM EDT Gender Identity Not on file Sexual Orientation Not on file documented as of this encounter Last Filed Vital Signs Vital Sign Reading Time Taken Comments Blood Pressure - - Pulse - - Temperature - - Respiratory Rate - - Oxygen Saturation - - Inhaled Oxygen Concentration - - Weight 85.3 kg (188 lb) 12/28/2022 10:47 AM EDT Height 162.6 cm (5' 4 ) 12/28/2022 10:47 AM EDT Body Mass Index 32.27 12/28/2022 10:47 AM EDT documented in this encounter Plan of Treatment Upcoming Encounters Date Type Department Care Team (Late st Contact Info) Description 05/20/2025 11:45 AM EST Office Visit [facility] ENDOCRINOLOGY [address] [place] [address] Padmini Gomez MD [address] [place] [id number] documented as of this encounter Procedures Procedure Name Priority Date/Time Associated Diagnosis Comments WATCHPAT Routine 12/29/2022 6:10 AM EDT Obstructive sleep apnea, adult Excessive daytime sleepiness Snoring documented in this encounter Results * WATCHPAT (12/29/2022 6:10 AM EDT) Narrative SLEEP MEDICINE - 01/04/2023 10:46 AM EDT Table formatting from the original result was not included. Polysomnography Report Patient Name: Pham Lara Interpreting Physician: Eyad Reveles MD Date of : 1985 Referring Physician: Eyad Reveles,* Primary Care Physician: Ernesto Saucedo MD Date of Study: Clinical Information 37-year-old female with a longstanding history of disturbed sleep and daytime somnolence/nonrestorative sleep. She has been observed to snore. She has an elevated BMI and class III airway. She certainly warrants further evaluation for the possibility of obstructive sleep apnea. However, she does have a component of significant insomnia which may be related or comorbid with her sleep apnea if that is present. Methods used for Home Sleep Testing: Patient had a home sleep test using an WatchPat device that uses peripheral arterial tone to measure arterial volume changes at the fingertip showing sympathetic nervous system activation. Sleep stages are determined based on signal characteristics and built in actigraphy can help determine sleep/wake periods. Both signal attenuation and pulse rate determine arousals correlating with respiratory events, and the pulse oximeter sensor determines blood oxygen saturations. Snoring and body position is determined through an intergrated sensor measuring decibals and actigraphy. Home Sleep Testing Results 7 hours and 23 minutes of total sleep time was obtained. The AHI was mildly elevated at 6.8. It was higher during REM sleep at 12.5. The events appear to be primarily obstructive in nature. Oxygen saturations averaged 94% with a minimum saturation of 89%. Significant snoring was present. Impression: - mild obstructive sleep apnea is present. - Oxygen desaturation is present. - Snoring is present. Plan: - Recommend trial of CPAP such as AutoSet with an 8 cm minimum an 18 cm maximum. - Recommend weight loss. - Continued efforts at improving sleep hygiene Follow-up: Sleep Center Electronically signed by: Eyad Reveles MD 01/04/23 10:44 EDT us Eyad Reveles MD [facility]EP [facility] ORDERABLE S Final Result SLEEP MEDICINE documented in this encounter Visit Diagnoses Diagnosis Obstructive sleep apnea, adult Excessive daytime sleepiness Snoring Other dyspnea and respiratory abnormality documented in this encounter Care Teams Senior Digital Designer Relationship Specialty Start Date End Date Ernesto Saucedo MD [facility] [place] [facility] [address] [facility] [address] [id number] PCP - General Family Medicine 04/07/21 02/21/23 documented as of this encounter
--- OUTSIDE RECORDS SUMMARY | 2024-12-14 13:22 | XMS_ITS | Clinical Summary ---
Author Organization [facility] Address [address] [facility] [place] [address] Care Team Providers Care Formulator Compounder Name Role Phone Ernesto Saucedo MD Primary Care Provider [phone] Allergies No known active allergies Medications linaCLOtide (Linzess) 145 MCG tablet Take 145 mcg by mouth 1 (one) time each day. 1 Active methylPREDNISol one (Medrol Dospak) 4 MG tablets TAKE ONE ROW OF TABLETS EACH DAY INSTRUCTED ON THE PACKAGE 1 Active Active Problems No known active problems Family History Medical History Relation Name Comments Diabetes type II Father's Brother Arthritis Mother Maribell Diabetes Mother Maribell Diabetes type II Mother Maribell Diabetes type II Other 1 Conversions - Other Other 2 Thyroid carcinoma Conversions - Other Sister Thyroid carcinoma Relation Name Status Comments Father's Brother Mother Maribell Other 1 Other 2 Sister Social History Tobacco Use Types Packs/Day Years Used Date Smoking Tobacco: Never Smokeless Tobacco: Never Alcohol Use Standard Drinks/Week Comments No 0 (1 standard drink = 0.6 oz pur e alcohol) PHQ-2 Answer Date Recorded Patient Health Questionnaire-2 Score 0 04/30/2021 Comments No Sex and Gender Information Value Date Recorded Sex Assigned at Not on file Legal Sex Female 7:06 PM EDT Gender Identity Not on file Sexual Orientation Not on file Last Filed Vital Signs Vital Sign Reading Time Taken Comments Blood Pressure 128/76 10/07/2022 8:09 PM EDT Pulse 64 10/07/2022 8:09 PM EDT Temperature 35.9 C (96.6 F) 04/30/2021 8:03 AM EST Respiratory Rate 16 04/30/2021 8:03 AM EST Oxygen Saturation 100% 02/12/2021 10:16 AM EDT Inhaled Oxygen Concentration - - Weight 76.7 kg (169 lb) 10/07/2022 8:09 PM EDT Height 162.6 cm (5' 4 ) 10/07/2022 8:09 PM EDT Body Mass Index 29.01 10/07/2022 8:09 PM EDT Plan of Treatment Health Maintenance Due Date Last Done Comments [facility]-Depression Screening 1986 [facility]-/Child/Adol SDOH Screenings 1986 [facility]-Varicella Vaccines (1 of 2 - 13+ 2-dose series) 09/23/1999 HPV Vaccines (1 - 3-dose series) 2001 [facility]- SDOH Screenings 2004 [facility]-Adult SDOH Screenings 2004 [facility]-Hepatitis B Vaccines (1 of 3 - 19+ 3-dose series) 2005 [facility]-Pap Smear 09/23/2007 [facility]-Cervical Cancer Screening 2016 [facility]-HPV/Cotest 2016 [facility]-DTaP,Tdap,and Td Vaccines (2 - Td or Tdap) 03/22/2023 03/22/2013 [id number] Vaccine (1 - 2023- season) 2024 [facility]-Influenza Vaccine (#1) 01/20/202505/25, 02/05/2021, 02/03/2020, Additional history exists [facility]-Zoster Vaccines (1 of 2) 2036 [facility]-HIB Vaccines Aged Out No longer e ligible based on patient's age to complete this topic [facility]-Hepatitis A Vaccines Aged Out No longer eligible based on patient's age to complete this topic [facility]-IPV Vaccines Aged Out No longer e ligible based on patient's age to complete this topic [facility]-Pneumococcal Vaccine: Pediatrics (0 to 5 Years) and At-Risk Patients (6 to 49 Years) Aged Out No longer eligible based on patient's age to complete this topic [facility]-Rotavirus Vaccines Aged Out No lo nger eligible based on patient's age to complete this topic Insurance HUMANA Care Teams Formulator Compounder Relationship Specialty Start Date End Date Ernesto Saucedo MD [address] [address] [place] [address] PCP - General 10/02/20
--- OUTSIDE RECORDS SUMMARY | 2024-12-14 13:22 | XMS_ITS | Clinical Summary ---
Author Organization [facility] Address [address] [place] [address] Phone Care Team Providers Care Refrigeration Installer Name Role Phone Ernesto Saucedo MD Primary Care Provider [phone] Allergies No known active allergies Medications vit-iron fumarate-FA 27-0.8 mg Tab Take 1 Tab by mouth daily. Active calcium acetate (PHOSLO) 667 mg capsule Take by mouth 3 times daily (with meals). Active Guaifenesin (MUCINEX) 1,200 mg Oral Tablet Extended Release 12hr Take 1 Tablet by mouth 2 times daily. 20 Tablet 10/19/2022 Active Active Problems No known active problems Immunizations Immunization Administration Dates Next Due Influenza Vaccine, Unspecified Formulation 02/06 Tdap 03/22/2013 Surgical History Surgery Date Site/Laterality Comments CHOLECYSTECTOMY, LAPAROSCOPIC 03/24/2016 N/A LAPAROSCOPIC CHOLECYSTECTOMY; Surgeon: Nathaniel Navas MD; Location: ED MAIN OR; Service: General Medical History Medical History Date Comments Heartburn with Encounter for blood transfusion after 1st delivery, 3-12' Family History Medical History Relation Name Comments Cancer Maternal Grandmother Arthritis Mother Diabetes Mother High Cholesterol Mother Diabetes Paternal Uncle Cancer Sister Depression Sister Relation Name Status Comments Maternal Grandmother Mother Paternal Uncle Sister Social History Tobacco Use Types Packs/Day Years Used Date Smoking Tobacco: Never Smokeless Tobacco: Never Alcohol Use Standard Drinks/Week Comments No 0 (1 standard drink = 0.6 oz pur e alcohol) Comments No Sex and Gender Information Value Date Recorded Sex Assigned at Not on file Legal Sex Female 8:25 AM EDT Gender Identity Not on file Sexual Orientation Not on file Obstetrics History Para Term AB IAB SAB Ectopic Multiple Livin g Live Births 2 2 2 2 1 Date Outcome GA Total Labor Labor/2nd/3rd Weight Sex Type Anes PTL Zehra A1 A5 Name Clin Term 013 Term 39w 0d 7 lb 8 oz (3.402 kg) F Vag-S pont Epidur al N Livin g 9 9 SIM MONTGOMERY,HUGO BEL BABY A Benjamin Isbell MD Delivery Location:[facility] Last Filed Vital Signs Vital Sign Reading Time Taken Comments Blood Pressure 117/76 10/19/2022 5:00 PM EDT Pulse 69 10/19/2022 5:00 PM EDT Temperature 37.2 C (99 F) 10/19/2022 2:27 PM EDT Respiratory Rate 15 10/19/2022 5:00 PM EDT Oxygen Saturation 100% 10/19/2022 5:00 PM EDT Inhaled Oxygen Concentration - - Weight 85.7 kg (189 lb) 10/19/2022 2:27 PM EDT Height 162.6 cm (5' 4 ) 10/19/2022 2:27 PM EDT Body Mass Index 32.44 10/19/2022 2:27 PM EDT Plan of Treatment Health Maintenance Due Date Last Done Comments Annual Wellness Exam 1989 Hepatitis B Vaccine (1 of 3 - 19+ 3-dose series) 2005 HPV/Pap Cotest 2016 Cervical Cancer Screening 03/03/2020 Pap Smear 03/03/2020 03/03/2017, 12/20, 09/17/2013 DTaP/TDaP/Td (2 - Td or Tdap) 03/22/2023 03/22/2013 COVID-19 Vaccine ( - 2023- season) 2024 Influenza Vaccine (#1) 2025 , 02/05/2021, 02/03/2020, Additional history exists Meningococcal B Vaccine Aged Out No l onger eligible based on patient's age to complete this topic Pneumococcal Vaccine 0-49 Aged Out No longer eligible based on patient's age to complete this topic Insurance HUMANA POS HUMANA POS Advance Directives For more information, please contact: [phone] * Full Code (Latest Code Status on File) Date Activated Date Inactivated Comments 03/21/2013 6:51 AM 03/23/2013 6:22 PM Care Teams Refrigeration Installer Relationship Specialty Start Date End Date Ernesto Saucedo MD [address] [place] [address] [place] [address] [place] [phone] PCP - General Family Medicine 12/24/12
--- OUTSIDE RECORDS SUMMARY | 2024-12-14 13:22 | XMS_ITS | Clinical Summary ---
Author Organization [facility] Address [address] [place] [address] Care Team Providers Care Mill Beam Fitter Name Role Phone Charley Chanel APRN Primary Care Provider [phone] Allergies Active Allergy Reactions Criticality Noted Date Comments Ct Contrast Rash Low 02/15/2023 Iodinated Contrast Media Rash Low 10/23/2023 patient states after contrast she began to a have a cough and rash on her body Gadolinium Derivatives (Mr Contrast) Anaphylaxis High 02/15/2023 Was given epipen in hospital after reaction which led to heart attach per pt Technetium Tc 99m Sestamibi Hives,Itching,Rash,Swe lling,Unknown - Low Severity Low 05/20/2024 Medications topiramate (TOPAMAX) 25 MG tablet Take 1 tablet by mouth Every 12 (Twelve) Hours. 04/01/2024 Active spironolactone (ALDACTONE) 25 MG tablet Take 1 tablet by mouth Daily. 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 Underwent left ureteroneocystotomy with psoas hitch and oversewing of serosal injuries of the sigmoid colon Annual MAT WORKER exam - S/P TAHLSO 03/14/2021 Overview (10/28/2022): SCREENING TESTS Year 2016 2017 2018 2019 2020 2021 2022 2023 2024 2025 2026 2027 2028 2029 2030 2031 2032 2033 2034 2035 Age FRACISCO [Birads] JACI (6 year) Tyrer [place] (lifetime) Colonoscopy 6 Rangel DEXA [T-score] Frax [hip/any] Lipids [LDL / HDL / TG] Vitamin D TSH Enter the month test was performed. If month not known, enter X' Black numbers = normal results Red numbers = abnormal results Black X = patient reported normal Red X - patient reported abnormal Referred by: Profession: Other info: Magaly Price patient Anna Emerson's sister Hair loss 2020 Abnormal weight gain 2020 Other fatigue 2020 Assessment & Plan (05/16/2023 1:33 PM EST): Check cbc, b12 Sleep issues- having problems sleeping now overly sleepy with addition of medication/ sleep aid Simple goiter 2020 Assessment & Plan (05/20/2024 12:16 PM EST): Bilateral small nodules- unchanged clinically Doing well overall No c/o dysphagia or hoarsenss Some fatigue Update tfts and abs Assessment & Plan (05/16/2023 1:34 PM EST): Get u/s via [facility] for review Has fam h/o thyroid cancer- check u/s annually Recent tsh 0.58 Resolved Problems Problem Noted Date Diagnosed Date Resolved Date Bilateral ovarian cysts 04/01/2022 1201/2022 Overview (04/01/2022): Added automatically from request for surgery [id number] Immunizations Immunization Administration Dates Next Due Fluzone (or Fluarix & Flulav al for VFC) >6mos 05/23/2023,05/25/2022 Fluzone Quad >6mos (Multi-dose) 02/06/20,02/03/2020,03/12/2019,2017,03/22/2017 Influenza, Unspecified 05/25/2022,02/06/2013 Tdap 03/22/2013 Family History Medical History Relation Name Comments Heart attack Father Father Heart disease Father Father Diabetes Mother Maribell Thyroid cancer Sister Colon cancer Neg Hx Colon polyps Neg Hx Relation Name Status Comments Father Father Alive Mother Maribell Alive Sister Alive Social History Tobacco Use Types Packs/Day Years Used Date Smoking Tobacco: Never Passive Smoke Exposure: Never Smokeless Tobacco: Never Tobacco Cessation:Counseling Given: Not Answered Alcohol Use Standard Drinks/Week Comments Never 0 [...] or training? Not on file Preferred Language Afghan 04/13/2022 PHQ-2 Answer Date Recorded Retired PHQ-9: Brief Depression Severity Measure Score 0 05/19/2022 Comments No Sex and Gender Information Value Date Recorded Sex Assigned at Not on file Legal Sex Female 11:59 AM EDT Gender Identity Not on file Sexual Orientation Not on file Last Filed Vital Signs Vital Sign Reading Time Taken Comments Blood Pressure 122/88 05/20/2024 11:45 AM EST Pulse 74 05/20/2024 11:45 AM EST Temperature 36.3 C (97.3 F) 05/19/2022 9:57 AM EST Respiratory Rate 18 05/19/2022 9:57 AM EST Oxygen Saturation 99% 05/20/2024 11:45 AM EST Inhaled Oxygen Concentration - - Weight 81.5 kg (179 lb 9.6 oz) 05/20/2024 11:45 AM EST Height 162.6 cm (5' 4 ) 05/20/2024 11:45 AM EST Body Mass Index 30.83 05/20/2024 11:45 AM EST Plan of Treatment Upcoming Encounters Date Type Department Care Team (Late st Contact Info) Description 05/20/2025 11:45 AM EST Office Visit [facility] [address] [place] [address] Padmini Gomez MD [address] [place] [address] Health Maintenance Due Date Last Done Comments ANNUAL PHYSICAL 04/01/2020 Annual Gynecologic Pelvic and Breast Exam 01/11/2023 01/10/2022 TDAP/TD VACCINES (2 - Td or Tdap) 03/22/2023 03/22/2013 COVID-19 Vaccine ( - 2023- season) 2024 INFLUENZA VACCINE 02/19/2025 02/03/2024, , 05/25/2022, Additional history exists HEPATITIS C SCREENING Completed 11/05/2020, 021 Pneumococcal Vaccine 0-49 Aged Out No longer eligible based on patient's age to complete this topic Procedures Procedure Name Priority Date/Time Associated Diagnosis Comments HEPATITIS C ANTIBODY Routine 11/05/2020 9:12 AM EDT Fatty liver from Last 3 Months or Most Recently Relevant to Health Maintenance Results * Hepatitis C Antibody (11/05/2020 9:12 AM EDT) Hep C Virus Ab <0.1 0.0 - 0.9 s/co ratio [facility] Comment: Negative: < 0.8 Indeterminate: 0.8 - 0.9 Positive: > 0.9 The CDC recommends that a positive HCV antibody result be followed up with a HCV Nucleic Acid Amplification test ([id number]). Blood 11/05/2020 9:12 AM EDT 11/05/2020 Comment:BLOOD RELEASE TO ISSAC Resendiz [facility] (AMBULATORY) - 11/09/2020 3:08 PM EDT Performed at: 03 - [facility] [address] [facility], [place], [place] [id number] Qa Software Tester: Bob Simons PhD, Phone: [phone] us Robyn Jackson FORE[employer] LANGUAGES PROFESSOR LAB BLOOD ORDERABLES Final R esult [facility] ([facility]) [address] [place] [address], [place] [phone] [facility] [address] [place] [address], [place] [phone] from Last 3 Months or Most Recently Relevant to Health Maintenance Insurance Care Teams Mill Beam Fitter Relationship Specialty Start Date End Date Charley Chanel APRN [address] [place] [address] [place] [id number] PCP - General Nurse Practitioner 02/22/23
--- OUTSIDE RECORDS SUMMARY | 2024-12-14 13:22 | XMS_ITS | Referral Summary ---
Author Organization [facility] ([place], [place], [place], [place]) Address [address] [place] [address] Care Team Providers Care Data Systems Manager Name Role Phone Provider Not In System, McT Primary Care Provide r Unavailable Allergies No known active allergies Medications No known medications Active Problems Problem Noted Date Diagnosed Date Numbness and tingling of both legs 03/30/2022 Chronic bilateral low back pain without sciatica 03/30/2022 Spondylosis of lumbar region without myelopathy or radiculopathy 03/30/2022 Neuropathy 03/30/2022 Overview (03/30/2022): Non specific, but need to be asessed for. Well woman exam 03/14/2021 Overview (03/30/2022): SCREENING TESTS Year 2017 2018 2018 2019 2020 2021 2022 2023 2024 2025 2026 2027 2028 2029 2030 2031 2032 2033 2034 2035 Age FRACISCO [Birads] JACI (6 year) [place] (lifetime) Colonoscopy 6 Rangel DEXA [T-score] Frax [hip/any] Lipids [LDL / HDL / TG] Vitamin D TSH Enter the month test was performed. If month not known, enter X' Black numbers = normal results Red numbers = abnormal results Black X = patient reported normal Red X - patient reported abnormal Referred by: Profession: Other info: Magaly Price patient Abnormal weight gain 2020 Chronic fatigue 2020 Hair loss 2020 Simple goiter 2020 Social History Tobacco Use Types Packs/Day Years Used Date Smoking Tobacco: Never Food Insecurity Answer Date Recorded Food run out past 12 months Not on file 05/23 Food did not last past 12 months Not on file 06/10/2023 Employment Answer Date Recorded Help finding and keeping a job Not on file 0 06/10/2023 Family and Community Support Answer Ruddy e Recorded Help with Day to Day Activities Not on file 06/10/2023 Feeling Lonely or Isolated Not on file 06/10 Educational Attainment Answer Date Scott rded Speak language other than Peruvian at home Not on file 06/10/2023 Want help with school or training Not on file 06/10/2023 Substance Use Answer Date Recorded Used prescription meds for non-medical reasons N ot on file 06/10/2023 Used illegal drugs past 12 months Not on file 06/10/2023 Comments Unknown Sex and Gender Information Value Date Recorded Sex Assigned at Not on file Legal Sex Female 4:03 PM CDT Gender Identity Not on file Sexual Orientation Not on file Last Filed Vital Signs Vital Sign Reading Time Taken Comments Blood Pressure 128/78 03/30/2022 9:24 AM EST Pulse 68 03/30/2022 9:24 AM EST Temperature - - Respiratory Rate - - Oxygen Saturation - - Inhaled Oxygen Concentration - - Weight 78.2 kg (172 lb 8 oz) 03/30/2022 9:24 AM EST Height 162.6 cm (5' 4 ) 03/30/2022 9:24 AM EST Body Mass Index 29.61 03/30/2022 9:24 AM EST Plan of Treatment Not on file Insurance [employer] Care Teams Data Systems Manager Relationship Specialty Start Date End Date Provider Not In System, Pawan PCP - General 03/30/22
--- OUTSIDE RECORDS SUMMARY | 2024-12-14 13:22 | XMS_ITS | Data Portability ---
Author Organization [facility] Address [address] [place] [address] Care Team Providers Care Junior Art Director Name Role Phone RADHA VALLE Referring Provider [phone] Assessment Encounter Date Assessment Date Assessment LastModified by Organization Details LastModified Time 05/03/2023 05/03/2023 Interval Hx: Ms. Lara follows up today for left foot pain and right leg pain. She is S/P L5/S1 IL-LUKASZ 04/11/23 resulting in no relief. She reports she found the injection to be very painful. She continues to report low back pain, right leg pain, and left foot pain. She has followed up with Dr. Valle, he will be referring her to another orthopedist for a second opinion. She states podiatry wants to obtain a new EMG, the previous EMG showed no abnormalities. She will be evaluated by a new chemical maker in the coming months. She states the left foot will swell at times, notices it will be 'cold'. She denies color change or nail changes. We reviewed the cervical xray ordered last visit, she continues to report axial neck pain, she reports 'numbness' of right arm has improved. She continues home exercises provided for the neck. This office does not provide any medication for this patient. No new health changes reported today. HPI: This is a 37-year-old female with left foot and right leg pain She was referred by Dr. Valle, has chronic left foot pain. Has recent developed right lower extremity radiculopathy as well. Denies incontinence or cauda equina symptoms. No prior back surgery, had a surgery evaluation in the past, has an upcoming follow-up with them. Is unaware of who the surgery team is and where they operate. Physical therapy in the past not beneficial. This was for her low back and left foot pain. Anticoagulants: None PMHx: Hypertension INJ Hx: 04/11/2023 #1 ILESI L5/S1; 0% relief Foot injections on the left without benefit PSHx/Surgical Evaluation: Referred by Dr. Valle, no prior back surgery Evaluated by Dr. Dubois, ortho, no surgery recommended IMAGING: C XR 03/29/23 No acute fracture or malalignment. Intervertebral disc and vertebral body heights are preserved. Cervical lordosis preserved. Facet joints are properly aligned. Mild degenerative disease at C5-6. Mild degenerative changes without acute osseous abnormality Lumbar XR 02/28/23 No acute fracture or malalignment. Mild rightward curvature. Mild degenerative changes with small osteophytes. Post op changes in right abdomen and pelvis L MRI 02/28/23 L1-4 no significant disc bulge or herniation. No severe spinal canal stenosis. No significant neural foraminal narrowing L4-5 small broad-based central disc protrusion without significant spinal canal stenosis. Right neural foramen appears patent. Left foraminal disc bulging without significant neural foraminal stenosis L5-S1 small broad-based central disc protrusion which causes minimal mass effect on anterior thecal sac. No significant spinal canal stenosis. Protrusion appears to mildly abut central S1 nerve roots in right lateral recess. Bilateral foraminal disc bulging and facet hypertrophy without significant neural foraminal stenosis The above image findings were discussed with the patient. Medications/Compl iance: Current medications include NSAIDs. History of sedation with Gabapentin The patient feels that they receive adequate analgesia and activity improvement with the medication. The patient denies side effects from the medications. UDS was not obtained. ORT, PHQ-9 and BEN were reviewed today. SUSIE report was reviewed today and is appropriate. Based upon the above I would consider the patient to be Low risk. PT The patient completed over six weeks of physical therapy in the past without benefit for their pain ASSESSMENT/PLAN This is a 37-year-old with left foot and right leg pain. Unfortunately, L5/S1 IL-LUKASZ did not provide any relief for her pain. We discussed other options, including right L5/S1, S1 TF-LUKASZ to address the right leg pain. She defers at this time. We also discussed lumbar medial branch blocks to address axial low back pain. The recommended procedure is discussed with the patient in detail. Questions related to the procedure are answered. She understands medial branch blocks/RFA will only address axial pain, will not address right leg or left foot complaints. She will continue to monitor neck and arm pain, should radicular symptoms return, we will proceed with cervical MRI. At this time, she would like to consult with her , follow up with podiatry, and ortho before making a decision regarding next steps. She will contact the office when an appointment is needed. No medications are provided today. [email or web address] Not available 05/03/2023 15:07:23 07/10/2023 07/10/2023 Interval Hx: Ms. Lara follows up today with a primary complaint of axial low back pain. Since last visit, she has followed up with [facility], they performed a right SI joint injection 06/02/23, she reports this made her pain worse. After that injection, they referred her back to our clinic. We have previously seen her for right leg and left foot pain, she feels these complaints are manageable at this time. She denies any mechanism of injury to cause axial low back pain, reports it has been present for several months. This office does not provide any medication for this patient. No new health changes reported today. HPI: This is a 37-year-old female with left foot and right leg pain She was referred by Dr. Valle, has chronic left foot pain. Has recent developed right lower extremity radiculopathy as well. Denies incontinence or cauda equina symptoms. No prior back surgery, had a surgery evaluation in the past, has an upcoming follow-up with them. Is unaware of who the surgery team is and where they operate. Physical therapy in the past not beneficial. This was for her low back and left foot pain. Anticoagulants: None PMHx: Hypertension INJ Hx: 06/02/23 R SI injection 0% relief - performed at [facility] 04/11/2023 #1 ILESI L5/S1; 0% relief Foot injections on the left without benefit PSHx/Surgical Evaluation: Referred by Dr. Valle, no prior back surgery Evaluated by Dr. Dubois, ortho, no surgery recommended IMAGING: C XR 03/29/23 No acute fracture or malalignment. Intervertebral disc and vertebral body heights are preserved. Cervical lordosis preserved. Facet joints are properly aligned. Mild degenerative disease at C5-6. Mild degenerative changes without acute osseous abnormality Lumbar XR 02/28/23 No acute fracture or malalignment. Mild rightward curvature. Mild degenerative changes with small osteophytes. Post op changes in right abdomen and pelvis L MRI 02/28/23 L1-4 no significant disc bulge or herniation. No severe spinal canal stenosis. No significant neural foraminal narrowing L4-5 small broad-based central disc protrusion without significant spinal canal stenosis. Right neural foramen appears patent. Left foraminal disc bulging without significant neural foraminal stenosis L5-S1 small broad-based central disc protrusion which causes minimal mass effect on anterior thecal sac. No significant spinal canal stenosis. Protrusion appears to mildly abut central S1 nerve roots in right lateral recess. Bilateral foraminal disc bulging and facet hypertrophy without significant neural foraminal stenosis The above image findings were discussed with the patient. Medications/Compl iance: Current medications include NSAIDs. History of sedation with Gabapentin The patient feels that they receive adequate analgesia and activity improvement with the medication. The patient denies side effects from the medications. UDS was not obtained. ORT, PHQ-9 and BEN were reviewed today. SUSIE report was reviewed today and is appropriate. Based upon the above I would consider the patient to be Low risk. PT The patient completed over six weeks of physical therapy in the past without benefit for their pain ASSESSMENT/PLAN This is a 37-year-old with axial low back pain. She has a history of left foot and right leg pain as well. She has been referred back by [facility] following a right SI injection with no benefit. Her primary complaint is axial low back pain. She would like to proceed with lumbar medial branch blocks. These were briefly discussed at her last follow up. The recommended procedure is discussed with the patient in detail. Questions related to the procedure are answered. She is agreeable to proceed. This procedure is ordered today as she has failed at least 4 weeks of conservative treatment including home exercises and medication management. She understands medial branch blocks/RFA will only address axial pain. We will follow up after the procedure to assess benefit and further treatment planning. [email or web address] Not available 07/10/2023 09:03:17 08/15/2023 08/15/2023 Interval Hx: Ms. Lara follows up today with low back and right leg pain. She is S/P bilateral L3-5 LMBB to address axial low back pain. Unfortunately, this procedure did not provide benefit for any period of time. She continues to report low back pain interfering with mobility and ability to perform ADLs. Also reports right leg pain, posterior aspect of leg to the knee. She has been evaluated by [facility] with no surgery recommended. She is currently wearing a holter monitor, reports she has been taken off all blood pressure medication after several hypotensive episodes. Also reports she feels 'chest tightening' after steroid injections in the past. She will follow up with cardiology in September for monitor results. No other health changes reported today. HPI: This is a 37-year-old female with left foot and right leg pain She was referred by Dr. Valle, has chronic left foot pain. Has recent developed right lower extremity radiculopathy as well. Denies incontinence or cauda equina symptoms. No prior back surgery, had a surgery evaluation in the past, has an upcoming follow-up with them. Is unaware of who the surgery team is and where they operate. Physical therapy in the past not beneficial. This was for her low back and left foot pain. Anticoagulants: None PMHx: Hypertension INJ Hx: 07/21/2023 #1 LMBB Bilateral L3-L5; 0% 06/02/23 R SI injection 0% relief - performed at [facility] 04/11/2023 #1 ILESI L5/S1; 0% relief Foot injections on the left without benefit PSHx/Surgical Evaluation: Referred by Dr. Valle, no prior back surgery Evaluated by Dr. Dubois, ortho, no surgery recommended IMAGING: C XR 03/29/23 No acute fracture or malalignment. Intervertebral disc and vertebral body heights are preserved. Cervical lordosis preserved. Facet joints are properly aligned. Mild degenerative disease at C5-6. Mild degenerative changes without acute osseous abnormality Lumbar XR 02/28/23 No acute fracture or malalignment. Mild rightward curvature. Mild degenerative changes with small osteophytes. Post op changes in right abdomen and pelvis L MRI 02/28/23 L1-4 no significant disc bulge or herniation. No severe spinal canal stenosis. No significant neural foraminal narrowing L4-5 small broad-based central disc protrusion without significant spinal canal stenosis. Right neural foramen appears patent. Left foraminal disc bulging without significant neural foraminal stenosis L5-S1 small broad-based central disc protrusion which causes minimal mass effect on anterior thecal sac. No significant spinal canal stenosis. Protrusion appears to mildly abut central S1 nerve roots in right lateral recess. Bilateral foraminal disc bulging and facet hypertrophy without significant neural foraminal stenosis The above image findings were discussed with the patient. Medications/Compl iance: Current medications include NSAIDs. History of sedation with Gabapentin The patient feels that they receive adequate analgesia and activity improvement with the medication. The patient denies side effects from the medications. UDS was not obtained. ORT, PHQ-9 and BEN were reviewed today. SUSIE report was reviewed today and is appropriate. Based upon the above I would consider the patient to be Low risk. PT The patient completed over six weeks of physical therapy in the past without benefit for their pain ASSESSMENT/PLAN This is a 37-year-old with low back and right leg pain. Lumbar medial branch blocks were not beneficial for axial component of her pain. We discussed right L4/5, L5/S1 TF-LUKASZ to address her symptoms, however, we will delay this until cardiology follow up is complete. Due to episodes of chest tightening with steroid and hypotensive episodes, I do not want to proceed with further steroid injections until cardiology evaluation and holter monitor results. She is agreeable. As she is scheduled to follow up with them in September, we will plan to follow up in 60 days to discuss their evaluation and next steps. She is agreeable with this plan. [email or web address] Not available 08/15/2023 10:27:27 Plan of Treatment Reminders Order Date Submit Date Provider Last Modified By Organization Details Last Modified Time Details Appointments None recorded. Lab None recorded. Referral None recorded. Procedures medial branch block, lumbar (PROC) - #2 LMBB Bilateral L3-L5 no sed [place] Rai 2023 024 [email or web address] Not available 4 16:08:09 medial branch block, lumbar (PROC) - #1 bilateral L3-5 LMBB 2023 024 [email or web address] Not available 4 09:16:12 Surgeries None recorded. Imaging None recorded. Medication Orders None recorded. Patient TargetsNo targets recorded. Patient Instructions Encounter Date Encounter Id Patient Instructions Last Modified By Organization Details Last Modified Time 07/10/2023 [id number] high blood pressure: care instructions [email or web address] Not available 07/10/2023 09:03:52 A healthy lifestyle: care instructions [email or web address] Not available 07/10/2023 09:03:52 advance directives: care instructions [email or web address] Not available 07/10/2023 09:03:52 depression and chronic disease: care instructions Not available 07/10/2023 09:03:52 safe use of opioid pain medicine: care instructions [email or web address] Not available 07/10/2023 09:03:52 08/15/2023 [id number] high blood pressure: care instructions [email or web address] Not available 08/15/2023 10:27:29 A healthy lifestyle: care instructions [email or web address] Not available 08/15/2023 10:27:29 advance directives: care instructions [email or web address] Not available 08/15/2023 10:27:29 depression and chronic disease: care instructions [email or web address] Not available 08/15/2023 10:27:29 safe use of opioid pain medicine: care instructions Not available 08/15/2023 10:27:29 Reason for Referral None Reported. Results Created Date Observation Date Name Description Value Unit Range Abnormal Flag Note LastModifiedBy Organization Detail LastModifiedTime 03/15/2003/14/2023 MRI, lumba r spine , w/o contr ast No observ ation record ed. [email or web address] [facility] [address], [place], [address], 03/29/2023 10:11:01 03/29/20 23 03/29/2023 XR, cervi baylee spine , 4 or 5 view No observ ation record ed. [email or web address] [facility] [address], [place], [address], 03/31/2023 08:43:47 Result Notes None recorded. Problems Name Problem SNOMED Code Status Onset Date Resolution Date Notes Provider Name and Address Organization Details Recorded Time Lumbar radiculopa thy 090648214 Active 2022 [place] Baker - [facility] 3 10:35:17 Lumbar spondylosi s 159123308 Active 2022 LATAS[place] Baker [facility] 3 10:35:17 Pain in left foot 6044756997725 07 Active 2022 [place] Baker [facility] 3 10:52:21 Cervical radiculopa thy 36696619 Active 2022 SINDY CLARKE [address] [place] [address], [address] , [facility] 3 10:18:45 Overweight 452587914 Active 2023 benny dang [facility] 4 15:22:05 Problem Notes None recorded. Procedures Surgical History Date Name Laterality Status Provider Name and Address Organization Details Recorded Time 07/21/19 24 Diagnostic Lumbar MBB (2 Level Bilateral) completed Savita Allie [facility] 07/21/2023 09:06:18 04/11/20 23 Lumbar LUKASZ: Interlaminar completed Savita Allie [facility] 04/11/2023 14:07:39 Imaging Results None recorded. Procedure Notes None recorded. Medical Equipment None Reported. Allergies Allergen ID Allergen Name Allergen Category Reaction Reaction Severity Criticality Documentation Date Start Date Code Code System Note Provider Name and Address Organization Details Recorded Time 20380122 Iodinated contrast media (substanc e) medicatio n Not available Not available Not available 02/28/2023 [id number] SNOMED [place]ASHA Baker [facility] 3 10:36:02 Medications Name Sig Start Date Stop Date Status Note LastModified by Organization Details LastModified Time promethazin e-DM 6.25 mg-15 mg/5 mL oral syrup TAKE 5 MLS BY MOUTH EVERY 6 HOURS NEEDED FOR COUGH FOR 7 DAYS 07/10 completed Not Available Not Available Not Available naproxen 375 mg tablet TAKE 1 TABLET BY MOUTH TWICE DAILY 07/20 completed Not Available Not Available Not Available azithromyci n 250 mg tablet TAKE 2 TABLETS BY MOUTH ON DAY 1, THEN 1 TABLET DAILY ON DAYS 2 TO 5 02/28 completed Not Available Not Available Not Available ondansetron HCl 4 mg tablet TAKE 1 TABLET BY MOUTH EVERY 8 HOURS NEEDED FOR NAUSEA AND VOMITING 07/10 completed Not Available Not Available Not Available prednisone 20 mg tablet TAKE 2 TABLETS BY MOUTH EVERY DAY FOR 1 DAY 07/10 completed Not Available Not Available Not Available sertraline 100 mg tablet TAKE 1 TABLET BY MOUTH EVERY DAY active Not Available Not Available No t Available cyanocobala min (vit B-12) 1,000 mcg tablet TAKE 1 TABLET ORALLY ONCE DAILY active Not Available Not Available No t Available amlodipine 2.5 mg tablet TAKE 1 TABLET BY MOUTH EVERY DAY 08/14 completed Not Available Not Available Not Available omeprazole 40 mg capsule,del ayed release TAKE 1 CAPSULE BY MOUTH ONCE DAILY active Not Available Not Available No t Available bisoprolol fumarate 5 mg tablet TAKE 1 TABLET BY MOUTH EVERY DAY 08/14 completed Not Available Not Available Not Available propranolol 10 mg tablet TAKE 1 TABLET BY MOUTH ONCE DAILY active Not Available Not Available No t Available ofloxacin 0.3 % ear drops INSTILL 10 DROPS IN THE right ear TWICE DAILY FOR 7 DAYS 07/10 completed Not Available Not Available Not Available oseltamivir 75 mg capsule TAKE 1 CAPSULE BY MOUTH EVERY DAY 07/10 completed Not Available Not Available Not Available cefuroxime axetil 500 mg tablet TAKE 1 TABLET BY MOUTH TWICE DAILY active Not Available Not Available No t Available levofloxaci n 500 mg tablet TAKE 1 TABLET BY MOUTH EVERY 24 HOURS active Not Available Not Available No t Available methylpredn isolone 4 mg tablets in a dose pack TAKE 1 ROW OF TABLETS BY MOUTH EACH DAY INSTRUCTE D ON THE PACKAGE 02/28 completed Not Available Not Available Not Available albuterol sulfate HFA 90 mcg/actuati on aerosol inhaler INHALE 2 PUFFS BY MOUTH EVERY 4 TO 6 HOURS NEEDED FOR WHEEZING OR SHORTNESS OF BREATH 08/14 completed Not Available Not Available Not Available bromphenira mine-pseudo ephedrine-D M 2 mg-30 mg-10 mg/5 mL oral syrup TAKE 5 MLS BY MOUTH EVERY 4 TO 6 HOURS NEEDED FOR COLD SYMPTOMS 02/28 completed Not Available Not Available Not Available ondansetron 4 mg disintegrat ing tablet DISSOLVE 1 TABLET IN MOUTH EVERY 6 HOURS NEEDED FOR NAUSEA OR VOMITING for 5 days 07/10 completed Not Available Not Available Not Available sertraline 50 mg tablet take 1/2 tablet by mouth for 7 days, then 1 tablet daily for 7 days, then 2 tablets daily 07/10 completed Not Available Not Available Not Available cholecalcif manolo (vitamin D3) 125 mcg (5,000 unit) capsule TAKE 1 CAPSULE BY MOUTH ONCE DAILY active Not Available Not Available No t Available doxycycline hyclate 100 mg tablet TAKE 1 TABLET BY MOUTH TWICE DAILY active Not Available Not Available No t Available finasteride 1 mg tablet TAKE 1 TABLET BY MOUTH EVERY DAY 08/14 completed Not Available Not Available Not Available amoxicillin 875 mg-potassiu m clavulanate 125 mg tablet TAKE 1 TABLET BY MOUTH 2 TIMES A DAY UNTIL GONE 02/28 completed Not Available Not Available Not Available hydrochloro thiazide 12.5 mg tablet TAKE 1 TABLET BY MOUTH EVERY DAY FOR FLUID 08/14 completed Not Available Not Available Not Available Contrave 8 mg-90 mg tablet,exte nded release TAKE 2 TABLETS BY MOUTH 2 TIMES A DAY active Not Available Not Available No t Available Vitals Date Recorded Body height Pain severity - 0-10 verbal numeric rating [Score] - Reported Body mass index (BMI) Body weight Oxygen saturation Oxygen saturation in Arterial blood by Pulse oximetry Heart rate Systolic And Diastolic Provider Name and Address Organization Details Last Updated DateTime 4 162.56 cm 5 29.9 kg/m2 67201.0 7 g 98 % 98 % 63 /min 102/76 mm[Hg] benny vasquez [facility] 4 08:43:09 Date Recorded Body height Body mass index (BMI) Body weight Pain severity - 0-10 verbal numeric rating [Score] - Reported Oxygen saturation Oxygen saturation in Arterial blood by Pulse oximetry Heart rate Provider Name and Address Organization Details Last Updated DateTime 4 162.56 cm 29.5 kg/m2 22070.8 9 g 6 96 % 96 % 77 /min jimi no [facility] 4 09:50:43 Date Recorded Body height Pain severity - 0-10 verbal numeric rating [Score] - Reported Body mass index (BMI) Body weight Oxygen saturation Oxygen saturation in Arterial blood by Pulse oximetry Heart rate Systolic And Diastolic Provider Name and Address Organization Details Last Updated DateTime 3 162.56 cm 8 30.2 kg/m2 17610.2 6 g 98 % 98 % 83 /min 121/75 mm[Hg] benny vasquez [facility] 3 14:08:16 Social History Question Answer Notes LastModified by Organizat ion Details LastModified Time Tobacco Smoking Status Never Smoker Bhavya spencersamreen dang [facility] 02/28/2023 10:40:11 Do You Have An Advance Directive? No Information not available 02/28/2023 What Type Of Diet Are You Following? REGULAR Information not available 02/28/2023 What Is The Highest Grade Or Level Of School You Have Completed Or The Highest Degree You Have Received? [id number] Information not available 02/28/2023 What Is Your Relationship Status? Information not available 02/28/2023 Sex: Unknown Functional Status Question Answer Note LastModified by Organization D etails LastModified Time Are you currently employed? No Information not available 02/28/2023 What is your exercise level? None Information not available 02/28/2023 Mental Status None recorded. Family History Nothing Reported. Medical History Condition Response Bipolar Disease N Coronary Artery Disease N Gout N Seizure Disorder N Thyroid Disease N Atrial Fibrillation N Hernia N Head Trauma/Injury N COPD N Depression N Anxiety Disorder N Acid Reflux (GERD) N Cancer N Skin Disorder N Stroke N High Cholesterol N Liver Disease N Rheumatoid Arthritis N Fibromyalgia N Headaches N Autoimmune Disease N Kidney Disease N Osteoarthritis N Neurosurgery N DVT N Peptic Ulcer Disease N Anemia N Heart Attack ([place]) N Diabetes N Cardiomyopathy N Bleeding Disorder N CHF N AIDS/HIV N Inflammatory Bowel Disease N Dementia N Asthma N Substance Abuse N Sleep Apnea N Hepatitis N Heart Disease N Pulmonary Embolism N Chronic Low Back Pain N Hypertension N Osteoporosis N Gynecological HistoryNo gynecological history recorded. Obstetrics History GPAL:G 0 P 0 0 0 0 Past Encounters Encounter ID Performer Location Encounter Start Date Encounter Closed Date Diagnosis/Indication Diagnosis SNOMED-CT Code Diagnosis ICD10 Code Diagnosis Note [id number] AKI MOON MD [place] [address],[facility] [address] [place] [address] 02/28/2023 09:34:23 02/28/2023 10:59:07 Lumbar radiculopathy [id number] M54.16 [id number] AKI MOON MD [place] [address] [place] [address] 03/29/2023 09:39:57 03/29/2023 10:23:07 Lumbar radiculopathy [id number] M54.16 Cervical radiculopathy [id number] M54.12 [id number] AKI MOON MD [place] [address] [place] [address] 04/11/2023 13:47:29 04/11/2023 14:05:20 Lumbar radiculopathy [id number] M54.16 [id number] AKI MOON MD [place] [address] [place] [address] 05/03/2023 13:51:39 05/03/2023 15:15:44 Lumbar radiculopathy [id number] M54.16 Cervical radiculopathy [id number] M54.12 [id number] AKI MOON MD [place] [address] [place] [address] 07/10/2023 08:33:50 07/10/2023 09:15:30 Cervical radiculopathy [id number] M54.12 Long-term drug therapy [id number] Z79.899 Lumbar spondylosis [id number] M47.226 [id number] MD Jahaira MALDONADO [address] [place] [address] 07/21/2023 08:33:24 07/21/2023 09:01:34 Lumbar spondylosis [id number] M47.631 [id number] MD Jahaira MALDONADO [address] [place] [address] 08/15/2023 09:32:55 08/15/2023 10:14:39 Lumbar spondylosis [id number] M47.896 Cervical radiculopathy 13575701 M54.12 Long-term drug therapy [id number] Z79.899 Health Concerns Section Related Observation LastModified by Organization Detai ls LastModified Time None Recorded Concern Status LastModified by Organization Details LastModified Time None Recorded Advance Directives Directive N: Payers Insurance Date Sequence Insurance Name Policy Number Policy Tracey Covered Member ID Tracey Member ID Guarantor Name 10/09/2023 1 [facility] Cole Lara [id number] Pham Lara Notes Date Note Type Note Provider Name and Address Organization Details Recorded Time 3 text/html Low back painReported by PatientHPIFor associated symptoms, patient reportsnumbness. 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 For onset, patient reportsdate of onset: (gradually getting wrose). For location, patient reportsparaspinal: right,buttock: right, andradiating down the right lower extremity to the foot. For duration, patient reportsvaries throughout the day. For context, patient reportsstarted without cause. For quality, patient reportsburningandsharp. For pain intensity, patient reportscurrent pain level: 8/10,average pain level: 7/10, andworst pain level: 8/10. For alleviating factors, patient reportsnothing helps. For aggravating factors, patient reportssitting,standing, lying down, andwalking. For prior imaging, patient reportsmri (mri lumbar spine 06/2018). For lumbar surgery, patient reportsnone. For physical therapy, patient reportscurrently in pt: no improvement in pain/symptoms,facility: ([facility] physcial therapy),complete more than 6weeks,dates: ([id number]),response to therapy: no improvement in pain/symptoms,currently participating in home exercise program(hep): not effective, anddate started hep: 4 days per week: 3. For medications history, patient reportsnsaids: (not effective)andneuropathic s: (gabapentin 300mg- not effective). For other conservative treatments, patient reportschiropractic treatments: not effective,heat: not effective,ice: not effective, andtens unit: not effective. For prior pain management, patient reportsno. For oswestry disability index (ben), patient reportsscore/date completed: (30). For interventional treatment history, (none).ROS as noted in the HPI Patient is here today for inj f/u. On 04/11/2023, patient had #1 ILESI L5/S1; reports 0% relief. States no changes since last visit, pharmacy verified. Pain is 8/10 today. SINDY CLARKE [address] [place] [address], [phone], [facility] 05/03/2023 15:07:29 4 text/html Low back painReported by PatientHPIFor associated symptoms, patient reportsnumbness. 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 For onset, patient reportsdate of onset: (gradually getting wrose). For location, patient reportsparaspinal: right,buttock: right, andradiating down the right lower extremity to the foot. For duration, patient reportsvaries throughout the day. For context, patient reportsstarted without cause. For quality, patient reportsburningandsharp. For pain intensity, patient reportscurrent pain level: 5/10,average pain level: 7/10, andworst pain level: 8/10. For alleviating factors, patient reportsnothing helps. For aggravating factors, patient reportssitting,standing, lying down, andwalking. For prior imaging, patient reportsmri (mri lumbar spine 06/2018). For lumbar surgery, patient reportsnone. For physical therapy, patient reportscurrently in pt: no improvement in pain/symptoms,facility: ([facility] physcial therapy),complete more than 6weeks,dates: ([phone]),response to therapy: no improvement in pain/symptoms,currently participating in home exercise program(hep): not effective, anddate started hep: 4 days per week: 3. For medications history, patient reportsnsaids: (not effective)andneuropathic s: (gabapentin 300mg- not effective). For other conservative treatments, patient reportschiropractic treatments: not effective,heat: not effective,ice: not effective, andtens unit: not effective. For prior pain management, patient reportsno. For oswestry disability index (ben), patient reportsscore/date completed: (30). For interventional treatment history, (none).ROS as noted in the HPI Patient is here today for increased back pain. Med list updated. Pain is 5/10. States no changes since last visit. Pharmacy verified. She has been using the heating pad and trying to do stretches to help alleviate her pain. SINDY CLARKE [address] [place] [address], [phone], [facility] 07/10/2023 09:04:17 4 text/html Low back painReported by PatientHPIFor associated symptoms, patient reportsnumbness. 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 For onset, patient reportsdate of onset: (gradually getting wrose). For location, patient reportsparaspinal: right,buttock: right, andradiating down the right lower extremity to the foot. For duration, patient reportsvaries throughout the day. For context, patient reportsstarted without cause. For quality, patient reportsburningandsharp. For pain intensity, patient reportscurrent pain level: 8/10,average pain level: 7/10, andworst pain level: 8/10. For alleviating factors, patient reportsnothing helps. For aggravating factors, patient reportssitting,standing, lying down, andwalking. For prior imaging, patient reportsmri (mri lumbar spine 06/2018). For lumbar surgery, patient reportsnone. For physical therapy, patient reportscurrently in pt: no improvement in pain/symptoms,facility: ([facility]),complete more than 6weeks,dates: ([phone]),response to therapy: no improvement in pain/symptoms,currently participating in home exercise program(hep): not effective, anddate started hep: 4 days per week: 3. For medications history, patient reportsnsaids: (not effective)andneuropathic s: (gabapentin 300mg- not effective). For other conservative treatments, patient reportschiropractic treatments: not effective,heat: not effective,ice: not effective, andtens unit: not effective. For prior pain management, patient reportsno. For oswestry disability index (ben), patient reportsscore/date completed: (30). For interventional treatment history, (none).ROS as noted in the HPI PT is being seen today for a f/u evaluation and to discuss new options. PT states current level of pain is 6/10 on today 08/14/2023. PT states there have been no new ER visits, hospitalizations, imaging, or specialty appointments since last visit. Medication list updated and pharmacy verified. SINDY CLARKE [address] [place] [address], [phone], [facility] 08/15/2023 10:27:43 OBGyn Episode No OBEpisode recorded.
--- OUTSIDE RECORDS SUMMARY | 2024-12-14 13:22 | XMS_ITS | Clinical Summary ---
Author Organization [facility] ([place], [place], [place], [place]) Address [address] [place] [address] Care Team Providers Care Painter Sign Maintenance Name Role Phone Provider Not In System, [...] 2030 2031 2032 2033 2034 2035 Age FRACISOC [Birads] JACI (6 year) Tyrer [place] (lifetime) Colonoscopy 6 Rangel DEXA [T-score] Frax [...] 2020 Hair loss 2020 Simple goiter 2020 Family History Medical History Relation Name Comments Heart disease Father Diabetes Mother Cancer Other Depression Other Diabetes Other Heart disease Other Relation Name Status Comments Father Mother Other Social History Tobacco Use Types Packs/Day Years [...] Date Scott rded Speak language other than Portuguese at home Not on file 06/10/2023 Want [...] 03/30/2022 9:24 AM EST Plan of Treatment Health Maintenance Due Date Last Done Comments Depression Screening (12+) 1998 Tobacco Cessation Counseling and Screening (12+) 1998 HIV Screening 2001 Hepatitis C Screening 2004 Pap Smear 09/23/2007 DTAP/TDAP/TD VACCINES (2 - Td or Tdap) 03/22/2023 03/22/2013 COVID-19 VACCINE ( season) 2024 Influenza Vaccine (#1) 2025 , 02/03/2020, 03/12/2019, Additional history exists Pneumococcal Vaccine: 0-49 Years Aged Out No longer eligible based on patient's age to complete this topic Insurance [employer] Care Teams Painter Sign Maintenance Relationship Specialty Start Date End Date Provider Not In System, Pawan PCP - General 03/30/22
[2024-12-14 13:24] VITALS: BP 122/76; PULSE 70; RESP 18; TEMP 36.9; O2SAT 97; BMI 27.1
--- NOTE | 2024-12-14 13:31 | CT_ITS ---
PROCEDURE INFORMATION: Exam: CT Lumbar Spine Without Contrast Exam date and time: 12/14/2024 2:07 PM Age: 39 years old Clinical indication: Low back pain; Additional info: Midline L spine non traumatic pain TECHNIQUE: Imaging protocol: Computed tomography of the lumbar spine without contrast. Radiation optimization: All CT scans at this facility use at least one of these dose optimization techniques: automated exposure control; mA and/or kV adjustment per patient size (includes targeted exams where dose is matched to clinical indication); or iterative reconstruction. COMPARISON: MR LUMBAR SPINE WO CON 03/14/2023 4:16 PM FINDINGS: Bones/joints: There is no evidence of acute fracture.There is no evidence of malalignment or dislocation. Broad-based disc bulge at L5/S1 consistent with degenerative disc disease. . Soft tissues: Unremarkable. IMPRESSION: 1. There is no evidence of acute fracture.There is no evidence of malalignment or dislocation. 2. Broad-based disc bulge at L5/S1 consistent with degenerative disc disease. .
--- NOTE | 2024-12-14 13:34 | ED_ITS ---
Discharge Plan Disposition Patient Disposition: Home, Self-Care Prescriptions Prescriptions: New lidocaine 4 % adhesive patch,medicated 1 patch topical DAILY Qty: 5 0RF Rx Instructions: may leave on for up to 12 hrs prednisone 50 mg tablet 50 mg PO DAILY 5 Days Qty: 5 0RF Rx Instructions: Please begin 1 day after ED visit naproxen 500 mg tablet 500 mg PO BID PRN (Reason: pain) 7 Days Qty: 14 0RF cyclobenzaprine 5 mg tablet 5 mg PO TID PRN (Reason: muscle spasm) 5 Days Qty: 15 0RF No Action spironolactone 25 mg tablet 25 mg PO DAILY Qty: 30 5RF topiramate 25 mg tablet 25 mg PO BID Qty: 60 5RF cyclobenzaprine 10 mg tablet 10 mg PO TID PRN (Reason: muscle spasm) Qty: 30 0RF methylprednisolone 4 mg tablets,dose pack See Rx Instructions PO PER PKG DIR Qty: 21 0RF Rx Instructions: PO PER PKG DIR sertraline 100 mg tablet 100 mg PO DAILY Qty: 30 5RF buspirone 10 mg tablet 10 mg PO BID PRN (Reason: anxiety) Qty: 60 5RF cholecalciferol (vitamin D3) 125 mcg (5,000 unit) tablet 125 mcg PO DAILY Qty: 30 5RF Referrals Follow up/Referrals: Charley Chanel APRN [Primary Care Provider, Family Practice] - See instructions Activity Restrictions/Add. Instructions Additional Instructions/Restrictions: No evidence of an acute bony or neurovascular emergency. Please return based on symptoms that we discussed otherwise take your symptomatic medications and follow-up with primary care doctor as needed. Clinical Impressions Clinical Impression: Lumbosacral strain Instructions Patient Instructions: DI for Low Back Pain Print Language Print Language: Kinyarwanda Discharge ED Provider: Tommy Miguel General Adult HPI General Chief complaint: Back Pain/Injury Stated complaint: Lower back pain, L leg numbness-no accident Time Seen by Provider: 12/14/24 13:23 Mode of Arrival: Ambulatory Source of Information: Patient Description of Symptoms (Recalled from ER Triage Doc. by RN): Patient presents to ED for lower back pain for several days with intermittent numbness down the right leg. No reported injury. Patient reports hx of back problems. History of Present Illness HPI narrative: Patient is a 39-year-old previously healthy female presenting today with lower back pain. States that this has been ongoing for the last 2 to 3 days. She has been doing increasing moving at her work taking things in and out of her workspace she states. No definitive injury that she is aware of though. States the pain is in the midline of the low back and has some radiation into the anterior aspect of her right lower extremity. No weakness she has noticed some paresthesias in that right lower extremity. No bowel or bladder incontinence. No urinary retention no history of injection drug use no fever no history of cancer no saddle anesthesia from his standpoint Related Data Previous Rx's ?Medication ?Instructions ?Recorded spironolactone 25 mg tablet 25 mg PO DAILY #30 tabs topiramate 25 mg tablet 25 mg PO BID #60 tabs buspirone 10 mg tablet 10 mg PO BID PRN anxiety #60 tabs 09/02/24 cholecalciferol (vitamin D3) 125 125 mcg PO DAILY #30 tabs 09/02/24 mcg (5,000 unit) tablet sertraline 100 mg tablet 100 mg PO DAILY #30 tabs cyclobenzaprine 10 mg tablet 10 mg PO TID PRN muscle s pasm #30 12/02/24 tabs methylprednisolone 4 mg tablets in See Rx Instructions PO PER PKG DIR 12/02/24 a dose pack #21 tabs cyclobenzaprine 5 mg tablet 5 mg PO TID PRN muscle spa sm 5 12/14/24 days #15 tabs lidocaine 4 % topical patch 1 patch topical DAILY #5 e a 12/14/24 naproxen 500 mg tablet 500 mg PO BID PRN pain 7 day s #14 12/14/24 tabs prednisone 50 mg tablet 50 mg PO DAILY 5 days #5 tab s 12/14/24 Allergies Allergy/AdvReac Type Severity Reaction Status Date / Time Iodinated Contrast Media Allergy Mild Rash Verified 12/14/24 13:30 [facility] Disclaimer: The information contained in this section may have been updated after the patient was seen, as this information can be updated by other users. Medical History Vitamin D deficiency Thinning hair Hematuria GERD (gastroesophageal reflux disease) Cellulitis of left thigh Memory changes Myoclonic jerking while sleeping Essential hypertension Sleep apnea Mild New daily persistent headache Tremor of right hand Hyperthyroidism Thyromegaly She has a 2 mm nodule which does not appear to be abnormal based on ultrasonography Acute right-sided low back pain with right-sided sciatica Obesity (BMI 30.0-34.9) Anxiety and depression Anaphylactic reaction to contrast media Urinary tract infection Pelvic inflammatory disease (PID) Endometriosis History of syncope Migraine History of chest pain Loss of balance Family history of thyroid cancer Fatigue Midline low back pain with right-sided sciatica Costochondritis Abnormal Holter exam Palpitations Bilateral lower extremity edema Neoplasm of uncertain behavior of skin of upper arm Encounter for administration of vaccine Bulky or enlarged uterus 10cm Ovarian cyst bilateral Severe dysmenorrhea Heavy menstrual bleeding Surgical History History of cholecystectomy H/O hysterectomy for benign disease Family History Other Cancer Diabetes Heart attack Social History Smoking Status: Never smoker alcohol intake: never substance use type: denies use current occupational status: unemployed Travel in the last 8 weeks?: None household members: family and children housing: house current occupational exposures/hazards: No caffeine: Yes Have you lived/traveled outside [place] in past 30 days?: No Contact w/someone who lives/traveled outside US past 30 days?: No Exposure to someone with infectious disease in past 14 days?: No Do you have a fever (greater than 100.4 F or 38 C)?: No Have you tested positive for COVID-19?: No Exposed to someone with COVID-19 in past 14 days?: No Do you have a sore throat?: No Do you have a cough?: No Do you have any weakness?: No Do you have any diarrhea?: No Are you experiencing any unusual bleeding?: No Do you have any muscle aches/pain?: No Do you have any abdominal pain?: No Are you experiencing loss of taste or smell?: No Other Medical History Have you received the Flu Vaccine for this season: No Have you received the Pneumonia Vaccine: No ROS Obtained: Yes All systems reviewed & no additional complaints except as d ocumented Physical Exam General General appearance: alert and in no apparent distress Respiratory Respiratory exam: Present normal lung sounds bilaterally Cardiovascular Cardiovascular exam: Present regular rate Back Exam Back exam: Present tenderness (Midline lumbar tenderness no step-offs or deformities) and other (Normal neurovascular exam including sensation and she has normal strength with dorsiflexion plantarflexion of the toe and the ankle in flexion extension at the hip and knee) Neurological Exam Neurological exam: Present alert and oriented X3 Medical Decision Making Medical Records Screening: Per USPSTF and CDC recommendations, given the prevalence of disease in our region, it is our hospital?s policy to screen for HIV and viral Hepatitis for all patients aged 18 and over and those with ongoing risk factors. Rodolfo Inquiry Pt receiving controlled substance: No Vital Signs: 12/14/24 13:24 12/14/24 13:24 Temperature 98.4 F 98.4 F Temperature Source Oral Oral Pulse Rate 70 Pulse Rate [Right] 70 Respiratory Rate 18 18 Blood Pressure 122/76 Blood Pressure [Right Arm] 122/76 Blood Pressure Mean [Right Arm] 91 Blood Pressure Source Automatic Cuff Blood Pressure Source [Right Arm] Automatic Cuff Blood Pressure Position Sitting Blood Pressure Position [Right Arm] Sitting 02 Sat by Pulse Oximetry 97 97 Oxygen Delivery Method Room Air Room Air Orders (Tests/Meds): ED MEDICATIONS Discontinued Medications Generic Name Dose Route Start Last Admin Trade Name Freq PRN Reason Stop Dose Admin Cyclobenzaprine HCl 5 mg 12/14/24 13:31 12/14/24 13:57 Cyclobenzaprine 10mg Tablet PO 12/14/24 13:32 5 mg ONCE ONE Administration Ketorolac Tromethamine 30 mg 12/14/24 13:31 12/14/24 14:01 Ketorolac 30mg/Ml Vial IM 12/14/24 13:32 30 mg ONCE ONE Administration Lidocaine 1 each 12/14/24 13:31 12/14/24 13:58 Lidocaine 5% Transdermal Patch TD 12/14/24 13:32 1 each ONCE ONE Administration Prednisone 60 mg 12/14/24 13:31 12/14/24 13:56 Prednisone 20mg Tab PO 12/14/24 13:32 60 mg ONCE ONE Administration ORDERS Category Date Time Status CT lumbar spine wo con Stat Cat Scan 12/14/24 13:31 Taken Medical Decision Narrative: 39-year-old above history physical she does have midline lumbar spine pain but is low likelihood to have significant bony abnormality but given the midline pain we will get a CT scan to further evaluate for this. No red flags from a cauda equina or central compression standpoint. Most likely musculoskeletal strain secondary to the recent increase in moving she has been doing at work. Symptomatic medications given in the emergency department will follow-up on the CT scan and patient will be discharged with symptomatic treatment and return precautions in terms of when to go back to the emergency department and to follow-up with primary care doctor for an MRI. Reassessment 219 serial neurologic exams are normal and patient however denies feeling any improvement in her symptoms but she remains very comfortable from my assessment. CT scan was performed I personally interpreted shows no acute bony abnormalities radiology read is pending. Patient's been given symptomatic medications to go home with and told to follow-up with primary care doctor also been given return precautions for the emergency department at [facility]. Patient discharged in stable condition Critical Care Critical Care Time Critical Care Time: No
[2024-12-14] MEDS: CYCLOBENZAPRINE 10MG TABLET 5 MG PO (13:57)
[2024-12-14] MEDS: LIDOCAINE 5% TRANSDERMAL PATCH 1 EACH TD (13:58)
[2024-12-14] MEDS: KETOROLAC 30MG/ML VIAL 30 MG IM (14:01)
[2024-12-14 14:22] VITALS: BP 109/78; PULSE 70; RESP 20; TEMP 36.6; O2SAT 99
== END 2024-12-14 14:23 | disposition home or self-care (01) ==
PROVIDERS: Emergency Provider Student in an Organized Health Care Education/Training Program; PCP Nurse Practitioner
DX: S39.012A Strain of muscle, fascia and tendon of lower back, initial encounter (principal); X58.XXXA Exposure to other specified factors, initial encounter
CPT/HCPCS: 72131; 96372; 99284; J1885